=== PATIENT | male | born 1940 | race Caucasian/White ===

== ENCOUNTER → 2016-11-13 | Outpatient (CLI) | payer OTHER ==
[~2016-11-13] MED LIST: ADAP0.1G8 TOP; AMLO2.5T PO; ASPCH81 PO; ATOR-24 PO; CITA20TA9 PO; Centrum Silver PO; ESZO1TAB16 PO; FLM4 PO; GLC500 PO; LEVO75TA PO; LISI-725 PO; LORA-741 PO; METROGEL 1%; OMEP20CA9 PO; ONDA8TAB6 PO; PROC1TAB5 PO; RABE20TA5 PO; SITA100T3 PO
[2016-11-13 13:28] VITALS: BP 100/60; PULSE 106; TEMP 36.8; O2SAT 93
--- NOTE | 2016-11-13 16:35 | Radiation Oncology Follow-Up ---
Radiation Oncology Follow-Up Date of Visit Nov 13, 2016. Reason For Visit Annual follow-up Radiation Completion Date finished radiation to brain : 01-30-2011, and to lung 04-08-2011 Diagnosis (1) Lung cancer Permanent Comment: DIAGNOSIS: Metastatic lung cancer to the brain TREATMENT: 1. 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 Concurrent chemoradiation - 7200 cGy - 04/08/2011 followed by adjuvant chemotherapy which finished in 10/01/2011 Last Edited By: Fabiola Solis on Oct 16:41 Interim History Has been doing well over this past year. He denies any change in respiratory status. He can get some shortness of breath when going up steps. He has had no problems with headaches or dizziness no change in vision no problems with function of the upper or lower extremities. He's been followed closely by Dr. Solis for medical oncology and has had recheck scanning included PET scan as well as MRI of the brain. The MRI of the brain was performed on 01/31/2016. There is no evidence of acute infarction or interval intracranial hemorrhage. Unchanged T 2 prolongation within the left central semiovale. Unchanged other scattered foci of subcortical white matter T2 prolongation. No abnormal enhancement. No new lesions are identified. No new mass or mass effect. The ventricles and extra-axial spaces are unchanged with mild diffuse atrophy. There is no evidence of disease progression or new lesions. He had a PET scan 06/26/2016. This showed no suspicious metabolically active disease identified. Stable post radiation changes in the right upper lobe with healing posterior fourth through sixth rib fractures. Allergies Coded Allergies: No Known Allergies (Unverified , 05/09/11) Home Medications Scheduled Adapalene (Differin), 1 APPLN TOP HS Amlodipine (Norvasc), 5 MG PO DAILY Aspirin (Aspirin Tab-Chewable *), 81 MG PO DAILY Atorvastatin (Lipitor), 40 MG PO DAILY Citalopram Hydrobromide (Celexa), 40 MG PO DAILY Levothyroxine Sodium (Synthroid), 75 MCG PO DAILY Lisinopril (Zestril), 40 MG PO DAILY Lorazepam (Ativan), 0.5 MG PO prn tid Metformin HCL (Glucophage *), 1,000 MG PO BID Ondansetron Hcl (Zofran), 8 MG PO PRN Prochlorperazine Maleate (Compazine), 10 MG PO Q6HR PRN Rabeprazole Sodium (Aciphex), 1 TAB PO DAILY Sitagliptin Phosphate (Januvia), 50 MG PO DAILY Tamsulosin Hcl (Flomax *), 0.4 MG PO DAILY [Centrum Silver], 1 TABLET PO QD [Metrogel 1 %], QD Review of Systems Gastrointestinal: Symptoms: WNL Oral: Symptoms: No Problems Respiratory: Symptoms: SOB With Exertion Urinary: Symptoms: WNL Comments: "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- good now " Skin: Symptoms: No Problems Other Skin Symptoms: " 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 02-08-16 Physical Exam Vital Signs Date Time Temp Pulse Resp B/P Pulse Ox O2 Delivery O2 Flow Rate FiO2 11/13/16 13:28 36.8 106 18 100/60 93 Pain: Side: Bilateral Patient Pain Scale: 0 - 10 Initial Pain Intensity: 0.0 Fatigue: None General Appearance: no apparent distress Eyes: normal inspection, EOMI ENT: normal ENT inspection, hearing grossly normal Neck: no adenopathy, thyroid normal Respiratory/Chest: lungs clear, no respiratory distress, no accessory muscle use Cardiovascular: regular rate, rhythm, no gallop, no murmur Abdomen: non tender, soft, no organomegaly Extremities: non-tender, normal inspection, no pedal edema 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 Assessment & Plan Plan: Continue follow-up with Dr. Solis in medical oncology. Recheck scanning per Dr. Solis. A follow-up appointment with our office was not given. He may call if he has any questions or concerns please be happy to see him. Total Time In Follow-Up I spent 20 minutes speaking to the patient and performing examination. I spent 15 minutes reviewing information in completing this note. Copy To Silvestre Bee MD; Tomer Solis M.D.
== END | disposition home or self-care (01) ==
LOC: C.ONC 13:09
PROVIDERS: ATTEND Radiology Radiation Oncology
DX: Z08 Encounter for follow-up examination after completed treatment for malignant neoplasm (principal); Z92.3 Personal history of irradiation; Z85.118 Personal history of other malignant neoplasm of bronchus and lung

== ENCOUNTER 2017-03-09 13:41 | Emergency (ER) | payer OTHER ==
[~2017-03-09] VITALS: Ht 170.2 cm; Wt 69.7 kg
[~2017-03-09 13:41] MED LIST changes: -ESZO1TAB16 PO; -OMEP20CA9 PO
[2017-03-09 13:44] VITALS: BP 120/70; PULSE 114; TEMP 36.8; O2SAT 94; Ht 170.2 cm; Wt 69.7 kg
--- NOTE | 2017-03-09 14:36 | EMERGENCY ROOM VISIT NOTE ---
ED Visit Note First contact with patient: 14:15 CHIEF COMPLAINT: Right forearm injury HISTORY OF PRESENT ILLNESS: This 76-year-old male presents the ER with chief complaint of a bruise on his right forearm. The patient was seen at [facility] today and sent to the emergency room for an ultrasound of his right forearm. The patient fell less than 2 hours ago and struck the volar aspect of his forearm. The patient denies any elbow or upper arm pain. The patient denies any wrist pain. The patient only has minimal pain at the site of injury. REVIEW OF SYSTEMS:6 system review was performed and was negative unless stated otherwise in history of present illness. PMH: The patient is healthy; diabetes, hypertension, hernia repair, lung cancer SOCIAL HISTORY: Patient lives with his spouse. The patient denies any tobacco or alcohol use. PHYSICAL EXAM: Vital Signs: Were reviewed Reviewed Nurse's notes. GEN.: 76-year -old white male appears in no acute distress. MENTAL Status: Alert and oriented 3. RIGHT FOREARM: On the volar aspect of the mid forearm there is an area of ecchymosis consistent with a broken blood vessel. There is no surrounding erythema or palpable cord. Upper arm is nontender without erythema or edema. EMERGENCY DEPARTMENT COURSE: The patient was evaluated. The patient was independently evaluated by Dr. Segura who also agreed with treatment plan. I discussed with the patient that an ultrasound is not warranted at this time. If the patient has any increased pain and redness in the upper arm and ultrasound would be indicated at that time. The patient is in agreement with treatment plan and was discharged home in stable condition. DIAGNOSIS: Right Arm contusion DISCHARGE INSTRUCTIONS AND TREATMENT: Ice intermittently to the affected area over the next 24 hours then may switch to moist heat for an additional 2-3 days. Tylenol as needed for pain. Current/Historical Medications Scheduled Adapalene (Differin), 1 APPLN TOP HS Amlodipine (Norvasc), 5 MG PO DAILY Aspirin (Aspirin Tab-Chewable *), 81 MG PO DAILY Atorvastatin (Lipitor), 40 MG PO DAILY Citalopram Hydrobromide (Celexa), 40 MG PO DAILY Levothyroxine Sodium (Synthroid), 75 MCG PO DAILY Lisinopril (Zestril), 40 MG PO DAILY Lorazepam (Ativan), 0.5 MG PO prn tid Metformin HCL (Glucophage *), 1,000 MG PO BID Ondansetron Hcl (Zofran), 8 MG PO PRN Prochlorperazine Maleate (Compazine), 10 MG PO Q6HR PRN Rabeprazole Sodium (Aciphex), 1 TAB PO DAILY Sitagliptin Phosphate (Januvia), 50 MG PO DAILY Tamsulosin Hcl (Flomax *), 0.4 MG PO DAILY [Centrum Silver], 1 TABLET PO QD [Metrogel 1 %], QD Allergies Coded Allergies: No Known Allergies (Unverified , 05/09/11) Vital Signs Date Time Temp Pulse Resp B/P (MAP) Pulse Ox O2 Delivery O2 Flow Rate FiO2 03/09/17 13:44 36.8 114 18 120/70 94 Room Air Departure Information Referrals Silvestre Bee MD (PCP) Patient Instructions My [facility]
--- NOTE | 2017-03-09 16:45 | EMERGENCY ROOM VISIT NOTE ---
ED Visit Note First contact with patient: 14:15 I have seen and examined this patient in conjunction with Priya Bush and generally agree with the treatment plan as discussed.
[2017-07-30] MEDS ORDERED: ASPI81TA28 PO (13:36)
[2017-07-30] MEDS ORDERED: MULT-1093 PO (13:37)
[2017-07-30] MEDS ORDERED: AMLO-110 PO (13:44)
[2017-07-30] MEDS ORDERED: DIPH-437 PO (13:44)
[2017-07-30] MEDS ORDERED: TAMS0.4C38 PO (13:44)
[2017-07-30] MEDS ORDERED: LISI40TA PO (15:15)
[2017-08-01] MEDS ORDERED: PANT40TA PO (10:39)
== END 2017-03-09 14:47 | disposition home or self-care (01) ==
LOC: C.EDD 14:28
DX: S50.11XA Contusion of right forearm, initial encounter (principal); W19.XXXA Unspecified fall, initial encounter; E11.9 Type 2 diabetes mellitus without complications; I10 Essential (primary) hypertension; Z79.82 Long term (current) use of aspirin

== ENCOUNTER → 2018-01-06 | Outpatient (CLI) | payer OTHER ==
[~2018-01-06] MED LIST changes: +AMLO-110 PO; -AMLO2.5T PO; -ASPCH81 PO; +ASPI81TA28 PO; -ATOR-24 PO; +CITA40TA4 PO; -Centrum Silver PO; +DIPH-437 PO; -FLM4 PO; -GLC500 PO; -LISI-725 PO; +LISI40TA PO; +METF-384 PO; -METROGEL 1%; +MULT-1093 PO; -ONDA8TAB6 PO; +PANT40TA PO; -PROC1TAB5 PO; -SITA100T3 PO; +TAMS0.4C38 PO
== END | disposition home or self-care (01) ==
LOC: C.PATHSPEC 17:01
PROVIDERS: ATTEND Physician Assistant
DX: L57.0 Actinic keratosis (principal)

== ENCOUNTER → 2018-02-10 | Day surgery (SDC) | payer OTHER ==
[2018-01-06 13:09] VITALS: Ht 170.2 cm; Wt 72.7 kg
[~2018-02-10] VITALS: Ht 170.2 cm; Wt 72.7 kg
[~2018-02-10] MED LIST changes: +500ML BSS 0.3ML EPI 1:1000PF IRRIG ONE; +ACETAMINOPHEN 325 MG TAB PO PRN; +AMVISC PLUS 0.8ML SYRINGE INT OCU ONE; +ATROPINE SULFATE 0.1 MG/ML 5ML SYR IV PRN; +BROM0.07; +BSS FLUSH ONE; -CITA20TA9 PO; +DIFL0.0519; +EpINEphrine INJ 1MG/ML AMP 1 MG/ML AMP ONE; +GATI0.5S OP; +GATIFLOXACIN OP SOLN PER DROP CHARGE OPR SCH; +LACTATED RINGER'S 1000ML 500 ML IV SCH; +LIDOCAINE 3.5% OPH GEL PER APPLICATION CHARGE ONE; +LIDOCAINE HCL 1% MPF 2 ML VIAL ONE; +MIDAZOLAM HCL 1 MG/ML 2ML VIAL ONE; +OCUCOAT 1 ML SOLN IO ONE; +PHENYLEPHRINE HCL 10% OP SOLN PER DROP CHARGE OPR SCH; +POVIDONE-IODINE OP SOLN 30 ML BTL ONE; +PROPARACAINE 0.5% OP SOLN PER DROP CHARGE OPR SCH; -RABE20TA5 PO; +TOBRAMYCIN/DEXAMETHASONE OPH OINT PER APPLN CHARGE ONE
[2018-02-10] MEDS: PHENYLEPHRINE HCL 2.5% OP SOLN PER DROP CHARGE OPR SCH ×2 (06:37→06:42)
[2018-02-10] MEDS: TROPICAMIDE 1% OP SOLN PER DROP CHARGE OPR SCH ×2 (06:38→06:43)
[2018-02-10] MEDS: CYCLOPENTOLATE HCL 1% OP SOLN PER DROP CHARGE OPR SCH ×2 (06:39→06:44)
[2018-02-10] MEDS: KETOROLAC 0.5% OP SOLN PER DROP CHARGE OPR SCH ×2 (06:40→06:45)
--- NOTE | 2018-02-10 06:57 | History & Physical Bridge - SC ---
H&P Re-Evaluation Bridge Note: I have examined the patient, reviewed the History & Physical and in the interval since the performance of the History & Physical I have noted the following changes of clinical significance: Diagnosis: Right Cataract Procedure: Right Cataract Removal with Lens Implant No changes noted
--- NOTE | 2018-02-10 07:21 | Discharge Instructions-SurgCtr ---
Discharge Instructions Date of Service February 10, 2018. Visit Reason for Visit: Cataract Right Eye Discharge Discharge Diagnosis / Problem: cataract Discharge Goals Goal(s): Improve function Medications Stopped Medications Name(s): metformin. last dose friday Activity Recommendations Activity Limitations: per Instructions/Follow-up section Anesthesia . Post Anesthesia Instructions: If you have had General Anesthesia or IV Sedation: * Do not drive today. * Resume driving when surgeon permits. * Do not make important decisions or sign legal documents today. * Call surgeon for: 1. Temperature elevations greater than 101 degrees F. 2. Uncontrollable pain. 3. Excessive bleeding. 4. Persistent nausea and vomiting. 5. Medication intolerance (nausea, vomiting or rash). * For nausea and vomiting use only clear liquids such as: tea, soda, bouillon until nausea subsides, then gradually increase diet as tolerated. * If you have any concerns or questions, call your surgeon's office. If physician is unavailable and it is an emergency, call 911 or go to the nearest emergency room. . Diet Recommendations Home Diet: resume previous diet Procedures Procedures Performed: Right Cataract Phacoemulsification With Intraocular Lens Implant Pending Studies Studies pending at discharge: no Medical Emergencies . Who to Call and When: Medical Emergencies: If at any time you feel your situation is an emergency, please call 911 immediately. . Non-Emergent Contact Non-Emergency issues call your: Chute Feeder . . "Provider Documentation" section prepared by Aurelio Monahan. .
--- NOTE | 2018-02-10 07:21 | [facility] Operative Report ---
Operative Report Date of Service February 10, 2018. Operative Report 1. PREOPERATIVE DIAGNOSIS: Cataract of the right eye. 2. POSTOPERATIVE DIAGNOSIS: Same. 3. PROCEDURE: Phacoemulsification with intraocular lens implantation of the right eye. SURGEON: Dr. Aurelio Monahan. ANESTHESIA: Topical Lidocaine gel, 1% Non- Preserved intracameral Lidocaine, and monitored intravenous sedation. INDICATIONS FOR THE PROCEDURE: The patient is a 77 - year-old male with a history of cataract of the right eye causing significant visual impairment. The details of the proposed procedure were explained to the patient who asked appropriate questions and following discussion of all risks, benefits and alternatives agreed to have the procedure done. 4. OPERATION AND FINDINGS: DESCRIPTION OF PROCEDURE: After informed consent was obtained, the patient was brought to the Operating Room at the [facility]. The patient was placed in a supine position and then the right eye was prepped and draped in the usual sterile fashion for intraocular surgery. A drop of topical Lidocaine gel was placed in the operative eye. A wire lid speculum was then placed in the fornices. A corneal paracentesis was then created temporally. The Non-Preserved Lidocaine was then instilled into the anterior chamber. The anterior chamber was then pressurized with viscoelastic. A 2.0 mm clear corneal incision was then created temporally. A cystotome was inserted into the anterior chamber and used to create a tear in the anterior lens capsule. This capsular tear was then used to create a small flap and the flap was dragged in a counterclockwise direction in order to create a continuous curvilinear capsulorrhexis. Hydrodissection was accomplished with balanced salt solution. Phacoemulsification of the lens nucleus was then performed in a standard [id number] technique. The phaco time was 21 seconds with an average power of 9 %. The remaining cortical material was removed using irrigation aspiration. The capsular bag was then filled with viscoelastic. A [employer] MI60L +19.5 diopters lens was then loaded into the injector and injected into the capsular bag. The remaining viscoelastic was removed with the irrigation aspiration handpiece. The wound was hydrated and then checked and found to be watertight. The intraocular pressure was checked and found to be adequate. The wire lid speculum was removed and the patient's face was cleaned and dried. TobraDex ointment was placed in the inferior fornix. The patient was discharged to the Recovery Room having tolerated the procedure well. There were no complications. The patient will be seen tomorrow in the office for follow-up. I attest to the content of the Intraoperative Record and any orders documented therein. Any exceptions are noted below.
--- NOTE | 2018-02-10 07:39 | Anesthesia Progress Nt - [facility] ---
Anesthesia Post Op Note Date & Time February 10, 2018 at 07:39 Vital Signs Pain Intensity: 0 Vital Signs Past 12 Hours Date Time Temp Pulse Resp B/P (MAP) Pulse Ox O2 Delivery O2 Flow Rate FiO2 02/10/18 07:25 37.2 90 16 115/78 (90) 93 Room Air 02/10/18 06:25 36.6 104 16 147/87 (107) 96 Room Air Notes Mental Status: alert / awake / arousable, participated in evaluation Pt Amnestic to Procedure: Yes Nausea / Vomiting: adequately controlled Pain: adequately controlled Airway Patency, RR, SpO2: stable & adequate BP & HR: stable & adequate Hydration State: stable & adequate Anesthetic Complications: no major complications apparent
[2018-02-10 07:48] VITALS: BP 116/76; PULSE 86; O2SAT 94
== END | disposition home or self-care (01) ==
LOC: X.SURG 06:10
PROVIDERS: ATTEND Ophthalmology
DX: H26.9 Unspecified cataract (principal); E11.21 Type 2 diabetes mellitus with diabetic nephropathy; K21.9 Gastro-esophageal reflux disease without esophagitis; N40.0 Benign prostatic hyperplasia without lower urinary tract symptoms; E78.5 Hyperlipidemia, unspecified; D50.9 Iron deficiency anemia, unspecified; I12.9 Hypertensive chronic kidney disease with stage 1 through stage 4 chronic kidney disease, or unspecified chronic kidney disease; C34.11 Malignant neoplasm of upper lobe, right bronchus or lung; K22.70 Barrett's esophagus without dysplasia; E03.9 Hypothyroidism, unspecified; N18.3 Chronic kidney disease, stage 3 (moderate); Z79.82 Long term (current) use of aspirin; Z87.891 Personal history of nicotine dependence; Z87.19 Personal history of other diseases of the digestive system; Z83.3 Family history of diabetes mellitus; Z82.49 Family history of ischemic heart disease and other diseases of the circulatory system; Z82.5 Family history of asthma and other chronic lower respiratory diseases

== ENCOUNTER 2025-09-22 07:20 | Inpatient (IN) ==
--- NOTE | 2025-09-22 07:43 | Emergency Department Note ---
Impression & Plan Sepsis, C. difficile colitis, Acute renal failure, Acute dehydration, Acute hypotension, Acute hyponatremia, Pleural effusion, Hypothermia, Hypocalcemia, Abdominal ascites ED Provider Note NAME: CORDELL OWENS AGE: 84 SEX: M : 1940 ARRIVES VIA: Ambulance INFORMANT: Patient, EMS ED PROVIDER(S): Lazaro Fuller DO CHIEF COMPLAINT: Generalized weakness HPI: The patient is an 84-year-old male who presented to the emergency department for an evaluation of generalized weakness. The patient was in our facility recently for pneumonia. He went home and was doing well. The patient started having problems with diarrhea. He tested positive for C. difficile. The patient states that he having generalized weakness and shortness of breath over the last 48 hours. He normally does not have to wear oxygen all the time but recently had to increase his oxygen. The patient was placed on a nonrebreather mask prior to arrival. His oxygen saturation was 84%. The patient is had no vomiting. He states he does have some chest discomfort but more of a pressure. He denies having any abdominal pain. He denies having any rectal bleeding. He states the antibiotic that he was started on helped his C. difficile diarrhea. ROS: See above HPI for pertinent positives & negatives. A total of 10 systems reviewed and were otherwise negative. PAST MEDICAL HISTORY: See Below PAST SURGICAL HISTORY: See Below FAMILY HISTORY: See Below SOCIAL HISTORY: See Below HOME MEDICATIONS: See Below ALLERGIES: See Below VITALS: See Below PHYSICAL EXAMINATION: GENERAL: The patient is awake and alert. The patient is anxious appearing. EYES: The conjunctivae are clear. The pupils are round and reactive. EARS, NOSE, MOUTH AND THROAT: The nose is without any evidence of any deformity. Mucous membranes are dry. NECK: The neck is nontender and supple. RESPIRATORY: Tachypnea was noted. Conversational dyspnea was noted. Lung sounds are relatively clear except for the right base. There were rales at the right base. CARDIOVASCULAR: Regular rate and rhythm noted there no murmurs rubs or gallops normal S1 normal S2. GASTROINTESTINAL: The abdomen is soft. Abdomen is nontender. MUSCULOSKELETAL/EXTREMITIES: There is no evidence of gross deformity full range of motion is noted in the hips and shoulders. SKIN: Skin is cool and dry. There is mild pedal edema noted. NEUROLOGIC: Patient is awake alert and oriented x3. Strength is symmetric but diminished. MEDICAL DECISION MAKING: The patient is an 84-year-old male who presented to the emergency department for an evaluation of generalized weakness. The patient was septic in appearance. He was hypotensive and hypothermic. He was treated with IV fluids as well as IV steroids and IV antibiotics in usual fashion. I discussed the patient's laboratory and radiographic studies with him and his family numbers. I discussed his case with the on-call ICU attending. I also notified the [facility] team. They will evaluate the patient in the emergency department for further management and disposition. The patient was found to have multiple electrolyte abnormalities. It is possible this is being caused by his C. difficile colitis. He said diarrhea for many days. Reportedly he tested positive for C. difficile and was started on Dificid. He is had 2 doses and has had significant improvement of his diarrhea. Initial CAT scans were ordered with contrast however given the elevation in creatinine we will start with noncontrast imaging. Triage Nursing notes reviewed. Prior medical records reviewed Vital Signs: reviewed and remarkable for hypotension and hypothermia. Differential diagnosis: Infection, dehydration, metabolic abnormality, hypo/hyperglycemia, electrolyte disturbance, anemia, hypoxia, cardiac sources, intracerebral event, toxicologic, neurologic, as well as other pathologies. ER treatment provided: See below Diagnostics interpreted by me: ECG: EKG was obtained in the emergency department. My interpretation is sinus rhythm at 70 bpm. PACs were noted. There was no acute ST segment abnormalities noted. This was compared to a tracing from August 24, 2025. There was a decrease in the rate otherwise no specific changes noted. Prehospital EKG was reviewed. My interpretation is normal sinus rhythm at 68 bpm. There is no ectopy. Nonspecific inferior ST abnormalities were noted. This is resolved on the tracing obtained in the emergency department. Cardiac Monitoring: An order was placed for continuous cardiac monitoring. The monitor shows a rate of 65 bpm with sinus rhythm. Laboratory studies: As stated above and show below. Imaging studies: See below. Radiographic imaging was reviewed by myself Consultation(s): I discussed this case with Dr. Conte who is on for the ICU. The [facility] hospitalist group, Dr. Mobley was notified about the patient. ED COURSE: Procedures: none Critical Care: I have personally spent greater than 45 minutes of critical care time in the direct management of this patient. This includes bedside care, interpretation of diagnostic studies, and testing, discussion with consultants, patient, and family members, and other required patient management activities. This 45 minutes is in excess of all separately billable procedures. Past Med/Surg History Problem List (Updated 09/22/25 @ 09:29 by Jay Owen MD) Septic shock Abdominal ascites (Acute) Hypocalcemia (Acute) Hypothermia (Acute) Pleural effusion (Acute) Acute hyponatremia (Acute) Acute hypotension (Acute) Acute dehydration (Acute) Acute renal failure (Acute) C. difficile colitis (Acute) Sepsis (Acute) Hypoxia (Acute) Pneumonia (Acute) COPD (chronic obstructive pulmonary disease) (Acute) PNA (pneumonia) NIKOLAY (iron deficiency anemia) (Chronic) Lung cancer (Chronic) "DIAGNOSIS: Metastatic lung cancer to the brain TREATMENT: 1. 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 Concurrent chemoradiation - 7200 cGy - 04/08/2011 followed by adjuvant chemotherapy which finished in 10/01/2011" Encounter for pre-operative examination DM II (diabetes mellitus, type II), controlled (Chronic) BPH (benign prostatic hyperplasia) (Chronic) HLD (hyperlipidemia) (Chronic) HTN (hypertension) (Chronic) Anxiety (Chronic) Roman's esophagus (Chronic) Gastric ulcer (Acute) resolved Medical History Hx of gastric ulcer Depression Hypothyroidism History of lung cancer DX 2010 - ON [place] TILL 2014 TREATMENT: 1. 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 Concurrent chemoradiation - 7200 cGy - 04/08/2011 followed by adjuvant chemotherapy which finished in 10/01/2011" History of Mohs micrographic surgery for skin cancer X2 History of skin cancer Dry eyes Acid reflux Surgical History H/O eye surgery Right Eye Descemet Membrane Endothelial Keratoplasty (DMEK) History of left cataract surgery History of right cataract surgery History of endoscopy History of hernia surgery History of colonoscopy Family History Grandfather Family history of diabetes mellitus Social History Smoking Status: Former smoker Tobacco Type: Cigarettes Age Started Using Tobacco: 19; Age Quit Using Tobacco: 49; packs per day: 1; Second Hand Exposure: No; Do You Dip or Chew Tobacco: No; Hx Alcohol Use: No Hx Substance Use: No Preferred Language: French Communication Ability: Effective Property Accountant Required: No Beliefs That Will Affect Care: None Current Living Situation: Spouse Other Information That Helps Us Care for You: No Feels Safe at Home: Yes Safety Concerns: Feels Safe At This Time Assistive Devices: Cane and Glasses Allergies Allergies Allergy/AdvReac Type Severity Reaction Status Date / Time pollen extracts Allergy Intermediate congestion Verified 09/09/25 08:57 Home Meds Home Medications Medication Instructions Recorded Confirmed amlodipine 2.5 mg tablet (Norvasc) 2.5 mg PO BID 03/01/22 09/22/25 atorvastatin 40 mg tablet (Lipitor) 40 mg PO QAM 03/01/22 09/22/25 citalopram 20 mg tablet (Celexa) 20 mg PO QAM 03/01/22 09/22/25 cyclosporine 0.05 % eye drops in a 1 drp OPB BID 03/01/22 09/22/25 dropperette (Restasis) diphenhydramine HCl 25 mg capsule 25 mg PO DIRECTED PRN NEEDED 03/01/22 09/22/25 (Benadryl) dutasteride 0.5 mg capsule 0.5 mg PO QAM 03/01/22 09/22/25 levothyroxine 75 mcg capsule 75 mcg PO DAILYBB 03/01/22 09/22/25 lisinopril 20 mg tablet 20 mg PO QAM 03/01/22 09/22/25 lorazepam 0.5 mg tablet (Ativan) 0.5 mg PO Q8H PRN Anxiety 03/01/22 09/22/25 qjvgnfhmftxw-odbovpux-oskaad tablet 1 tab PO QAM 03/01/22 09/22/25 pantoprazole 40 mg tablet,delayed 40 mg PO DAILY 03/01/22 09/22/25 release (Protonix) tamsulosin 0.4 mg capsule (Flomax) 0.4 mg PO QAM 03/01/22 09/22/25 acetaminophen 500 mg tablet 500 mg PO Q6H PRN PAIN/FEVER 08/24/25 09/22/25 (Tylenol Extra Strength) fluorometholone acetate 0.1 % eye 1 drp OPB QAM 08/24/25 09/22/25 drops,suspension (Flarex) peg 400-propylene glycol 0.4 %-0.3 1 drp OPB DIRECTED PRN Dry Eyes 08/24/25 09/22/25 % eye drops (Systane (propylene glycol)) sildenafil 100 mg tablet 100 mg PO DAILY PRN Sexual Activity 08/24/25 09/22/25 Previous Rx's Medication Instructions Recorded Anoro Ellipta 62.5 mcg-25 1 inh inhalation DAILY #60 ea 09/16/25 mcg/actuation powder for inhalation (umeclidinium-vilanterol) Results & Data (ED) Vital Signs Vital Signs - 24 hr 09/22/25 07:38 09/22/25 07:42 09/22/25 07:45 Temperature Temperature Source Pulse Rate 65 65 Pulse Rate from SpO2 Sensor Respiratory Rate 26 H 24 Blood Pressure 62/35 L Blood Pressure Mean 48 Pulse Oximetry Oxygen Delivery Method Oxygen Flow Rate Sepsis Recent Fever Within 48 Hours Sepsis New/Unexplained Change in Mental Status Sepsis Action Taken by Nursing 09/22/25 07:47 09/22/25 07:51 09/22/25 07:53 Temperature Temperature Source Pulse Rate 69 70 Pulse Rate from SpO2 Sensor Respiratory Rate 28 H Blood Pressure 74/32 L 77/36 L Blood Pressure Mean 53 49 Pulse Oximetry Oxygen Delivery Method Oxygen Flow Rate Sepsis Recent Fever Within 48 Hours Sepsis New/Unexplained Change in Mental Status Sepsis Action Taken by Nursing 09/22/25 07:54 09/22/25 07:55 09/22/25 08:00 Temperature Temperature Source Pulse Rate 69 68 Pulse Rate from SpO2 Sensor 77 68 Respiratory Rate 25 H 27 H Blood Pressure 76/40 L 82/37 L Blood Pressure Mean 52 52 Pulse Oximetry 100 96 Oxygen Delivery Method Nasal Cannula Nasal Cannula Oxygen Flow Rate 4 4 Sepsis Recent Fever Within 48 Hours Sepsis New/Unexplained Change in Mental Status Sepsis Action Taken by Nursing 09/22/25 08:00 09/22/25 08:02 09/22/25 08:02 Temperature 35.6 C L Temperature Source Axillary Pulse Rate 70 Pulse Rate from SpO2 Sensor Respiratory Rate 25 H Blood Pressure 82/37 L 72/43 L Blood Pressure Mean 53 52 Pulse Oximetry 99 98 Oxygen Delivery Method Room Air Room Air Oxygen Flow Rate Sepsis Recent Fever Within 48 Hours Yes Sepsis New/Unexplained Change in Mental Status Yes Sepsis Action Taken by Nursing Physician Notified 09/22/25 08:05 09/22/25 08:09 09/22/25 08:10 Temperature Temperature Source Pulse Rate 75 Pulse Rate from SpO2 Sensor Respiratory Rate 17 Blood Pressure 75/39 L 86/47 L Blood Pressure Mean 43 52 Pulse Oximetry 96 Oxygen Delivery Method Nasal Cannula Oxygen Flow Rate 4 Sepsis Recent Fever Within 48 Hours Sepsis New/Unexplained Change in Mental Status Sepsis Action Taken by Nursing 09/22/25 08:10 09/22/25 08:11 09/22/25 08:12 Temperature Temperature Source Pulse Rate 73 Pulse Rate from SpO2 Sensor 85 Respiratory Rate 11 L Blood Pressure 86/47 L Blood Pressure Mean 52 Pulse Oximetry 97 100 Oxygen Delivery Method Nasal Cannula Oxygen Flow Rate 4 Sepsis Recent Fever Within 48 Hours Sepsis New/Unexplained Change in Mental Status Sepsis Action Taken by Nursing 09/22/25 08:15 09/22/25 08:18 09/22/25 08:20 Temperature Temperature Source Pulse Rate 67 Pulse Rate from SpO2 Sensor 66 Respiratory Rate 23 Blood Pressure 78/39 L 78/39 L 79/41 L Blood Pressure Mean 50 52 53 Pulse Oximetry 100 Oxygen Delivery Method Oxygen Flow Rate Sepsis Recent Fever Within 48 Hours Sepsis New/Unexplained Change in Mental Status Sepsis Action Taken by Nursing 09/22/25 08:20 09/22/25 08:20 09/22/25 08:20 Temperature Temperature Source Pulse Rate Pulse Rate from SpO2 Sensor Respiratory Rate Blood Pressure 79/41 L 79/41 L 79/41 L Blood Pressure Mean 53 53 53 Pulse Oximetry Oxygen Delivery Method Oxygen Flow Rate Sepsis Recent Fever Within 48 Hours Sepsis New/Unexplained Change in Mental Status Sepsis Action Taken by Nursing 09/22/25 08:21 09/22/25 08:45 09/22/25 08:48 Temperature Temperature Source Pulse Rate 65 66 60 Pulse Rate from SpO2 Sensor 66 65 66 Respiratory Rate 25 H 22 21 Blood Pressure 76/39 L Blood Pressure Mean 51 Pulse Oximetry 100 100 96 Oxygen Delivery Method Nasal Cannula Nasal Cannula Nasal Cannula Oxygen Flow Rate 4 4 4 Sepsis Recent Fever Within 48 Hours Sepsis New/Unexplained Change in Mental Status Sepsis Action Taken by Nursing 09/22/25 08:50 09/22/25 08:51 09/22/25 09:09 Temperature Temperature Source Pulse Rate 63 Pulse Rate from SpO2 Sensor 62 64 Respiratory Rate 21 Blood Pressure 75/35 L Blood Pressure Mean 42 Pulse Oximetry 95 92 Oxygen Delivery Method Nasal Cannula Nasal Cannula Oxygen Flow Rate 4 4 Sepsis Recent Fever Within 48 Hours Sepsis New/Unexplained Change in Mental Status Sepsis Action Taken by Nursing 09/22/25 09:11 09/22/25 09:12 09/22/25 09:15 Temperature Temperature Source Pulse Rate 64 Pulse Rate from SpO2 Sensor 64 Respiratory Rate 24 Blood Pressure 82/41 L 79/36 L Blood Pressure Mean 59 46 Pulse Oximetry 96 Oxygen Delivery Method Nasal Cannula Oxygen Flow Rate 4 Sepsis Recent Fever Within 48 Hours Sepsis New/Unexplained Change in Mental Status Sepsis Action Taken by Nursing 09/22/25 09:15 09/22/25 09:18 09/22/25 09:20 Temperature Temperature Source Pulse Rate 66 66 Pulse Rate from SpO2 Sensor 69 59 L Respiratory Rate 22 23 Blood Pressure 79/36 L 77/37 L Blood Pressure Mean 50 53 Pulse Oximetry 96 96 Oxygen Delivery Method Nasal Cannula Nasal Cannula Oxygen Flow Rate 4 4 Sepsis Recent Fever Within 48 Hours Sepsis New/Unexplained Change in Mental Status Sepsis Action Taken by Nursing 09/22/25 09:21 09/22/25 09:24 09/22/25 09:25 Temperature Temperature Source Pulse Rate 65 64 Pulse Rate from SpO2 Sensor 55 L Respiratory Rate 21 22 Blood Pressure 81/44 L Blood Pressure Mean 57 Pulse Oximetry 96 90 Oxygen Delivery Method Nasal Cannula Nasal Cannula Oxygen Flow Rate 4 4 Sepsis Recent Fever Within 48 Hours Sepsis New/Unexplained Change in Mental Status Sepsis Action Taken by Nursing 09/22/25 09:25 Temperature Temperature Source Pulse Rate Pulse Rate from SpO2 Sensor Respiratory Rate Blood Pressure 81/44 L Blood Pressure Mean 57 Pulse Oximetry Oxygen Delivery Method Oxygen Flow Rate Sepsis Recent Fever Within 48 Hours Sepsis New/Unexplained Change in Mental Status Sepsis Action Taken by Care Home Medications Current Medication List: was personally reviewed by me Laboratory Data Attestation: I reviewed the patient's lab results. 09/22/25 07:50 09/22/25 11:02 Lab Results 09/22/25 09/22/25 Range/Units 07:50 07:58 WBC 19.31 H (4.8-10.8) K/ul RBC 3.37 L (4.70-6.10) M/uL Hgb 11.2 L (14.0-18.0) g/dL Hct 32.0 L (42.0-52.0) % MCV 95.0 (80.0-100.0) fL MCH 33.2 (25.0-34.0) pg MCHC 35.0 (32.0-36.0) g/dL RDW Std Deviation 53.1 H (36.4-46.3) fL RDW Coeff of Vanessa 15.0 H (11.5-14.5) % Plt Count 396 (130-400) K/uL MPV 9.8 (9.4-12.4) fL Immature Gran % (Auto) 3.7 % Neut % (Auto) 86.4 % Lymph % (Auto) 1.7 % Bureau % (Auto) 7.9 % Eos % (Auto) 0.1 % Baso % (Auto) 0.2 % Neut # (Auto) 16.69 H (1.40-6.50) K/uL Lymph # (Auto) 0.32 L (1.20-3.40) K/uL Bureau # (Auto) 1.53 H (0.11-0.59) K/uL Eos # (Auto) 0.01 (0.00-0.50) K/uL Baso # (Auto) 0.04 (0.00-0.20) K/uL Immature Gran # (Auto) 0.72 H (0.01-0.20) K/uL Toxic Vacuolation 1+ Echinocytes 1+ PT 11.4 (9.0-12.0) Seconds INR 1.1 (0.9-1.1) APTT 31 (21-31) Seconds PTT Ratio 1.1 VBG pH 7.05 L (7.36-7.41) VBG pCO2 33 L (38-50) mmHg VBG pO2 44 mmHg VBG HCO3 9 mmol/L VBG O2 Saturation 67.6 % VBG Base Excess -20.4 mEq/L Sodium 121 L (136-145) mmol/L Potassium 4.7 (3.5-5.1) mmol/L Chloride 94 L (98-107) mmol/L Carbon Dioxide 10 L (21-32) mmol/L Anion Gap 17 H (3-11) BUN 116 H (6-23) mg/dl Creatinine 6.40 H* (0.6-1.4) mg/dl Est Cr Clr Drug Dosing 7.9 ml/min eGFR 8.05 BUN/Creatinine Ratio 18.1 (10-20) Glucose 174 H (70-99(Fasting)) mg/dl Osmolality 296 (280-300) mOsm/kg Lactate 3.2 H* (0.4-2.0) mmol/L Calcium 7.3 L (8.6-10.3) mg/dl Magnesium 2.3 (1.7-2.4) mg/dl Total Bilirubin 0.3 (0.2-1.0) mg/dl Direct Bilirubin 0.1 (0-0.2) mg/dl AST 37 (13-39) U/L ALT 35 (7-52) U/L Alkaline Phosphatase 114 H (34-104) U/L Troponin I High Sens 49.1 H (0-20) pg/ml Total Protein 4.7 L (6.0-8.3) gm/dl Albumin 2.2 L (3.4-5.0) gm/dl Procalcitonin 5.51 H (0-0.5) ng/ml Urine Color Dark Yellow Urine Appearance Clear (Clear) Urine pH 5.0 (4.5-7.5) Ur Specific [place] 1.021 (1.000-1.030) Urine Protein Trace H (Negative) Urine Glucose (UA) Negative (Negative) Urine Ketones Trace H (Negative) Urine Blood Negative (Negative) Urine Nitrite Negative (Negative) Urine Bilirubin 1+ H (Negative) Urine Urobilinogen Negative (Negative) Ur Leukocyte Esterase 1+ H (Negative) Urine WBC (Auto) 0-5 (0-5) /hpf Urine RBC (Auto) 11-20 H (0-2) /hpf U Hyaline Cast (Auto) >20 H (0-2) /lpf U Epithel Cells (Auto) 0-2 (0-2) /hpf Urine Bacteria (Auto) None Seen (None Seen) Urine Mucus Present A (None Prsent) Urine Comment SARS-CoV-2 (PCR) NEGATIVE (Negative) Influenza Type A (PCR) Negative (Neg) Influenza Type B (PCR) Negative (Neg) RSV (RT-PCR) Negative (Neg) Administered Medications Norepinephrine Bitartrate (Levophed/D5w) 4 mg in 250 mls @ 24.165 mls/hr IV .[id number] [facility]; Protocol Stop: 10/22/25 09:14 Last Titration: 09/22/25 12:39 Dose: 0.09 mcg/kg/min, 24.2 mls/hr Documented By: MAHAMED Co-signed By: PARI Titration: 09/22/25 10:02 Dose: 0.07 mcg/kg/min, 18.8 mls/hr Documented By: MMF Co-signed By: TDM Admin: 09/22/25 09:26 Dose: 0.05 mcg/kg/min, 13.4 mls/hr Documented By: MMF Co-signed By: DM Discontinued Medications Hydrocortisone Sodium Succinate (Hydrocortisone Sod Succinate 100 Mg/2 Ml Vial) 200 mg IV NOW STA Stop: 09/22/25 08:44 Last Admin: 09/22/25 08:50 Dose: 200 mg Documented By: MMF Sodium Chloride (Nss) 1,000 mls @ 999 mls/hr IV .Q1H1M ONE Stop: 09/22/25 08:28 Last Infusion: 09/22/25 08:31 Dose: Infused Documented By: Admin: 09/22/25 08:13 Dose: 999 mls/hr Documented By: MMF Sodium Chloride (Nss) 1,000 mls @ 999 mls/hr IV .Q1H1M ONE Stop: 09/22/25 09:29 Last Infusion: 09/22/25 08:43 Dose: Infused Documented By: Admin: 09/22/25 08:00 Dose: 999 mls/hr Documented By: MMF Piperacillin Sod/Tazobactam Sod (Zosyn) 4.5 gm in 100 mls @ 200 mls/hr IV NOW ONE; Protocol Stop: 09/22/25 08:58 Last Infusion: 09/22/25 09:42 Dose: Infused Documented By: Admin: 09/22/25 08:43 Dose: 200 mls/hr Documented By: MMF Sodium Chloride (Nss) 1,000 mls @ 999 mls/hr IV .Q1H1M ONE Stop: 09/22/25 09:43 Last Infusion: 09/22/25 09:42 Dose: Infused Documented By: Admin: 09/22/25 08:47 Dose: 999 mls/hr Documented By: MMF Metronidazole (Flagyl) 500 mg in 100 mls @ 100 mls/hr IV NOW STA; Protocol Stop: 09/22/25 10:16 Last Infusion: 09/22/25 10:26 Dose: Infused Documented By: Admin: 09/22/25 09:26 Dose: 100 mls/hr Documented By: CASSANDRA Vancomycin HCl (Vancomycin Hcl 250 Mg Cap) 500 mg PO ONE ONE Stop: 09/22/25 09:31 Last Admin: 09/22/25 10:02 Dose: 500 mg Documented By: CASSANDRA Imaging Data Attestation: I personally reviewed and interpreted this imaging study as follows: My Impression: KUB was obtained in the emergency department. My interpretation is dilated loops of bowel noted, there is no free air, final report below. 1 view chest x-ray was obtained in the emergency department. My interpretation is atelectasis and pleural effusion noted on the right, final report below. Radiologist's Impression: Chest X-Ray 09/22/25 07:28 EXAM: Radiograph of the Chest 1 View INDICATION: Sepsis TECHNIQUE: Frontal view of the chest. COMPARISON: 08/25/2025 FINDINGS: Lungs and pleural spaces: Increased small right pleural effusion and right basilar airspace consolidation. New coarse bandlike atelectasis noted in the left base and right Ravindra hilum. Improved right upper lobe infiltrate. No pneumothorax. Heart: Stable prominent shadow. Mediastinum: Normal contour. Bones/joints: No fracture, erosion or dislocation. Soft tissues: No abnormality noted. No radiopaque foreign body noted. Vasculature: Stable ectatic aorta. Upper abdomen: No abnormality noted. IMPRESSION: 1. New right basilar infiltrate concerning for pneumonia and increased small right pleural effusion. 2. Improved right upper lobe infiltrate. ACT 112: N/A Electronically signed by Merari Arana 09-22-2025 08:31 AM KUB X-Ray 09/22/25 07:43 EXAM: Radiograph of the Abdomen 1 View INDICATION: Sepsis. Diarrhea. TECHNIQUE: Frontal supine view of the abdomen/pelvis. COMPARISON: No relevant prior studies available. FINDINGS: Limitations: None. Lower thorax: Patchy basilar infiltrates noted. Gastrointestinal tract: Air scattered throughout non-dilated intestinal loops. Organs: Catheter projects over the urinary bladder. Bones/joints: No fracture, erosion or dislocation. Soft tissues: Edematous colonic loops noted with gasless rectum. IMPRESSION: Edematous colon most concerning for colitis. CT abdomen and pelvis recommended preferably with IV contrast. ACT 112: N/A Electronically signed by Merari Arana 09-22-2025 08:33 AM Abdomen/Pelvis CT 09/22/25 08:42 EXAM: CT Abdomen and Pelvis Without Intravenous Contrast INDICATION: C. difficile colitis. Acute renal failure. Sepsis. TECHNIQUE: Axial computed tomography images of the abdomen and pelvis without intravenous contrast. Sagittal and coronal reformatted images were created and reviewed. This CT exam was performed using one or more of the following dose reduction techniques: automated exposure control, adjustment of the mA and/or kV according to patient size, and/or use of iterative reconstruction technique. COMPARISON: No relevant prior studies available. FINDINGS: Limitations: None. Lung bases: See separately dictated chest CT report. ABDOMEN: Liver: Lack of intravenous contrast limits detection of some masses. No abnormality noted. Gallbladder and bile ducts: No calcified stones or surrounding fluid. No ductal dilation. Pancreas: No pancreatic mass, calcification, inflammation or ductal dilation noted. Spleen: No acute abnormality noted. Adrenals: No acute abnormality noted. Kidneys and ureters: Simple bilateral renal cysts noted. No follow-up necessary. No stones or hydronephrosis. Stomach and bowel: There is moderate thickening and inflammation of the entire colon. There is thickening of distal small bowel loops. No small bowel obstruction. No visible pneumatosis. PELVIS: Appendix: The appendix is not distinctly defined. Bladder: Catheter balloon inflated in the urinary bladder which is collapsed and not optimally assessed. No stone noted. Reproductive: No abnormalities noted. ABDOMEN and PELVIS: Intraperitoneal space: Small amounts of free fluid in the abdomen and pelvis. No free air. No loculated collection. Bones/joints: Degenerative changes noted throughout the spine. No acute osseous abnormality seen. Soft tissues: No acute abnormality noted. Vasculature: Atherosclerotic calcification of the aorta and branches. No aneurysm. Lymph nodes: No pathologically enlarged lymph nodes. IMPRESSION: 1. Moderate to severe pancolitis with probable backwash ileitis. 2. Mild ascites without abscess. ACT 112: N/A Electronically signed by Merari Arana 09-22-2025 09:[address] 09/22/25 08:42 EXAM: CT Chest Without Intravenous Contrast INDICATION: Sepsis. C. difficile colitis. Shortness of breath. TECHNIQUE: Axial computed tomography images of the chest without intravenous contrast. Sagittal and coronal reformatted images were created and reviewed. This CT exam was performed using one or more of the following dose reduction techniques: automated exposure control, adjustment of the mA and/or kV according to patient size, and/or use of iterative reconstruction technique. COMPARISON: 08/25/2025 t physical FINDINGS: Limitations: None. Lungs and pleural spaces: Increased small layering right pleural effusion with maximal thickness in the right posterior costophrenic sulcus of 5.2 cm. Stable trace left pleural effusion and thickening. No pneumothorax. Stable right upper lobe irregular segmental airway thickening and bronchiectasis. Increasing consolidation in the apical and posterior right upper lobe. Underlying ground glass infiltrate is improved. There is increased dependent atelectasis in the lower lobes. Heart: Stable enlargement. There is some iatrogenically introduced air in the right ventricle which is not an atypical finding. Mediastinum: The soft distal half of the esophagus is distended with fluid and mildly thickened. Thyroid: No abnormality noted. Bones/joints: No acute changes. Soft tissues: No acute abnormality noted. Vasculature: No abnormality noted. No thoracic aortic aneurysm. Lymph nodes: No enlarged lymph nodes. Intraperitoneal space: Free fluid noted in the upper abdomen. No free air in the upper abdomen. IMPRESSION: 1. Increased right pleural effusion. 2. Increased consolidation in the right upper lobe with stable irregular segmental upper lobe airway thickening. 3. Distended, thickened esophagus with fluid. 4. Free fluid noted in the upper abdomen. ACT 112: N/A Electronically signed by Merari Arana 09-22-2025 09:30 AM Discharge Plan Visit Data Chief Complaint: Weakness Stated Complaint: SOB, CHEST PAIN, CDIFF ED Provider: Lazaro Fuller Discharge Problem: Sepsis, C. difficile colitis, Acute renal failure, Acute dehydration, Acute hypotension, Acute hyponatremia, Pleural effusion, Hypothermia, Hypocalcemia, Abdominal ascites Patient Disposition: Admitted As Inpatient Condition: Fair Discharge Instructions Interventions: ED Discharge Assessment Last Done: 09/22/25 09:56
[2025-09-22] MEDS: SODIUM CHLORIDE 0.9% 1,000 ML IV ONE ×3 (08:00→08:47)
[2025-09-22 08:01] LABS: Base Excess VBG -20.4 mEq/L; HCO3 VBG 9 mmol/L; Oxygen Saturation VBG 67.6 %; PCO2 VBG 33 mmHg (38-50); PO2 VBG 44 mmHg; pH VBG 7.05 (7.36-7.41)
[2025-09-22 08:09] LABS: Hematocrit (blood only) 32.0 % (42.0-52.0); Hemoglobin 11.2 g/dL (14.0-18.0); Mean Corpuscular Hemoglobin 33.2 pg (25.0-34.0); Mean Corpuscular Volume 95.0 fL (80.0-100.0); Platelet Count 396 K/uL (130-400); RDW Standard Deviation 53.1 fL (36.4-46.3); Red Blood Count 3.37 M/uL (4.70-6.10); White Blood Count 19.31 K/ul (4.8-10.8)
[2025-09-22 08:26] LABS: Appearance Urine Clear (Clear); Bacteria Urine Automated None Seen (None Seen); Cast Urine Automated >20 /lpf (0-2); Epithelial Cell Urine Auto 0-2 /hpf (0-2); Glucose Urine UA Negative (Negative); WBC Urine Automated 0-5 /hpf (0-5)
--- NOTE | 2025-09-22 08:32 | XRay Report ---
EXAM: Radiograph of the Chest 1 View INDICATION: Sepsis TECHNIQUE: Frontal view of the chest. COMPARISON: 08/25/2025 FINDINGS: Lungs and pleural spaces: Increased small right pleural effusion and right basilar airspace consolidation. New coarse bandlike atelectasis noted in the left base and right Ravindra hilum. Improved right upper lobe infiltrate. No pneumothorax. Heart: Stable prominent shadow. Mediastinum: Normal contour. Bones/joints: No fracture, erosion or dislocation. Soft tissues: No abnormality noted. No radiopaque foreign body noted. Vasculature: Stable ectatic aorta. Upper abdomen: No abnormality noted. IMPRESSION: 1. New right basilar infiltrate concerning for pneumonia and increased small right pleural effusion. 2. Improved right upper lobe infiltrate. ACT 112: N/A Electronically signed by Merari Arana 09-22-2025 08:31 AM
--- NOTE | 2025-09-22 08:33 | XRay Report ---
EXAM: Radiograph of the Abdomen 1 View INDICATION: Sepsis. Diarrhea. TECHNIQUE: Frontal supine view of the abdomen/pelvis. COMPARISON: No relevant prior studies available. FINDINGS: Limitations: None. Lower thorax: Patchy basilar infiltrates noted. Gastrointestinal tract: Air scattered throughout non-dilated intestinal loops. Organs: Catheter projects over the urinary bladder. Bones/joints: No fracture, erosion or dislocation. Soft tissues: Edematous colonic loops noted with gasless rectum. IMPRESSION: Edematous colon most concerning for colitis. CT abdomen and pelvis recommended preferably with IV contrast. ACT 112: N/A Electronically signed by Merari Arana 09-22-2025 08:33 AM
[2025-09-22 08:41] LABS: Alanine Aminotransferase 35.0 U/L (7-52); Albumin Level 2.2 gm/dl (3.4-5.0); Alkaline Phosphatase 114.0 U/L (34-104); Anion Gap 17.0 (3-11); Bilirubin,Total 0.3 mg/dl (0.2-1.0); Blood Urea Nitrogen 116.0 mg/dl (6-23); Calcium 7.3 mg/dl (8.6-10.3); Carbon Dioxide 10.0 mmol/L (21-32); Chloride 94.0 mmol/L (98-107); Creatinine Clr Calc Pharmacy 7.9 ml/min; Glucose 174.0 mg/dl (70-99(Fasting)); INR 1.1 (0.9-1.1); Magnesium 2.3 mg/dl (1.7-2.4); Partial Thromboplastin Time 31 Seconds (21-31); Potassium 4.7 mmol/L (3.5-5.1); Prothrombin Time 11.4 Seconds (9.0-12.0); Sodium 121.0 mmol/L (136-145); Total Protein 4.7 gm/dl (6.0-8.3)
[2025-09-22] MEDS: PIPERACILLIN/TAZOBACTAM 4.5 GM/100 ML BAG IV ONE (08:43)
[2025-09-22 08:44] LABS: Influenza A virus by PCR Negative (Neg); Influenza B virus by PCR Negative (Neg); SARS CoV2 RNA(COVID-19) Ceph NEGATIVE (Negative)
[2025-09-22] MEDS: HYDROCORTISONE SOD SUCCINATE 100 MG/2 ML VIAL IV STA (08:50)
[2025-09-22 09:00] LABS: Immature Granulocytes # (auto) 0.72 K/uL (0.01-0.20); Immature Granulocytes % (auto) 3.7 %; Toxic Vacuolation 1+
[2025-09-22] MEDS ORDERED: metroNIDAZOLE 500 MG/100 ML BAG IV STA (09:15)
[2025-09-22] MEDS ORDERED: CHERRY SYRUP 5 ML UDP PO STA ×2 (09:15→10:53)
[2025-09-22] MEDS ORDERED: STAT IV Infusion **Titration per Protocol STA ×2 (09:15→13:48)
[2025-09-22] MEDS ORDERED: VANCOMYCIN HCL 500 MG/10 ML SOLN PO STA (09:15)
[2025-09-22] MEDS: metroNIDAZOLE 500 MG/100 ML BAG IV STA (09:26)
[2025-09-22] MEDS: NOREPINEPHRINE/D5W 4 MG/250 ML PLCT IV SCH (09:26)
--- NOTE | 2025-09-22 09:32 | History & Physical Report ---
Date of Service September 22, 2025 Assessment & Plan (1) Septic shock: (2) C. difficile colitis: (3) Acute hyponatremia: (4) Abdominal ascites: (5) Acute hypoxic respiratory failure: Plan 84 year old male presents with progressive weakness, diarrhea and shortness of breath. Diagnosed with c. diff as outpatient 2 days prior to admission, started Dificid day prior to admission. Took his usual medications including antihypertensives day of admission. #Septic shock / c. diff pancolitis Discussed with Dr Conte and Dr Uriarte on admission - surgical consult recommended and placed Secondary to c. diff pancolitis s/p 3L NSS with MAP, ongoing maintenance fluids per ICU Start Levophed, stop all antihypertensives, aim MAP > 65 Vancomycin 500mg PO q6h + Metronidazole 500mg IV q8h #Acute hypoxic respiratory failure / COPD (uncertain severity pending PFTs from recent pulm appointment) Baseline: 2LPM O2 at rest, 4LPM O2 on exertion Requiring 4LPM O2 at rest on admission with accessory muscle use and wheezing on exam - consider routine duonebs (deferred to ICU team) Likely exacerbation due to acute illness but also residual consolidation changes and pleural effusion from recent pneumonia - likely to get worse with IV fluids Aim O2 sats 88-92% Continue maintenance inhaler Incentive spirometry #Acute kidney injury No obstructive etiology on CT Suspect mostly pre-renal in setting of multiple anti-hypertensives but also likely some ATN with prolonged hypoperfusion and current infection Ledbetter catheter placed in ER for accurate I&Os #Acute hyponatremia Suspect from GI losses Repeat BMP after transfer to ICU Urine osm/Na pending #Metabolic acidosis with mixed normal and elevated anion gap (delta bicarb 11, delta anion gap 6) VBG pH 7.1 Lactate 3.2, repeat pending Repeat BMP and VBG with next lactate and consider bicarb drip if NAGMA still present #GERD / history of gastric ulcer (noted in chart) Continue pantoprazole Noted fluid in esophagus on CT - at risk of aspiration, consider SLT consult prior to feeding #HTN Stop all antihypertensives in septic shock #Depression Continue citalopram #Hypothyroidism No prior TSH on file but would not be unit support representative of normal thyroid state with acute illness VTE Prophylaxis - heparin 5000 units SQ BID Disposition - admit to ICU Admission and Anticipated Discharge Date Admission Date: September 22, 2025 History of Present Illness Chief Complaint: Progressive weakness Diarrhea Primary Care Provider: Silvestre Bee MD Darien Gallardo is an 84 year old male who presents to the ER with 6 days of fatigue, shortness of breath and watery diarrhea. He notes symptoms have got worse during that time and this morning he was too weak to get out of bed, appeared cold, clammy therefore EMS were called to bring him to the ER. During the course of the illness he contacted his PCP for something to slow down the diarrhea but recommended a stool sample first for c. diff which he completed on Friday and was subsequently positive. However his pharmacy didn't have Dificid in stock until yesterday when he first picked it up and took the first dose around 3pm. His diarrhea has improved since starting the Dificid and he has not had a bowel movement since coming to the ER. No nausea, vomiting or abdominal pain. He reports normal urination at home without any urinary symptoms. No fever but having intermittent chills. He has never previously had c. diff but was recently on ceftriaxone/cefuroxime + azithromycin at the end of July for a diagnosis of pneumonia. Of note he did have a rash over his entire body a week after this which cleared up in 4-5 days. Since his pneumonia diagnosis he has required 2-4LPM O2 but was on room air prior to this. Allergies Allergy/AdvReac Type Severity Reaction Status Date / Time pollen extracts Allergy Intermediate congestion Verified 09/09/25 08:57 Home Medications Medication Instructions Recorded Confirmed Type amlodipine 2.5 mg tablet (Norvasc) 2.5 mg PO BID 03/01/22 09/22/25 History atorvastatin 40 mg tablet (Lipitor) 40 mg PO QAM 03/01/22 09/22/25 History citalopram 20 mg tablet (Celexa) 20 mg PO QAM 03/01/22 09/22/25 History cyclosporine 0.05 % eye drops in a 1 drp OPB BID 03/01/22 09/22/25 History dropperette (Restasis) diphenhydramine HCl 25 mg capsule 25 mg PO DIRECTED PRN NEEDED 03/01/22 09/22/25 History (Benadryl) dutasteride 0.5 mg capsule 0.5 mg PO QAM 03/01/22 09/22/25 History levothyroxine 75 mcg capsule 75 mcg PO DAILYBB 03/01/22 09/22/25 History lisinopril 20 mg tablet 20 mg PO QAM 03/01/22 09/22/25 History lorazepam 0.5 mg tablet (Ativan) 0.5 mg PO Q8H PRN Anxiety 03/01/22 09/22/25 History iosjctvpslqz-lxnqekzu-tsizmb tablet 1 tab PO QAM 03/01/22 09/22/25 History pantoprazole 40 mg tablet,delayed 40 mg PO DAILY 03/01/22 09/22/25 History release (Protonix) tamsulosin 0.4 mg capsule (Flomax) 0.4 mg PO QAM 03/01/22 09/22/25 History acetaminophen 500 mg tablet 500 mg PO Q6H PRN PAIN/FEVER 08/24/25 09/22/25 History (Tylenol Extra Strength) fluorometholone acetate 0.1 % eye 1 drp OPB QAM 08/24/25 09/22/25 History drops,suspension (Flarex) peg 400-propylene glycol 0.4 %-0.3 1 drp OPB DIRECTED PRN Dry Eyes 08/24/25 09/22/25 History % eye drops (Systane (propylene glycol)) sildenafil 100 mg tablet 100 mg PO DAILY PRN Sexual Activity 08/24/25 09/22/25 History Anoro Ellipta 62.5 mcg-25 1 inh inhalation DAILY #60 ea 09/16/25 09/22/25 Rx mcg/actuation powder for inhalation (umeclidinium-vilanterol) Past Med/Surg History Problem List (Updated 09/22/25 @ 13:32 by Jay Owen MD) Acute hypoxic respiratory failure Septic shock Abdominal ascites (Acute) Hypocalcemia (Acute) Hypothermia (Acute) Pleural effusion (Acute) Acute hyponatremia (Acute) Acute hypotension (Acute) Acute dehydration (Acute) Acute renal failure (Acute) C. difficile colitis (Acute) Sepsis (Acute) Hypoxia (Acute) Pneumonia (Acute) COPD (chronic obstructive pulmonary disease) (Acute) PNA (pneumonia) NIKOLAY (iron deficiency anemia) (Chronic) Lung cancer (Chronic) "DIAGNOSIS: Metastatic lung cancer to the brain TREATMENT: 1. 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 Concurrent chemoradiation - 7200 cGy - 04/08/2011 followed by adjuvant chemotherapy which finished in 10/01/2011" Encounter for pre-operative examination DM II (diabetes mellitus, type II), controlled (Chronic) BPH (benign prostatic hyperplasia) (Chronic) HLD (hyperlipidemia) (Chronic) HTN (hypertension) (Chronic) Anxiety (Chronic) Roman's esophagus (Chronic) Gastric ulcer (Acute) resolved Medical History Hx of gastric ulcer Depression Hypothyroidism History of lung cancer DX 2010 - ON [place] TILL 2014 TREATMENT: 1. 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 Concurrent chemoradiation - 7200 cGy - 04/08/2011 followed by adjuvant chemotherapy which finished in 10/01/2011" History of Mohs micrographic surgery for skin cancer X2 History of skin cancer Dry eyes Acid reflux Surgical History H/O eye surgery Right Eye Descemet Membrane Endothelial Keratoplasty (DMEK) History of left cataract surgery History of right cataract surgery History of endoscopy History of hernia surgery History of colonoscopy Family History Grandfather Family history of diabetes mellitus Social History Smoking Status: Former smoker Tobacco Type: Cigarettes Age Started Using Tobacco: 19; Age Quit Using Tobacco: 49; packs per day: 1; Second Hand Exposure: No; Do You Dip or Chew Tobacco: No; Hx Alcohol Use: No Hx Substance Use: No Preferred Language: Lithuanian Communication Ability: Effective [employer] Education Teacher Required: No Beliefs That Will Affect Care: None Current Living Situation: Spouse Other Information That Helps Us Care for You: No Feels Safe at Home: Yes Safety Concerns: Feels Safe At This Time Assistive Devices: Cane and Glasses Review of Systems Review of Systems: All systems reviewed & are unremarkable except as noted in HPI & below Physical Exam Constitutional: well developed and well nourished; no acute distress Eyes: + anicteric sclerae; normal pupil size ENMT: Mouth: + dry oral mucous membranes Respiratory: + respiratory distress, + labored breath ing, + uses accessory muscles and able to speak in complete sentences; + abnormal respiratory effort, expiratory phase not prolonged and no stridor Auscultation: + wheezes (expiratory throughout); breath sounds present, no diminished lung sounds, no crackles and no rales Cardiovascular: Rate/Rhythm: regular rate and + irregularly irregular Heart Sounds: no murmur Extremities: + abnormal capillary refill (peripheral, normal central), no calf tenderness and no pedal edema Gastrointestinal (Abdomen): Inspection/Auscultation: + abdomen distended; + abdomen abnormal to inspection Percussion/Palpation: abdomen soft; abdomen nontender, no guarding and abdomen not rigid Skin: no rashes, warm and dry Neurologic: moves all extremities and awake; not confused Psychiatric: A+Ox3, euthymic affect Genitourinary: no CVA tenderness Results & Data Results & Data Vital Signs (Past 12 Hours) Vital Signs Temp Pulse Resp BP Pulse Ox O2 Del Method O2 Flow Rate 09/22/25 08:21 65 25 H 100 Nasal Cannula 4 09/22/25 08:20 79/41 L 09/22/25 08:20 79/41 L 09/22/25 08:20 79/41 L 09/22/25 08:20 79/41 L 09/22/25 08:18 67 23 78/39 L 100 09/22/25 08:15 78/39 L 09/22/25 08:12 73 11 L 100 09/22/25 08:11 97 Nasal Cannula 4 09/22/25 08:10 86/47 L 09/22/25 08:10 86/47 L 09/22/25 08:09 75 17 96 Nasal Cannula 4 09/22/25 08:05 75/39 L 09/22/25 08:02 98 Room Air 09/22/25 08:02 35.6 C L 70 25 H 72/43 L 99 Room Air 09/22/25 08:00 82/37 L 09/22/25 08:00 68 27 H 82/37 L 96 Nasal Cannula 4 09/22/25 07:55 76/40 L 09/22/25 07:54 69 25 H 100 Nasal Cannula 4 09/22/25 07:53 70 09/22/25 07:51 69 28 H 77/36 L 09/22/25 07:47 74/32 L 09/22/25 07:45 65 24 09/22/25 07:42 65 26 H 09/22/25 07:38 62/35 L Laboratory Results Abnormal lab results 09/22/25 Range/Units 07:50 WBC 19.31 H (4.8-10.8) K/ul RBC 3.37 L (4.70-6.10) M/uL Hgb 11.2 L (14.0-18.0) g/dL Hct 32.0 L (42.0-52.0) % RDW Std Deviation 53.1 H (36.4-46.3) fL RDW Coeff of Vanessa 15.0 H (11.5-14.5) % Neut # (Auto) 16.69 H (1.40-6.50) K/uL Lymph # (Auto) 0.32 L (1.20-3.40) K/uL [place] # (Auto) 1.53 H (0.11-0.59) K/uL Immature Gran # (Auto) 0.72 H (0.01-0.20) K/uL VBG pH 7.05 L (7.36-7.41) VBG pCO2 33 L (38-50) mmHg Sodium 121 L (136-145) mmol/L Chloride 94 L (98-107) mmol/L Carbon Dioxide 10 L (21-32) mmol/L Anion Gap 17 H (3-11) BUN 116 H (6-23) mg/dl Creatinine 6.40 H* (0.6-1.4) mg/dl Glucose 174 H (70-99(Fasting)) mg/dl Lactate 3.2 H* (0.4-2.0) mmol/L Calcium 7.3 L (8.6-10.3) mg/dl Alkaline Phosphatase 114 H (34-104) U/L Troponin I High Sens 49.1 H (0-20) pg/ml Total Protein 4.7 L (6.0-8.3) gm/dl Albumin 2.2 L (3.4-5.0) gm/dl Procalcitonin 5.51 H (0-0.5) ng/ml Urine Protein Trace H (Negative) Urine Ketones Trace H (Negative) Urine Bilirubin 1+ H (Negative) Ur Leukocyte Esterase 1+ H (Negative) Urine RBC (Auto) 11-20 H (0-2) /hpf U Hyaline Cast (Auto) >20 H (0-2) /lpf Urine Mucus Present A (None Prsent) Diagnostic Findings Radiograph of the Chest 1 View INDICATION: Sepsis TECHNIQUE: Frontal view of the chest. COMPARISON: 08/25/2025 FINDINGS: Lungs and pleural spaces: Increased small right pleural effusion and right basilar airspace consolidation. New coarse bandlike atelectasis noted in the left base and right Ravindra hilum. Improved right upper lobe infiltrate. No pneumothorax. Heart: Stable prominent shadow. Mediastinum: Normal contour. Bones/joints: No fracture, erosion or dislocation. Soft tissues: No abnormality noted. No radiopaque foreign body noted. Vasculature: Stable ectatic aorta. Upper abdomen: No abnormality noted. IMPRESSION: 1. New right basilar infiltrate concerning for pneumonia and increased small right pleural effusion. 2. Improved right upper lobe infiltrate. Radiograph of the Abdomen 1 View INDICATION: Sepsis. Diarrhea. TECHNIQUE: Frontal supine view of the abdomen/pelvis. COMPARISON: No relevant prior studies available. FINDINGS: Limitations: None. Lower thorax: Patchy basilar infiltrates noted. Gastrointestinal tract: Air scattered throughout non-dilated intestinal loops. Organs: Catheter projects over the urinary bladder. Bones/joints: No fracture, erosion or dislocation. Soft tissues: Edematous colonic loops noted with gasless rectum. IMPRESSION: Edematous colon most concerning for colitis. CT abdomen and pelvis recommended preferably with IV contrast. CT Chest Without Intravenous Contrast INDICATION: Sepsis. C. difficile colitis. Shortness of breath. TECHNIQUE: Axial computed tomography images of the chest without intravenous contrast. Sagittal and coronal reformatted images were created and reviewed. This CT exam was performed using one or more of the following dose reduction techniques: automated exposure control, adjustment of the mA and/or kV according to patient size, and/or use of iterative reconstruction technique. COMPARISON: 08/25/2025 t physical FINDINGS: Limitations: None. Lungs and pleural spaces: Increased small layering right pleural effusion with maximal thickness in the right posterior costophrenic sulcus of 5.2 cm. Stable trace left pleural effusion and thickening. No pneumothorax. Stable right upper lobe irregular segmental airway thickening and bronchiectasis. Increasing consolidation in the apical and posterior right upper lobe. Underlying ground glass infiltrate is improved. There is increased dependent atelectasis in the lower lobes. Heart: Stable enlargement. There is some iatrogenically introduced air in the right ventricle which is not an atypical finding. Mediastinum: The soft distal half of the esophagus is distended with fluid and mildly thickened. Thyroid: No abnormality noted. Bones/joints: No acute changes. Soft tissues: No acute abnormality noted. Vasculature: No abnormality noted. No thoracic aortic aneurysm. Lymph nodes: No enlarged lymph nodes. Intraperitoneal space: Free fluid noted in the upper abdomen. No free air in the upper abdomen. IMPRESSION: 1. Increased right pleural effusion. 2. Increased consolidation in the right upper lobe with stable irregular segmental upper lobe airway thickening. 3. Distended, thickened esophagus with fluid. 4. Free fluid noted in the upper abdomen. CT Abdomen and Pelvis Without Intravenous Contrast INDICATION: C. difficile colitis. Acute renal failure. Sepsis. TECHNIQUE: Axial computed tomography images of the abdomen and pelvis without intravenous contrast. Sagittal and coronal reformatted images were created and reviewed. This CT exam was performed using one or more of the following dose reduction techniques: automated exposure control, adjustment of the mA and/or kV according to patient size, and/or use of iterative reconstruction technique. COMPARISON: No relevant prior studies available. FINDINGS: Limitations: None. Lung bases: See separately dictated chest CT report. ABDOMEN: Liver: Lack of intravenous contrast limits detection of some masses. No abnormality noted. Gallbladder and bile ducts: No calcified stones or surrounding fluid. No ductal dilation. Pancreas: No pancreatic mass, calcification, inflammation or ductal dilation noted. Spleen: No acute abnormality noted. Adrenals: No acute abnormality noted. Kidneys and ureters: Simple bilateral renal cysts noted. No follow-up necessary. No stones or hydronephrosis. Stomach and bowel: There is moderate thickening and inflammation of the entire colon. There is thickening of distal small bowel loops. No small bowel obstruction. No visible pneumatosis. PELVIS: Appendix: The appendix is not distinctly defined. Bladder: Catheter balloon inflated in the urinary bladder which is collapsed and not optimally assessed. No stone noted. Reproductive: No abnormalities noted. ABDOMEN and PELVIS: Intraperitoneal space: Small amounts of free fluid in the abdomen and pelvis. No free air. No loculated collection. Bones/joints: Degenerative changes noted throughout the spine. No acute osseous abnormality seen. Soft tissues: No acute abnormality noted. Vasculature: Atherosclerotic calcification of the aorta and branches. No aneurysm. Lymph nodes: No pathologically enlarged lymph nodes. IMPRESSION: 1. Moderate to severe pancolitis with probable backwash ileitis. 2. Mild ascites without abscess. Medications Administered ER Medications Given: Normal saline 1000ml bolus x3 Zosyn 4.5g IV Hydrocortisone 200mg IV ECG Rate (beats per minute): 90 Rhythm: junctional Findings: no acute ischemic change Comparison ECG Date: from (August 24, 2025) Change: the following changes noted (Junctional rhythm replaced sinus, intermittent p waves on monitor) Code Status & VTE Plan Code Status DNR/DNI VTE Prophylaxis Plan VTE Prophylaxis will be ordered: Yes Critical Care Time Critical Care Time: Yes Total Critical Care Time: 40 PG Care Time/CCT Total # of Minutes Spent Total Time Spent with Patient: Total time spent is greater than 50% in coordination of care (as documented) at patient's floor/unit and/or counseling patient: Critical Care Time: Yes Total Critical Care Time: 40 Coding Level of Care Code 29440 INT INP/OBS CARE 3/75MIN Diagnoses Septic shock A41.9; R65.21 C. difficile colitis A04.72 Acute hyponatremia E87.1 Abdominal ascites R18.8 Acute hypoxic respiratory failure J96.01 Additional Codes Critical Care Time - Critical Care Time: Yes ([id number])
--- NOTE | 2025-09-22 09:35 | CT Scan Report ---
EXAM: CT Abdomen and Pelvis Without Intravenous Contrast INDICATION: C. difficile colitis. Acute renal failure. Sepsis. TECHNIQUE: Axial computed tomography images of the abdomen and pelvis without intravenous contrast. Sagittal and coronal reformatted images were created and reviewed. This CT exam was performed using one or more of the following dose reduction techniques: automated exposure control, adjustment of the mA and/or kV according to patient size, and/or use of iterative reconstruction technique. COMPARISON: No relevant prior studies available. FINDINGS: Limitations: None. Lung bases: See separately dictated chest CT report. ABDOMEN: Liver: Lack of intravenous contrast limits detection of some masses. No abnormality noted. Gallbladder and bile ducts: No calcified stones or surrounding fluid. No ductal dilation. Pancreas: No pancreatic mass, calcification, inflammation or ductal dilation noted. Spleen: No acute abnormality noted. Adrenals: No acute abnormality noted. Kidneys and ureters: Simple bilateral renal cysts noted. No follow-up necessary. No stones or hydronephrosis. Stomach and bowel: There is moderate thickening and inflammation of the entire colon. There is thickening of distal small bowel loops. No small bowel obstruction. No visible pneumatosis. PELVIS: Appendix: The appendix is not distinctly defined. Bladder: Catheter balloon inflated in the urinary bladder which is collapsed and not optimally assessed. No stone noted. Reproductive: No abnormalities noted. ABDOMEN and PELVIS: Intraperitoneal space: Small amounts of free fluid in the abdomen and pelvis. No free air. No loculated collection. Bones/joints: Degenerative changes noted throughout the spine. No acute osseous abnormality seen. Soft tissues: No acute abnormality noted. Vasculature: Atherosclerotic calcification of the aorta and branches. No aneurysm. Lymph nodes: No pathologically enlarged lymph nodes. IMPRESSION: 1. Moderate to severe pancolitis with probable backwash ileitis. 2. Mild ascites without abscess. ACT 112: N/A Electronically signed by Merari Arana 09-22-2025 09:34 AM
[2025-09-22] MEDS: VANCOMYCIN HCL 250 MG CAP PO ONE (10:02)
--- NOTE | 2025-09-22 10:17 | Electrocardiogram Report ---
Test Reason : Blood Pressure : */* mmHG Vent. Rate : 73 BPM Atrial Rate : 111 BPM P-R Int : * ms QRS Dur : 96 ms QT Int : 404 ms P-R-T Axes : * 93 127 degrees QTcB Int : 445 ms Probable Normal sinus rhythm Rightward axis Nonspecific ST abnormality Abnormal ECG When compared with ECG of 24-Aug-2025 15:24, QRS voltage has decreased ST now depressed in Lateral leads T wave inversion no longer evident in Inferior leads Confirmed by Lazaro Cali ([id number]) on 09/22/2025 10:17:15 AM Referred By: Confirmed By: Lazaro Cali
--- NOTE | 2025-09-22 10:18 | Electrocardiogram Report ---
Test Reason : Blood Pressure : */* mmHG Vent. Rate : 70 BPM Atrial Rate : 68 BPM P-R Int : * ms QRS Dur : 94 ms QT Int : 422 ms P-R-T Axes : * 42 55 degrees QTcB Int : 455 ms Poor data quality, interpretation may be adversely affected Undetermined rhythm Otherwise normal ECG When compared with ECG of 22-Sep-2025 07:33, (unconfirmed) Current undetermined rhythm precludes rhythm comparison, needs review ST elevation has replaced ST depression in Lateral leads Confirmed by Lazaro Cali ([id number]) on 09/22/2025 10:18:26 AM Referred By: REFERRED SELF Confirmed By: Lazaro Cali
[2025-09-22 11:20] LABS: Base Excess VBG -19.9 mEq/L; HCO3 VBG 8 mmol/L; Oxygen Saturation VBG < 60.0 %; PCO2 VBG 27 mmHg (38-50); PO2 VBG 33 mmHg; pH VBG 7.10 (7.36-7.41)
[2025-09-22 11:41] LABS: Anion Gap 15.0 (3-11); Blood Urea Nitrogen 110.0 mg/dl (6-23); Calcium 7.2 mg/dl (8.6-10.3); Carbon Dioxide 10.0 mmol/L (21-32); Chloride 97.0 mmol/L (98-107); Creatinine Clr Calc Pharmacy 8.2 ml/min; Glucose 168.0 mg/dl (70-99(Fasting)); Potassium 4.7 mmol/L (3.5-5.1); Sodium 122.0 mmol/L (136-145)
--- NOTE | 2025-09-22 11:41 | Surgery Consultation ---
Date of Consultation September 22, 2025 Assessment & Plan (1) C. difficile colitis: agree with ICU agree with supportive care po/rectal vanc per ICU team surgical intervention only for perfortion/intractability/signs of ischemia History of Present Illness Attending Physician: Jay Owen MD History of Present Illness This is an 84-year-old female admitted to the ED with complaints of general weakness shortness of breath and significant diarrhea. He had an outpatient test which showed positive for C. difficile. He denies any nausea or vomiting and has minimal abdominal pain. He was admitted with a septic picture and is in the ICU. A CT scan shows likely pancolitis. Allergies Allergy/AdvReac Type Severity Reaction Status Date / Time pollen extracts Allergy Intermediate congestion Verified 09/09/25 08:57 Home Medications Medication Instructions Recorded Confirmed Type amlodipine 2.5 mg tablet (Norvasc) 2.5 mg PO BID 03/01/22 09/22/25 History atorvastatin 40 mg tablet (Lipitor) 40 mg PO QAM 03/01/22 09/22/25 History citalopram 20 mg tablet (Celexa) 20 mg PO QAM 03/01/22 09/22/25 History cyclosporine 0.05 % eye drops in a 1 drp OPB BID 03/01/22 09/22/25 History dropperette (Restasis) diphenhydramine HCl 25 mg capsule 25 mg PO DIRECTED PRN NEEDED 03/01/22 09/22/25 History (Benadryl) dutasteride 0.5 mg capsule 0.5 mg PO QAM 03/01/22 09/22/25 History levothyroxine 75 mcg capsule 75 mcg PO DAILYBB 03/01/22 09/22/25 History lisinopril 20 mg tablet 20 mg PO QAM 03/01/22 09/22/25 History lorazepam 0.5 mg tablet (Ativan) 0.5 mg PO Q8H PRN Anxiety 03/01/22 09/22/25 History aopvcyldnzaf-gsyqqstw-xzkbfz tablet 1 tab PO QAM 03/01/22 09/22/25 History pantoprazole 40 mg tablet,delayed 40 mg PO DAILY 03/01/22 09/22/25 History release (Protonix) tamsulosin 0.4 mg capsule (Flomax) 0.4 mg PO QAM 03/01/22 09/22/25 History acetaminophen 500 mg tablet 500 mg PO Q6H PRN PAIN/FEVER 08/24/25 09/22/25 History (Tylenol Extra Strength) fluorometholone acetate 0.1 % eye 1 drp OPB QAM 08/24/25 09/22/25 History drops,suspension (Flarex) peg 400-propylene glycol 0.4 %-0.3 1 drp OPB DIRECTED PRN Dry Eyes 08/24/25 09/22/25 History % eye drops (Systane (propylene glycol)) sildenafil 100 mg tablet 100 mg PO DAILY PRN Sexual Activity 08/24/25 09/22/25 History Anoro Ellipta 62.5 mcg- 1 inh inhalation DAILY #60 ea 09/16/25 09/22/25 Rx mcg/actuation powder for inhalation (umeclidinium-vilanterol) Patient History Medical History Hx of gastric ulcer Depression Hypothyroidism History of lung cancer DX 2010 - ON [place] TILL 2014 TREATMENT: 1. 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 Concurrent chemoradiation - 7200 cGy - 04/08/2011 followed by adjuvant chemotherapy which finished in 10/01/2011" History of Mohs micrographic surgery for skin cancer X2 History of skin cancer Dry eyes Acid reflux Surgical History H/O eye surgery Right Eye Descemet Membrane Endothelial Keratoplasty (DMEK) History of left cataract surgery History of right cataract surgery History of endoscopy History of hernia surgery History of colonoscopy Family History Grandfather Family history of diabetes mellitus Social History Smoking Status: Never smoker Tobacco Type: Cigarettes Age Started Using Tobacco: 19; Age Quit Using Tobacco: 49; packs per day: 1; Second Hand Exposure: No; Do You Dip or Chew Tobacco: No; Hx Alcohol Use: No Hx Substance Use: No Preferred Language: Romanian Communication Ability: Effective Tail Dogger Required: No Beliefs That Will Affect Care: None Current Living Situation: Spouse Feels Safe at Home: Yes Assistive Devices: None Review of Systems Constitutional: no fever and no chills Eyes: no problem reported Ear, Nose, Mouth, Throat: no problem reported Respiratory: no cough and no dyspnea Cardiovascular: no chest pain Gastrointestinal: + abdominal pain (mild) and + diarrhea/l oose stools; no nausea and no vomiting Genitourinary: no dysuria Neurologic: + generalized weakness; no localized wea kness Psychiatric: no behavioral changes Hematologic / Lymphatic: no easy bleeding and no easy bruising Physical Exam Constitutional: WD/WN, vitals as above Eyes: no scleral abnormality Respiratory: normal respiratory effort, lungs clear to auscultation Cardiovascular: Rate/Rhythm: + tachycardic Gastrointestinal (Abdomen): Inspection/Auscultation: abdomen normal to inspection and + abdomen distended; + abnormal bowel sounds Perc ussion/Palpation: + abdomen tender and abdomen soft; no guarding and abdomen not rigid Musculoskeletal: Head/Neck/Chest: normocephalic and head atraumatic Skin: no rashes, warm and dry Psychiatric: Orientation: alert Results & Data Vital Signs (Past 12 Hours) Vital Signs Temp Pulse Resp BP Pulse Ox O2 Del Method O2 Flow Rate 09/22/25 09:56 35.7 C L 84 24 99/48 L 98 Room Air 09/22/25 09:45 77 24 104/44 L 99 Nasal Cannula 4 09/22/25 09:42 69 26 H 91 Nasal Cannula 4 09/22/25 09:40 87/40 L 09/22/25 09:39 70 20 90 Nasal Cannula 4 09/22/25 09:35 80/38 L 09/22/25 09:35 80/38 L 09/22/25 09:35 80/38 L 09/22/25 09:30 62 19 80/36 L 95 Nasal Cannula 4 09/22/25 09:25 81/44 L 09/22/25 09:25 81/44 L 09/22/25 09:24 64 22 90 Nasal Cannula 4 09/22/25 09:21 65 21 96 Nasal Cannula 4 09/22/25 09:20 77/37 L 09/22/25 09:18 66 23 96 Nasal Cannula 4 09/22/25 09:15 66 22 79/36 L 96 Nasal Cannula 4 09/22/25 09:15 79/36 L 09/22/25 09:12 64 24 96 Nasal Cannula 4 09/22/25 09:11 82/41 L 09/22/25 09:09 92 Nasal Cannula 4 09/22/25 08:51 63 21 95 Nasal Cannula 4 09/22/25 08:50 75/35 L 09/22/25 08:48 60 21 96 Nasal Cannula 4 09/22/25 08:45 66 22 76/39 L 100 Nasal Cannula 4 09/22/25 08:21 65 25 H 100 Nasal Cannula 4 09/22/25 08:20 79/41 L 09/22/25 08:20 79/41 L 09/22/25 08:20 79/41 L 09/22/25 08:20 79/41 L 09/22/25 08:18 67 23 78/39 L 100 09/22/25 08:15 78/39 L 09/22/25 08:12 73 11 L 100 09/22/25 08:11 97 Nasal Cannula 4 09/22/25 08:10 86/47 L 09/22/25 08:10 86/47 L 09/22/25 08:09 75 17 96 Nasal Cannula 4 09/22/25 08:05 75/39 L 09/22/25 08:02 98 Room Air 09/22/25 08:02 35.6 C L 70 25 H 72/43 L 99 Room Air 09/22/25 08:00 82/37 L 09/22/25 08:00 68 27 H 82/37 L 96 Nasal Cannula 4 09/22/25 07:55 76/40 L 09/22/25 07:54 69 25 H 100 Nasal Cannula 4 09/22/25 07:53 70 09/22/25 07:51 69 28 H 77/36 L 09/22/25 07:47 74/32 L 09/22/25 07:45 65 24 09/22/25 07:42 65 26 H 09/22/25 07:38 62/35 L
[2025-09-22] MEDS ORDERED: STAT IV/IM STA (12:30)
--- NOTE | 2025-09-22 12:42 | XRay Report ---
EXAM: Radiograph of the Chest 1 View INDICATION: Line placement TECHNIQUE: Frontal view of the chest. Image obtained at 12:19 PM COMPARISON: CT chest earlier the same day FINDINGS: Lungs and pleural spaces: Small subpulmonic right pleural effusion. Stable basilar airspace consolidation. Heart: Shape and configuration within normal limits allowing for technique. Mediastinum: Normal contour. Bones/joints: Degenerative changes noted throughout the spine. No acute osseous abnormality seen. Soft tissues: No abnormality noted. No radiopaque foreign body noted. Tubes, lines and devices: Left internal jugular central venous line has been placed. As it enters the SVC it courses cranially and terminates in the proximal SVC. Upper abdomen: No abnormality noted. IMPRESSION: 1. Left internal jugular central venous line has been placed. As it enters the SVC it courses cranially and terminates in the proximal SVC. 2. Stable pulmonary infiltrates and pleural effusion. ACT 112: N/A Electronically signed by Merari Arana 09-22-2025 12:41 PM
[2025-09-22] MEDS ORDERED: PIPERACILLIN/TAZOBACTAM 4.5 GM/100 ML BAG IV SCH (12:45)
[2025-09-22] MEDS: LACTATED RINGER'S 1,000 ML IV ONE (13:00)
[2025-09-22] MEDS ORDERED: ALBUT/IPRATROP 3MG/0.5MG NEB 3 ML VIAL NEB PRN (13:02)
[2025-09-22] MEDS ORDERED: ARTIFICIAL TEARS OP OINT 3.5 GM TUBE OPB PRN (13:12)
[2025-09-22] MEDS: SODIUM BICARBONATE 8.4% 150 MEQ in WATER, STERILE 1,000 ML IV SCH (13:34)
[2025-09-22] MEDS ORDERED: Nursing to Pharmacy Communication SCH ×3 (13:45→16:00)
--- NOTE | 2025-09-22 13:46 | XRay Report ---
EXAM: Radiograph of the Chest 1 View INDICATION: Line placement. TECHNIQUE: Frontal view of the chest. Image obtained at 1:05 PM COMPARISON: Image approximately 1 hour earlier. FINDINGS: Lungs and pleural spaces: Shallow inspiration with stable coarse infiltrates in both lungs. Small right pleural effusion layers posteriorly. No pneumothorax. Heart: Shape and configuration within normal limits allowing for technique. Mediastinum: Normal contour. Bones/joints: No fracture, erosion or dislocation. Soft tissues: No abnormality noted. No radiopaque foreign body noted. Tubes, lines and devices: Left internal jugular catheter again noted. Tip at the brachiocephalic caval junction. Upper abdomen: No abnormality noted. IMPRESSION: 1. Central line as above. 2. Grossly stable airspace disease and small right pleural effusion. ACT 112: N/A Electronically signed by Merari Arana 09-22-2025 13:45 PM
[2025-09-22] MEDS: HYDROCORTISONE SOD 50 MG in SYRINGE 0 ML IV SCH (14:41)
[2025-09-22] MEDS: VASOPRESSIN 20 UNITS in SODIUM CHLORIDE 0.9% 100 ML IV SCH (14:41)
[2025-09-22 15:12] LABS: Anion Gap 16.0 (3-11); Blood Urea Nitrogen 109.0 mg/dl (6-23); Calcium 7.1 mg/dl (8.6-10.3); Carbon Dioxide 8.0 mmol/L (21-32); Chloride 98.0 mmol/L (98-107); Creatinine Clr Calc Pharmacy 9.5 ml/min; Glucose 191.0 mg/dl (70-99(Fasting)); Potassium 5.0 mmol/L (3.5-5.1); Sodium 122.0 mmol/L (136-145)
[2025-09-22 15:25] LABS: iSTAT Art Bld Gas Base Excess -21.0 mmol/L (-9-1.8); iSTAT Art Bld Gas pCO2 Correct 20 mmHg (35-46); iSTAT Art Bld Gas pH Corrected 7.177 (7.35-7.45); iSTAT Arterial Blood Gas pO2 C 67
--- NOTE | 2025-09-22 15:26 | Critical Care Consultation ---
Date of Consultation September 22, 2025 Assessment & Plan (1) Septic shock: (2) Pancolitis: (3) C. 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 He was treated with Rocephin and Zithromax (completed 5 days) and discharged with cefuroxime to complete 5 days. The patient was also discharged at that time with oxygen and followed up with his bridge expert. The patient had developed diarrhea in the outpatient setting and was diagnosed with C. difficile in the outpatient setting approximately 2 days prior to presenting to our facility and started on Dificid which he believes helped his symptoms and his diarrhea started slowing down. Today the patient had worsening weakness and shortness of breath. He took all of his home medications as prescribed including his antihypertensives prior to presenting to the hospital. On presentation he was hypoxic with a saturation of 84%. Abdomen was distended but not tender. The patient was significantly hypotensive and was administered 3 L of crystalloid fluid resuscitation with minimal improvement in his blood pressure therefore norepinephrine was started peripherally and he received 200 mg of hydrocortisone. Admission labs were significant for acute renal failure, severe metabolic acidosis, leukocytosis, hyponatremia and lactic acidosis. Imaging of the chest abdomen pelvis showed a right sided pneumonia, right pleural effusion, fluid filled esophagus. Pancolitis with ascites, no abscess or free air was appreciated. Reason Critically Ill: Refractory shock with multiorgan dysfunction, likely septic Pancolitis with C. difficile Acute renal failure Anion gap metabolic acidosis with lactic acidosis Hyponatremia Hypoxic respiratory failure Pneumonia Pleural effusion Neuro: Awake and alert, no deficits at this time. Cardiac: Refractory shock with multiorgan dysfunction [id number] ultrasound showing hyperdynamic LV, grossly preserved EF. IVC dilated. Received 200 hydrocortisone in ER on arrival. Status post 4 L crystalloid for volume resuscitation. Central venous catheter and left IJ (09/22/2025) Right radial arterial line and left radial artery (09/22/2025) Will continue hydrocortisone 50 mg every 6 hours Received crystalloid resuscitation, most recent 1 L bolus did not improve blood pressure or hemodynamics. Continue norepinephrine, vasopressin, may require a third pressor soon. Respiratory: Acute on chronic hypoxic respiratory failure Pleural effusion Underlying COPD Pneumonia versus atelectasis on CT imaging [id number] ultrasound showing B-lines bilaterally, small effusion on the right. Continue oxygen, goal saturation approximately 90%. Indigo Will add Rocephin to cover for pneumonia given refractory shock, I reviewed the CT, looks more like atelectasis and fluid in the fissure. GI: Pancolitis with C. difficile Ascites Recent C. difficile infection treated outpatient, CT showing pancolitis, also distal small bowel affected, ascites is present. Receiving IV Flagyl, p.o. and IA vancomycin. General Surgery consulted, they are following, no immediate indication for surgery. Will monitor with serial abdominal exams. If patient has worsening abdominal pain or rapid deterioration he may require repeat imaging of the abdomen. RENAL/LYTES: Acute renal failure Hyponatremia Anion gap metabolic acidosis with lactic acidosis Received crystalloid resuscitation with normal saline and LR, sodium remains low in the low 120s. Urine output has not picked up after fluid resuscitation and vasopressor support. Metabolic acidosis is worsening, most recent bicarbonate is 8. Did respond to bicarb pushes. Remains on a bicarb infusion. CT abdomen did not show evidence of hydronephrosis. Keep Ledbetter catheter in place. Nephrology is consulted. They will see him tonight, possible HD this evening versus transfer out for CRRT. : Ledbetter catheter in place. Negligible urine output at this time. ENDO: Type 2 diabetes Hypothyroidism Monitor blood glucose. Acceptable at this time. May require sliding scale given underlying diabetes and steroid dosing. On Synthroid. On stress dose steroids with hydrocortisone. HEME: Leukocytosis, anemia CBC daily. No evidence of DIC at this time. ID: C. difficile infection with pancolitis Pneumonia Continue Flagyl IV, p.o. and IA vancomycin Rocephin to cover for pneumonia Feeding: NPO Fluids: bicab with water Analgesia: none Activity: bedrest Thromboprophylaxis: heparin Ulcer prophylaxis: pantoprazole Glycemic control: none at this time, may require SSI Bowels: None Indwelling catheters: Ledbetter, Dobbhoff nasogastric feeding tube, FMS, left IJ central venous catheter (inserted 09/22/2025), left radial arterial line (inserted 09/22/2025) Antibiotics: Flagyl IV, p.o. and IA vancomycin, Rocephin Plan: Patient will remain in the ICU. Remains in critical condition with multiorgan dysfunction. On multiple pressors and stress dose steroids. Acidosis is worsening. Receiving intermittent bicarb pushes which seem to help with his blood pressure. Nephrology has been consulted this afternoon, possible HD session this evening versus transfer out for CRRT. General surgery has been consulted, we will do serial abdominal exams. If abdominal pain develops or conditions worsen he may need a repeat CT abdomen. Family has been at bedside, sister and the patient's . Patient is awake and alert, we had a long discussion, he does not want to be ventilated or have CPR/defibrillation. He is however willing to reverse his CODE STATUS if he had to go to the operating room for a lifesaving procedure. He is also willing to try dialysis if this is indicated. He understands that his kidneys may not recover and he may need long-term dialysis. Patient and family would prefer to stay at this facility but are willing to transfer as well if needed for his health care. Case was discussed at bedside with patient and family, nursing staff, consulting providers. I have personally spent 74 minutes of critical care time in the direct management of this patient. This is a life/limb threatening event. This includes time spent evaluating patient, direct bedside care, chart review, placing orders, interpretation of diagnostic studies, discussion with consultants, patient, and family members, as well as other required patient management activities. This time is exclusive of all separately billable procedures, and teaching time and separate from and in addition to any other critical care service time. 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 He was treated with Rocephin and Zithromax (completed 5 days) and discharged with cefuroxime to complete 5 days. The patient was also discharged at that time with oxygen and followed up with his bridge expert. The patient had developed diarrhea in the outpatient setting and was diagnosed with C. difficile in the outpatient setting approximately 2 days prior to presenting to our facility and started on Dificid which he believes helped his symptoms and his diarrhea started slowing down. Today the patient had worsening weakness and shortness of breath. He took all of his home medications as prescribed including his antihypertensives prior to presenting to the hospital. On presentation he was hypoxic with a saturation of 84%. Abdomen was distended but not tender. The patient was significantly hypotensive and was administered 3 L of crystalloid fluid resuscitation with minimal improvement in his blood pressure therefore norepinephrine was started peripherally and he received 200 mg of hydrocortisone. Admission labs showed WBC of 19, hemoglobin 11.2, platelets 396, VBG with a pH of 7.10, sodium 122, chloride 97, potassium 4.7, bicarb of 10, anion gap 15, BUN 110, creatinine 6.40 (baseline creatinine about 1.2), glucose was 168, yvrose cium 7.2, troponin was mildly elevated but trended down. AST and ALT were normal. Procalcitonin was 5.51. Ledbetter catheter was placed, urine was dark, leukocyte Estrace was positive and WBCs were present, no bacteria seen. MRSA nares was negative. BioFire was negative. Imaging of the chest with x-ray was obtained which showed a new right basilar infiltrate concerning for pneumonia and increased small right pleural effusion. Right upper lobe infiltrate had improved. KUB showed edematous colon most concerning for colitis. The patient was taken for CT imaging of chest abdomen pelvis. CT of the chest showed increased right pleural effusion, consolidation in the right upper lobe, and distended and thickened esophagus that was fluid- filled, free fluid is noted in the upper abdomen. CT abdomen pelvis showed thickening and inflammation of the entire colon and distal small bowel loops concerning for pancolitis with ileitis, mild ascites. No free air was appreciated. No fluid collection appreciated. When examined the patient in emergency department the hospitalist is at bedside. Family is also present, the patient sister and are present. Patient is awake, alert and oriented. He endorses shortness of breath. He denies any abdominal pain but has noticed that his abdomen has gotten progressively more swollen over the past day. Says that he was peeing okay at home. On exam breath sounds are coarse and diminished. Abdomen is significantly distended, I do not appreciate bruising or tenderness when I palpate. No rebound tenderness. CODE STATUS was discussed in detail with the patient and family at bedside. The patient states that this is something they have discussed in the past, he would not want heroic measures including intubation or mechanical ventilation. He would not want defibrillation or CPR. The patient states that he would be agreeable to reverse a DNR status if he had to go to the operating room if it was a life saving procedure. He is okay with ICU admission and therapy such as vasopressor support and invasive monitoring. Allergies Allergy/AdvReac Type Severity Reaction Status Date / Time pollen extracts Allergy Intermediate congestion Verified 09/09/25 08:57 Home Medications Medication Instructions Recorded Confirmed Type amlodipine 2.5 mg tablet (Norvasc) 2.5 mg PO BID 03/01/22 09/22/25 History atorvastatin 40 mg tablet (Lipitor) 40 mg PO QAM 03/01/22 09/22/25 History citalopram 20 mg tablet (Celexa) 20 mg PO QAM 03/01/22 09/22/25 History cyclosporine 0.05 % eye drops in a 1 drp OPB BID 03/01/22 09/22/25 History dropperette (Restasis) diphenhydramine HCl 25 mg capsule 25 mg PO DIRECTED PRN NEEDED 03/01/22 09/22/25 History (Benadryl) dutasteride 0.5 mg capsule 0.5 mg PO QAM 03/01/22 09/22/25 History levothyroxine 75 mcg capsule 75 mcg PO DAILYBB 03/01/22 09/22/25 History lisinopril 20 mg tablet 20 mg PO QAM 03/01/22 09/22/25 History lorazepam 0.5 mg tablet (Ativan) 0.5 mg PO Q8H PRN Anxiety 03/01/22 09/22/25 History zjoqgndqwzpd-egylhpdn-knjyfe tablet 1 tab PO QAM 03/01/22 09/22/25 History pantoprazole 40 mg tablet,delayed 40 mg PO DAILY 03/01/22 09/22/25 History release (Protonix) tamsulosin 0.4 mg capsule (Flomax) 0.4 mg PO QAM 03/01/22 09/22/25 History acetaminophen 500 mg tablet 500 mg PO Q6H PRN PAIN/FEVER 08/24/25 09/22/25 History (Tylenol Extra Strength) fluorometholone acetate 0.1 % eye 1 drp OPB QAM 08/24/25 09/22/25 History drops,suspension (Flarex) peg 400-propylene glycol 0.4 %-0.3 1 drp OPB DIRECTED PRN Dry Eyes 08/24/25 09/22/25 History % eye drops (Systane (propylene glycol)) sildenafil 100 mg tablet 100 mg PO DAILY PRN Sexual Activity 08/24/25 09/22/25 History Anoro Ellipta 62.5 mcg-25 1 inh inhalation DAILY #60 ea 09/16/25 09/22/25 Rx mcg/actuation powder for inhalation (umeclidinium-vilanterol) Patient History Medical History Hx of gastric ulcer Depression Hypothyroidism History of lung cancer DX 2010 - ON [place] TILL 2014 TREATMENT: 1. 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 Concurrent chemoradiation - 7200 cGy - 04/08/2011 followed by adjuvant chemotherapy which finished in 10/01/2011" History of Mohs micrographic surgery for skin cancer X2 History of skin cancer Dry eyes Acid reflux Surgical History H/O eye surgery Right Eye Descemet Membrane Endothelial Keratoplasty (DMEK) History of left cataract surgery History of right cataract surgery History of endoscopy History of hernia surgery History of colonoscopy Family History Grandfather Family history of diabetes mellitus Social History Smoking Status: Former smoker Tobacco Type: Cigarettes Age Started Using Tobacco: 19; Age Quit Using Tobacco: 49; packs per day: 1; Second Hand Exposure: No; Do You Dip or Chew Tobacco: No; Hx Alcohol Use: No Hx Substance Use: No Preferred Language: Japanese Communication Ability: Effective X Ray Service Technician Required: No Beliefs That Will Affect Care: None Current Living Situation: Spouse Other Information That Helps Us Care for You: No Feels Safe at Home: Yes Safety Concerns: Feels Safe At This Time Assistive Devices: Cane and Glasses Review of Systems Review of Systems: Negative except as in HPI. Physical Exam Physical Exam: Physical examination: General: Appears ill, resting in bed, on nasal cannula, moderate distress. HEENT: Mucous membranes are dry. Sclera are nonicteric. Extraocular movements intact. No JVD appreciated. Skin: Warm and dry. No jaundice or bruising appreciated. Cardiovascular: Tachycardia present, no murmurs appreciated, on norepinephrine running peripherally. Lungs: Mildly tachypneic, on nasal cannula, coarse breath sounds with crackles. Abdomen: Significantly distended and protuberant. No tenderness to deep palpation. No bruising. Musculoskeletal: Normal muscle mass and tone. No gross joint deformity abnormalities. No effusions appreciated. Neurologic: Awake and alert, oriented. CN II through XII are grossly intact. Speech is fluent. Nonfocal exam. Psychiatric: Appropriate cooperative during my exam. Results & Data Results & Data Vital Signs (Past 12 Hours) Vital Signs Temp Pulse Resp BP Pulse Ox Pulse Ox O2 Del Method 09/22/25 13:30 35.2 C L 83 21 97 09/22/25 13:15 34.6 C L 91 H 24 100 09/22/25 13:00 35.2 C L 90 19 97 09/22/25 12:45 34.6 C L 89 23 98 09/22/25 12:30 35.1 C L 90 23 99 09/22/25 12:15 34.6 C L 88 24 97 09/22/25 12:00 34.5 C L 83 24 97 09/22/25 11:45 101/47 L 09/22/25 11:45 101/47 L 09/22/25 11:45 101/47 L 09/22/25 11:45 101/47 L 09/22/25 11:45 101/47 L 09/22/25 11:45 35.0 C L 87 26 H 100 09/22/25 11:33 35.2 C L 88 26 H 95 09/22/25 11:33 112/45 L 09/22/25 11:33 112/45 L 09/22/25 11:33 112/45 L 09/22/25 11:33 112/45 L 09/22/25 11:33 112/45 L 09/22/25 11:30 90 25 H 97 09/22/25 11:00 91 H 22 100 09/22/25 11:00 92/43 L 09/22/25 11:00 92/43 L 09/22/25 11:00 92/43 L 09/22/25 11:00 92/43 L 09/22/25 10:53 99 09/22/25 10:15 Nasal Cannula 09/22/25 10:15 36.0 C L 24 99 Nasal Cannula 09/22/25 09:56 35.7 C L 84 24 99/48 L 98 Room Air 09/22/25 09:45 77 24 104/44 L 99 Nasal Cannula 09/22/25 09:42 69 26 H 91 Nasal Cannula 09/22/25 09:40 87/40 L 09/22/25 09:39 70 20 90 Nasal Cannula 09/22/25 09:35 80/38 L 09/22/25 09:35 80/38 L 09/22/25 09:35 80/38 L 09/22/25 09:30 62 19 80/36 L 95 Nasal Cannula 09/22/25 09:25 81/44 L 09/22/25 09:25 81/44 L 09/22/25 09:24 64 22 90 Nasal Cannula 09/22/25 09:21 65 21 96 Nasal Cannula 09/22/25 09:20 77/37 L 09/22/25 09:18 66 23 96 Nasal Cannula 09/22/25 09:15 66 22 79/36 L 96 Nasal Cannula 09/22/25 09:15 79/36 L 09/22/25 09:12 64 24 96 Nasal Cannula 09/22/25 09:11 82/41 L 09/22/25 09:09 92 Nasal Cannula 09/22/25 08:51 63 21 95 Nasal Cannula 09/22/25 08:50 75/35 L 09/22/25 08:48 60 21 96 Nasal Cannula 09/22/25 08:45 66 22 76/39 L 100 Nasal Cannula 09/22/25 08:21 65 25 H 100 Nasal Cannula 09/22/25 08:20 79/41 L 09/22/25 08:20 79/41 L 09/22/25 08:20 79/41 L 09/22/25 08:20 79/41 L 09/22/25 08:18 67 23 78/39 L 100 09/22/25 08:15 78/39 L 09/22/25 08:12 73 11 L 100 09/22/25 08:11 97 Nasal Cannula 09/22/25 08:10 86/47 L 09/22/25 08:10 86/47 L 09/22/25 08:09 75 17 96 Nasal Cannula 09/22/25 08:05 75/39 L 09/22/25 08:02 98 Room Air 09/22/25 08:02 35.6 C L 70 25 H 72/43 L 99 Room Air 09/22/25 08:00 82/37 L 09/22/25 08:00 68 27 H 82/37 L 96 Nasal Cannula 09/22/25 07:55 76/40 L 09/22/25 07:54 69 25 H 100 Nasal Cannula 09/22/25 07:53 70 09/22/25 07:51 69 28 H 77/36 L 09/22/25 07:47 74/32 L 09/22/25 07:45 65 24 09/22/25 07:42 65 26 H 09/22/25 07:38 62/35 L O2 Del Method O2 Flow Rate O2 Flow Rate 09/22/25 13:30 09/22/25 13:15 09/22/25 13:00 09/22/25 12:45 09/22/25 12:30 09/22/25 12:15 09/22/25 12:00 09/22/25 11:45 09/22/25 11:45 09/22/25 11:45 09/22/25 11:45 09/22/25 11:45 09/22/25 11:45 09/22/25 11:33 09/22/25 11:33 09/22/25 11:33 09/22/25 11:33 09/22/25 11:33 09/22/25 11:33 09/22/25 11:30 09/22/25 11:00 09/22/25 11:00 09/22/25 11:00 09/22/25 11:00 09/22/25 11:00 09/22/25 10:53 Nasal Cannula 4 09/22/25 10:15 4 09/22/25 10:15 4 09/22/25 09:56 09/22/25 09:45 4 09/22/25 09:42 4 09/22/25 09:40 09/22/25 09:39 4 09/22/25 09:35 09/22/25 09:35 09/22/25 09:35 09/22/25 09:30 4 09/22/25 09:25 09/22/25 09:25 09/22/25 09:24 4 09/22/25 09:21 4 09/22/25 09:20 09/22/25 09:18 4 09/22/25 09:15 4 09/22/25 09:15 09/22/25 09:12 4 09/22/25 09:11 09/22/25 09:09 4 09/22/25 08:51 4 09/22/25 08:50 09/22/25 08:48 4 09/22/25 08:45 4 09/22/25 08:21 4 09/22/25 08:20 09/22/25 08:20 09/22/25 08:20 09/22/25 08:20 09/22/25 08:18 09/22/25 08:15 09/22/25 08:12 09/22/25 08:11 4 09/22/25 08:10 09/22/25 08:10 09/22/25 08:09 4 09/22/25 08:05 09/22/25 08:02 09/22/25 08:02 09/22/25 08:00 09/22/25 08:00 4 09/22/25 07:55 09/22/25 07:54 4 09/22/25 07:53 09/22/25 07:51 09/22/25 07:47 09/22/25 07:45 09/22/25 07:42 09/22/25 07:38 Coding Level of Care Code 58921 CRITICAL CARE 1ST 30-74M Diagnoses Septic shock A41.9; R65.21 Pancolitis K52.9 C. difficile colitis A04.72 Acute renal failure N17.9 Acute hypoxic respiratory failure J96.01 Pneumonia J18.9 Acute hyponatremia E87.1 Metabolic acidosis E87.20 Lactic acid acidosis E87.20 Pleural effusion J90 COPD (chronic obstructive pulmonary disease) J44.9
--- NOTE | 2025-09-22 15:57 | XRay Report ---
EXAM: Radiograph of the Chest 1 View INDICATION: Feeding tube placement. TECHNIQUE: Frontal view of the lower chest and upper abdomen obtained for the purposes of localizing the feeding tube. COMPARISON: No relevant prior studies available. FINDINGS: Lungs and pleural spaces: Small basilar pleural effusions and patchy infiltrates noted. Heart: Shape and configuration within normal limits allowing for technique. Mediastinum: Normal contour. Bones/joints: No fracture, erosion or dislocation. Soft tissues: No abnormality noted. No radiopaque foreign body noted. Tubes, lines and devices: Radiopaque tip of the feeding tube is in the expected location of the pyloric channel. Upper abdomen: Nonspecific aeration of bowel loops in the upper abdomen noted. IMPRESSION: 1. Radiopaque tip of the feeding tube is in the expected location of the pyloric channel. 2. Small pleural effusions and mild patchy basilar infiltrates. ACT 112: N/A Electronically signed by Merari Arana 09-22-2025 3:57 PM
[2025-09-22] MEDS: cefTRIAXone SODIUM 2,000 MG/50 ML BAG IV SCH (16:14)
[2025-09-22] MEDS: SODIUM BICARB 8.4% INJ 50 MEQ/50 ML SYR IV STA (16:14)
[2025-09-22] MEDS: NOREPINEPHRINE IV SCH (16:14)
[2025-09-22] MEDS: D5W IV SCH (16:14)
[2025-09-22] MEDS: SODIUM BICARB 8.4% INJ 50 MEQ/50 ML SYR IV ONE (16:15)
[2025-09-22] MEDS: VANCOMYCIN HCL 250 MG CAP PO SCH (16:15)
[2025-09-22] MEDS: VANCOMYCIN HCL 500 MG/100 ML ENEMA PR SCH (16:15)
[2025-09-22] MEDS: metroNIDAZOLE 500 MG/100 ML BAG IV SCH (16:16)
--- NOTE | 2025-09-22 17:18 | Procedure Note ---
Procedure Note Date of Service September 22, 2025 Procedure: Inserting ultrasound-guided central gasoline service attendant: Dr. Coral Conte Indication: Hypotension Consent: Signed by NOK and verified with Timeout prior to procedure. Anesthesia: 1% lidocaine without epinephrine local. Procedure: Consent was verified and timeout performed. Appropriate imaging studies were reviewed prior to the procedure. Under aseptic and sterile condition, left IJ vein was accessed under direct ultrasound guidance. Guidewire was confirmed to be within the lumen of vein with the help of ultrasound. Catheter was introduced via Seldinger technique. Guide a wire was removed. Good non-pulsatile blood flow was appreciated from all the ports. The catheter was placed at 20 cm and sutured in place. BioPatch was applied to the catheter and a sterile Tegaderm dressing was applied over the catheter with careful attention to sterility. Chest x-ray after the procedure showed that the central line had taken an erroneous turn coursing cranially on the right. Line was pulled back to 15 cm with appropriate position on imaging. Patient tolerated the procedure well. Blood loss: Less than 2 cc Complications: None [facility] [place] Procedure Codes (Charges) Tubes, Drains, and Vasc Access Procedure 1: Tubes, Drains, and Vasc Access: [id number] Insertion Of Non-tunneled Catheter Age 6 Yrs> Coding CPT Codes Tubes, Drains, and Vasc Access - Tubes, Drains, and Vasc Access: [id number] Insertion Of Non-tunneled Catheter Age 6 Yrs> ([id number]) Additional Codes Date of Service (PG.SURGERY)
--- NOTE | 2025-09-22 17:20 | Procedure Note ---
Procedure Note Date of Service September 22, 2025 Procedure: Radial arterial line insertion, ultrasound-guided Dock Clerk: Dr. Coral Conte Indication: Hypotension, shock Consent: Consent signed by patient and verified with timeout prior to procedure Anesthesia: 1% lidocaine without epinephrine local. Procedure: Les test was performed to ensure adequate perfusion on the left wrist. Consent was verified and timeout performed. Skin was cleaned with chlorhexidine and sterile drape and gloves were donned. 1% lidocaine was used to numb the skin and soft tissue. The left radial artery was visualized under direct ultrasound guidance. Arrow radial arterial line kit needle was inserted into the left radial artery. Arterial blood was seen to pulsate in flash chamber. Internal guidewire was advanced into the radial artery and the catheter was advanced over the guidewire. Needle and wire were withdrawn. Pulsatile blood return from the catheter. Pressure was applied to the end of the catheter. Catheter was attached to the arterial line tubing. Pulsatile arterial waveform was visualized. Multiple attempts had to be done on the left wrist before successful cannulation, patient had a spastic left radial artery and it was difficult to cannulate. No hematoma appreciated. Catheter was secured with suture and dressing was applied. Patient tolerated the procedure well. Blood loss: Less than 5 cc Complications: None [facility] [place] Procedure Codes (Charges) Tubes, Drains, and Vasc Access Procedure 1: Tubes, Drains, and Vasc Access: [id number] Arterial Cath/Cannulation Sampling/Monitoring/Transfusion Coding CPT Codes Tubes, Drains, and Vasc Access - Tubes, Drains, and Vasc Access: [id number] Arterial Cath/Cannulation Sampling/Monitoring/Transfusion ([id number]) Additional Codes Date of Service (PG.SURGERY)
[2025-09-22] MEDS: VANCOMYCIN HCL 500 MG/10 ML SOLN PO SCH (17:37)
[2025-09-22] MEDS ORDERED: SODIUM CHLORIDE 0.9% 1,000 ML IV PRN (17:46)
--- NOTE | 2025-09-22 18:01 | Nephrology Consultation ---
Date of Consultation September 22, 2025 Assessment & Plan (1) Acute renal failure: * Oliguric BEAN/CKD due to septic shock related to C. Difficile colitis * Lisinopril has been stopped. Volume resuscitation and pressor support has been provided as per ICU team * Noncontrast abdominal CT negative for obstruction * POC discussed w/ critical care attending. Patient does not appear to be stable for medical transfer. We likely will not find an accepting tertiary care center over the holiday. Medical status discussed w/ patient and his . Risk of severe acidosis explained. Indications/benefits/risks/alternatives to temporary dialysis catheter insertion and HD discussed in detail. Mr. Gallardo vocalized understanding and appeared competent to make medical decisions. He agreed to initiation of HD. Critical care team updated. They will place temporary dialysis catheter. director call HD RN contacted and orders for emergency HD placed in EMR. * Will provide HD using 130 mmol/L dialysate due to hyponatremia, HCO3 36 due to severe metabolic acidosis. No UF due to hypotension * CMP, CBC in am (2) Lactic acid acidosis: * High anion gap metabolic acidosis due to lactic acidosis, BEAN * Continue current 1L bicarbonate infusion (3) C. difficile colitis: * On DE Vanco, IV Flagyl (4) Pancolitis: * General surgery following (5) Septic shock: * Critical nature of patient's illness and guarded prognosis discussed in detail w/ patient and his family this evening. They understand the gravity of his illness. He is DNI/DNR but does agree to trial of HD History of Present Illness Reason for Consultation: Oliguric BEAN/CKD, severe metabolic acidosis Attending Physician: Jay Owen MD History of Present Illness Mr. Gallardo is an 84 year old white male who is seen emergently in the ICU at the request of the critical care team for evaluation of oliguric BEAN/CKD with severe metabolic acidosis. Information for the HPI is obtained from direct patient interview and review of the EMR. HPI is summarized as follows: Mr. Gallardo has CKD w/ baseline Cr 1.1-1.3 and EGFR 50-54 cc/min. 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 He was hospitalized at [facility] in late 08/23 with pneumonia. Following discharge he developed antibiotic associated C. difficile. Initially this was treated w/ Dificid but today he presented to the EMD with progressive weakness and dyspnea. SaO2 was 84%, SBP 62 mm Hg, CXR revealed mild pulmonary edema and small R pleural effusion, noncontrast chest CT confirmed these findings as well as consolidation in the RUL with stable irregular segmental upper lobe airway thickening. Abdomen was distended by non-tender. 3L 0.9 NS was administered in the ICU and patient was admitted to the ICU for pressor support. Admission laboratory results revealed WBC 19K w/ 86% neutrophils, Na 122, K 5.0, CO2 8, BUN 109, Cr 5.4. UO has only been 50 cc since admission. Nephrology consultation has been requested for emergency dialysis to help correct severe acidosis and help stabilize blood pressure. Of note, abdominal/pelvic CT performed this morning revealed moderate to severe pancolitis. Patient has undergone surgical evaluation. Recommendation was for ongoing critical care with intervention only for perforation, signs of ischemia. Allergies Allergy/AdvReac Type Severity Reaction Status Date / Time pollen extracts Allergy Intermediate congestion Verified 09/09/25 08:57 Home Medications Medication Instructions Recorded Confirmed Type amlodipine 2.5 mg tablet (Norvasc) 2.5 mg PO BID 03/01/22 09/22/25 History atorvastatin 40 mg tablet (Lipitor) 40 mg PO QAM 03/01/22 09/22/25 History citalopram 20 mg tablet (Celexa) 20 mg PO QAM 03/01/22 09/22/25 History cyclosporine 0.05 % eye drops in a 1 drp OPB BID 03/01/22 09/22/25 History dropperette (Restasis) diphenhydramine HCl 25 mg capsule 25 mg PO DIRECTED PRN NEEDED 03/01/22 09/22/25 History (Benadryl) dutasteride 0.5 mg capsule 0.5 mg PO QAM 03/01/22 09/22/25 History levothyroxine 75 mcg capsule 75 mcg PO DAILYBB 03/01/22 09/22/25 History lisinopril 20 mg tablet 20 mg PO QAM 03/01/22 09/22/25 History lorazepam 0.5 mg tablet (Ativan) 0.5 mg PO Q8H PRN Anxiety 03/01/22 09/22/25 History bfpdgyurvxxx-wsebobpq-pbvvfk tablet 1 tab PO QAM 03/01/22 09/22/25 History pantoprazole 40 mg tablet,delayed 40 mg PO DAILY 03/01/22 09/22/25 History release (Protonix) tamsulosin 0.4 mg capsule (Flomax) 0.4 mg PO QAM 03/01/22 09/22/25 History acetaminophen 500 mg tablet 500 mg PO Q6H PRN PAIN/FEVER 08/24/25 09/22/25 History (Tylenol Extra Strength) fluorometholone acetate 0.1 % eye 1 drp OPB QAM 08/24/25 09/22/25 History drops,suspension (Flarex) peg 400-propylene glycol 0.4 %-0.3 1 drp OPB DIRECTED PRN Dry Eyes 08/24/25 09/22/25 History % eye drops (Systane (propylene glycol)) sildenafil 100 mg tablet 100 mg PO DAILY PRN Sexual Activity 08/24/25 09/22/25 History Anoro Ellipta 62.5 mcg- 1 inh inhalation DAILY #60 ea 09/16/25 09/22/25 Rx mcg/actuation powder for inhalation (umeclidinium-vilanterol) Patient History Medical History Hx of gastric ulcer Depression Hypothyroidism History of lung cancer DX 2010 - ON [place] TILL 2014 TREATMENT: 1. 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 Concurrent chemoradiation - 7200 cGy - 04/08/2011 followed by adjuvant chemotherapy which finished in 10/01/2011" History of Mohs micrographic surgery for skin cancer X2 History of skin cancer Dry eyes Acid reflux Surgical History H/O eye surgery Right Eye Descemet Membrane Endothelial Keratoplasty (DMEK) History of left cataract surgery History of right cataract surgery History of endoscopy History of hernia surgery History of colonoscopy Family History Grandfather Family history of diabetes mellitus Social History Smoking Status: Former smoker Tobacco Type: Cigarettes Age Started Using Tobacco: 19; Age Quit Using Tobacco: 49; packs per day: 1; Second Hand Exposure: No; Do You Dip or Chew Tobacco: No; Hx Alcohol Use: No Hx Substance Use: No Preferred Language: Hungarian Communication Ability: Effective Boats Renter Required: No Beliefs That Will Affect Care: None Current Living Situation: Spouse Other Information That Helps Us Care for You: No Feels Safe at Home: Yes Safety Concerns: Feels Safe At This Time Assistive Devices: Cane and Glasses Review of Systems Constitutional: no fever Eyes: no problem reported Ear, Nose, Mouth, Throat: no problem reported Respiratory: no dyspnea Cardiovascular: + dyspnea at rest; no chest pain Gastrointestinal: + bloating and + diarrhea/loose stools Physical Exam Constitutional: + in distress dyspneic on 4 L O2 NC Eyes: PERRL, conjunctivae normal, anicteric sclerae ENMT: external ear and nose normal, oropharynx normal Neck: trachea midline, no thyromegaly Respiratory: CTA anteriorly Cardiovascular: RRR, no murmur, no edema Gastrointestinal (Abdomen): Inspection/Auscultation: + abdomen distended and + hypoactive bowel sounds Percussion/Palpation: + abdomen tender; no guarding Musculoskeletal: Extremities: no cyanosis and no clubbing Neurologic: no focal motor deficits Results & Data Vital Signs (Past 12 Hours) Vital Signs Temp Pulse Resp BP Pulse Ox Pulse Ox O2 Del Method 09/22/25 13:30 35.2 C L 83 21 97 09/22/25 13:15 34.6 C L 91 H 24 100 09/22/25 13:00 36.4 C L 09/22/25 13:00 35.2 C L 90 19 97 09/22/25 12:45 34.6 C L 89 23 98 09/22/25 12:30 35.1 C L 90 23 99 09/22/25 12:15 34.6 C L 88 24 97 09/22/25 12:00 34.5 C L 83 24 97 09/22/25 11:45 101/47 L 09/22/25 11:45 101/47 L 09/22/25 11:45 101/47 L 09/22/25 11:45 101/47 L 09/22/25 11:45 101/47 L 09/22/25 11:45 35.0 C L 87 26 H 100 09/22/25 11:33 35.2 C L 88 26 H 95 09/22/25 11:33 112/45 L 09/22/25 11:33 112/45 L 09/22/25 11:33 112/45 L 09/22/25 11:33 112/45 L 09/22/25 11:33 112/45 L 09/22/25 11:30 90 25 H 97 09/22/25 11:00 91 H 22 100 09/22/25 11:00 92/43 L 09/22/25 11:00 92/43 L 09/22/25 11:00 92/43 L 09/22/25 11:00 92/43 L 09/22/25 10:53 99 09/22/25 10:15 Nasal Cannula 09/22/25 10:15 36.0 C L 24 99 Nasal Cannula 09/22/25 09:56 35.7 C L 84 24 99/48 L 98 Room Air 09/22/25 09:45 77 24 104/44 L 99 Nasal Cannula 09/22/25 09:42 69 26 H 91 Nasal Cannula 09/22/25 09:40 87/40 L 09/22/25 09:39 70 20 90 Nasal Cannula 09/22/25 09:35 80/38 L 09/22/25 09:35 80/38 L 09/22/25 09:35 80/38 L 09/22/25 09:30 62 19 80/36 L 95 Nasal Cannula 09/22/25 09:25 81/44 L 09/22/25 09:25 81/44 L 09/22/25 09:24 64 22 90 Nasal Cannula 09/22/25 09:21 65 21 96 Nasal Cannula 09/22/25 09:20 77/37 L 09/22/25 09:18 66 23 96 Nasal Cannula 09/22/25 09:15 66 22 79/36 L 96 Nasal Cannula 09/22/25 09:15 79/36 L 09/22/25 09:12 64 24 96 Nasal Cannula 09/22/25 09:11 82/41 L 09/22/25 09:09 92 Nasal Cannula 09/22/25 08:51 63 21 95 Nasal Cannula 09/22/25 08:50 75/35 L 09/22/25 08:48 60 21 96 Nasal Cannula 09/22/25 08:45 66 22 76/39 L 100 Nasal Cannula 09/22/25 08:21 65 25 H 100 Nasal Cannula 09/22/25 08:20 79/41 L 09/22/25 08:20 79/41 L 09/22/25 08:20 79/41 L 09/22/25 08:20 79/41 L 09/22/25 08:18 67 23 78/39 L 100 09/22/25 08:15 78/39 L 09/22/25 08:12 73 11 L 100 09/22/25 08:11 97 Nasal Cannula 09/22/25 08:10 86/47 L 09/22/25 08:10 86/47 L 09/22/25 08:09 75 17 96 Nasal Cannula 09/22/25 08:05 75/39 L 09/22/25 08:02 98 Room Air 09/22/25 08:02 35.6 C L 70 25 H 72/43 L 99 Room Air 09/22/25 08:00 82/37 L 09/22/25 08:00 68 27 H 82/37 L 96 Nasal Cannula 09/22/25 07:55 76/40 L 09/22/25 07:54 69 25 H 100 Nasal Cannula 09/22/25 07:53 70 09/22/25 07:51 69 28 H 77/36 L 09/22/25 07:47 74/32 L 09/22/25 07:45 65 24 09/22/25 07:42 65 26 H 09/22/25 07:38 62/35 L O2 Del Method O2 Flow Rate O2 Flow Rate 09/22/25 13:30 09/22/25 13:15 09/22/25 13:00 09/22/25 13:00 09/22/25 12:45 09/22/25 12:30 09/22/25 12:15 09/22/25 12:00 09/22/25 11:45 09/22/25 11:45 09/22/25 11:45 09/22/25 11:45 09/22/25 11:45 09/22/25 11:45 09/22/25 11:33 09/22/25 11:33 09/22/25 11:33 09/22/25 11:33 09/22/25 11:33 09/22/25 11:33 09/22/25 11:30 09/22/25 11:00 09/22/25 11:00 09/22/25 11:00 09/22/25 11:00 09/22/25 11:00 09/22/25 10:53 Nasal Cannula 4 09/22/25 10:15 4 09/22/25 10:15 4 09/22/25 09:56 09/22/25 09:45 4 09/22/25 09:42 4 09/22/25 09:40 09/22/25 09:39 4 09/22/25 09:35 09/22/25 09:35 09/22/25 09:35 09/22/25 09:30 4 09/22/25 09:25 09/22/25 09:25 09/22/25 09:24 4 09/22/25 09:21 4 09/22/25 09:20 09/22/25 09:18 4 09/22/25 09:15 4 09/22/25 09:15 09/22/25 09:12 4 09/22/25 09:11 09/22/25 09:09 4 09/22/25 08:51 4 09/22/25 08:50 09/22/25 08:48 4 09/22/25 08:45 4 09/22/25 08:21 4 09/22/25 08:20 09/22/25 08:20 09/22/25 08:20 09/22/25 08:20 09/22/25 08:18 09/22/25 08:15 09/22/25 08:12 09/22/25 08:11 4 09/22/25 08:10 09/22/25 08:10 09/22/25 08:09 4 09/22/25 08:05 09/22/25 08:02 09/22/25 08:02 09/22/25 08:00 09/22/25 08:00 4 09/22/25 07:55 09/22/25 07:54 4 09/22/25 07:53 09/22/25 07:51 09/22/25 07:47 09/22/25 07:45 09/22/25 07:42 09/22/25 07:38 Laboratory Results Laboratory Results WBC 19.31 K/ul (4.8-10.8) H 09/22/25 07:50 RBC 3.37 M/uL (4.70-6.10) L 09/22/25 07:50 Hgb 11.2 g/dL (14.0-18.0) L 09/22/25 07:50 POC Hgb 12.2 g/dl (14.0-18.0) L 09/22/25 15:04 Hct 32.0 % (42.0-52.0) L 09/22/25 07:50 POC Hct 36 % (42-52) L 09/22/25 15:04 MCV 95.0 fL (80.0-100.0) 09/22/25 07:50 MCH 33.2 pg (25.0-34.0) 09/22/25 07:50 MCHC 35.0 g/dL (32.0-36.0) 09/22/25 07:50 RDW Std Deviation 53.1 fL (36.4-46.3) H 09/22/25 07:50 RDW Coeff of Vanessa 15.0 % (11.5-14.5) H 09/22/25 07:50 Plt Count 396 K/uL (130-400) 09/22/25 07:50 MPV 9.8 fL (9.4-12.4) 09/22/25 07:50 Immature Gran % (Auto) 3.7 % 09/22/25 07:50 Neut % (Auto) 86.4 % 09/22/25 07:50 Lymph % (Auto) 1.7 % 09/22/25 07:50 Ward % (Auto) 7.9 % 09/22/25 07:50 Eos % (Auto) 0.1 % 09/22/25 07:50 Baso % (Auto) 0.2 % 09/22/25 07:50 Neut # (Auto) 16.69 K/uL (1.40-6.50) H 09/22/25 07:50 Lymph # (Auto) 0.32 K/uL (1.20-3.40) L 09/22/25 07:50 Ward # (Auto) 1.53 K/uL (0.11-0.59) H 09/22/25 07:50 Eos # (Auto) 0.01 K/uL (0.00-0.50) 09/22/25 07:50 Baso # (Auto) 0.04 K/uL (0.00-0.20) 09/22/25 07:50 Immature Gran # (Auto) 0.72 K/uL (0.01-0.20) H 09/22/25 07:50 Toxic Vacuolation 1+ 09/22/25 07:50 Echinocytes 1+ 09/22/25 07:50 PT 11.4 Seconds (9.0-12.0) 09/22/25 07:50 INR 1.1 (0.9-1.1) 09/22/25 07:50 APTT 31 Seconds (21-31) 09/22/25 07:50 PTT Ratio 1.1 09/22/25 07:50 Specimen Type Arterial 09/22/25 15:04 Sample Site Art Line 09/22/25 15:04 POC pH 7.18 (7.35-7.45) L* 09/22/25 15:04 POC pCO2 20 mmHg (35-46) L 09/22/25 15:04 POC pO2 67 mmHg (80-95) L 09/22/25 15:04 POC HCO3 7 mmol/L (19-24) L 09/22/25 15:04 POC Total CO2 8 mmol/L (24-31) L* 09/22/25 15:04 POC Base Excess -21.0 mmol/L (-9-1.8) L 09/22/25 15:04 O2 Sat Pulse Oximetry 98 09/22/25 15:04 ABG pH (Temp Correct) 7.177 (7.35-7.45) L* 09/22/25 15:04 ABG pCO2 (Temp Corrct 20 mmHg (35-46) L 09/22/25 15:04 POC ABG pO2 at Pt Temp 67 09/22/25 15:04 POC ABG O2 Sat 88.0 % (90-95) L 09/22/25 15:04 Les Test NA 09/22/25 15:04 VBG pH 7.10 (7.36-7.41) L 09/22/25 11:02 VBG pCO2 27 mmHg (38-50) L 09/22/25 11:02 VBG pO2 33 mmHg 09/22/25 11:02 VBG HCO3 8 mmol/L 09/22/25 11:02 VBG O2 Saturation < 60.0 % 09/22/25 11:02 VBG Base Excess -19.9 mEq/L 09/22/25 11:02 O2 Delivery Device Cannula 09/22/25 15:04 POC Sodium 122 mmol/L (135-144) L 09/22/25 15:04 Sodium 122 mmol/L (136-145) L 09/22/25 14:28 POC Potassium 4.8 mmol/L (3.3-5.0) 09/22/25 15:04 Potassium 5.0 mmol/L (3.5-5.1) 09/22/25 14:28 Chloride 98 mmol/L (98-107) 09/22/25 14:28 Carbon Dioxide 8 mmol/L (21-32) L* 09/22/25 14:28 Anion Gap 16 (3-11) H 09/22/25 14:28 BUN 109 mg/dl (6-23) H 09/22/25 14:28 Creatinine 5.39 mg/dl (0.6-1.4) H* D 09/22/25 14:28 Est Cr Clr Drug Dosing 9.5 ml/min 09/22/25 14:28 eGFR 9.89 09/22/25 14:28 BUN/Creatinine Ratio 20.2 (10-20) H 09/22/25 14:28 Glucose 191 mg/dl (70-99(Fasting)) H 09/22/25 14:28 POC Glucose (other) 197 mg/dl (70-99) H 09/22/25 17:57 Osmolality 296 mOsm/kg (280-300) 09/22/25 07:50 Lactate 1.0 mmol/L (0.4-2.0) 09/22/25 15:55 Calcium 7.1 mg/dl (8.6-10.3) L 09/22/25 14:28 Phosphorus 7.3 mg/dl (2.5-4.9) H 09/22/25 11:02 Magnesium 2.3 mg/dl (1.7-2.4) 09/22/25 07:50 Total Bilirubin 0.3 mg/dl (0.2-1.0) 09/22/25 07:50 Direct Bilirubin 0.1 mg/dl (0-0.2) 09/22/25 07:50 AST 37 U/L (13-39) 09/22/25 07:50 ALT 35 U/L (7-52) 09/22/25 07:50 Alkaline Phosphatase 114 U/L (34-104) H 09/22/25 07:50 Troponin I High Sens 22.0 pg/ml (0-20) H D 09/22/25 11:02 Total Protein 4.7 gm/dl (6.0-8.3) L 09/22/25 07:50 Albumin 2.2 gm/dl (3.4-5.0) L 09/22/25 07:50 Procalcitonin 5.51 ng/ml (0-0.5) H 09/22/25 07:50 Urine Color Dark Yellow 09/22/25 07:50 Urine Appearance Clear (Clear) 09/22/25 07:50 Urine pH 5.0 (4.5-7.5) 09/22/25 07:50 Ur Specific Poth 1.021 (1.000-1.030) 09/22/25 07:50 Urine Protein Trace (Negative) H 09/22/25 07:50 Urine Glucose (UA) Negative (Negative) 09/22/25 07:50 Urine Ketones Trace (Negative) H 09/22/25 07:50 Urine Blood Negative (Negative) 09/22/25 07:50 Urine Nitrite Negative (Negative) 09/22/25 07:50 Urine Bilirubin 1+ (Negative) H 09/22/25 07:50 Urine Urobilinogen Negative (Negative) 09/22/25 07:50 Ur Leukocyte Esterase 1+ (Negative) H 09/22/25 07:50 Urine WBC (Auto) 0-5 /hpf (0-5) 09/22/25 07:50 Urine RBC (Auto) 11-20 /hpf (0-2) H 09/22/25 07:50 U Hyaline Cast (Auto) >20 /lpf (0-2) H 09/22/25 07:50 U Epithel Cells (Auto) 0-2 /hpf (0-2) 09/22/25 07:50 Urine Bacteria (Auto) None Seen (None Seen) 09/22/25 07:50 Urine Mucus Present (None Prsent) A 09/22/25 07:50 Urine Osmolality 305 mOsm/kg (500-800) L 09/22/25 Unknown Ur Random Sodium < 10 mmol/L 09/22/25 Unknown Urine Comment 09/22/25 07:50 Nasal Screen MRSA (PCR) Negative (Negative) 09/22/25 11:00 SARS-CoV-2 (PCR) NEGATIVE (Negative) 09/22/25 07:58 Influenza Type A (PCR) Negative (Neg) 09/22/25 07:58 Influenza Type B (PCR) Negative (Neg) 09/22/25 07:58 RSV (RT-PCR) Negative (Neg) 09/22/25 07:58 Impressions KUB X-Ray 09/22/25 07:43 EXAM: Radiograph of the Abdomen 1 View INDICATION: Sepsis. Diarrhea. TECHNIQUE: Frontal supine view of the abdomen/pelvis. COMPARISON: No relevant prior studies available. FINDINGS: Limitations: None. Lower thorax: Patchy basilar infiltrates noted. Gastrointestinal tract: Air scattered throughout non-dilated intestinal loops. Organs: Catheter projects over the urinary bladder. Bones/joints: No fracture, erosion or dislocation. Soft tissues: Edematous colonic loops noted with gasless rectum. IMPRESSION: Edematous colon most concerning for colitis. CT abdomen and pelvis recommended preferably with IV contrast. ACT 112: N/A Electronically signed by Merari Arana 09-22-2025 08:33 AM Abdomen/Pelvis CT 09/22/25 08:42 EXAM: CT Abdomen and Pelvis Without Intravenous Contrast INDICATION: C. difficile colitis. Acute renal failure. Sepsis. TECHNIQUE: Axial computed tomography images of the abdomen and pelvis without intravenous contrast. Sagittal and coronal reformatted images were created and reviewed. This CT exam was performed using one or more of the following dose reduction techniques: automated exposure control, adjustment of the mA and/or kV according to patient size, and/or use of iterative reconstruction technique. COMPARISON: No relevant prior studies available. FINDINGS: Limitations: None. Lung bases: See separately dictated chest CT report. ABDOMEN: Liver: Lack of intravenous contrast limits detection of some masses. No abnormality noted. Gallbladder and bile ducts: No calcified stones or surrounding fluid. No ductal dilation. Pancreas: No pancreatic mass, calcification, inflammation or ductal dilation noted. Spleen: No acute abnormality noted. Adrenals: No acute abnormality noted. Kidneys and ureters: Simple bilateral renal cysts noted. No follow-up necessary. No stones or hydronephrosis. Stomach and bowel: There is moderate thickening and inflammation of the entire colon. There is thickening of distal small bowel loops. No small bowel obstruction. No visible pneumatosis. PELVIS: Appendix: The appendix is not distinctly defined. Bladder: Catheter balloon inflated in the urinary bladder which is collapsed and not optimally assessed. No stone noted. Reproductive: No abnormalities noted. ABDOMEN and PELVIS: Intraperitoneal space: Small amounts of free fluid in the abdomen and pelvis. No free air. No loculated collection. Bones/joints: Degenerative changes noted throughout the spine. No acute osseous abnormality seen. Soft tissues: No acute abnormality noted. Vasculature: Atherosclerotic calcification of the aorta and branches. No aneurysm. Lymph nodes: No pathologically enlarged lymph nodes. IMPRESSION: 1. Moderate to severe pancolitis with probable backwash ileitis. 2. Mild ascites without abscess. ACT 112: N/A Electronically signed by Merari Arana 09-22-2025 09:[address] 09/22/25 08:42 EXAM: CT Chest Without Intravenous Contrast INDICATION: Sepsis. C. difficile colitis. Shortness of breath. TECHNIQUE: Axial computed tomography images of the chest without intravenous contrast. Sagittal and coronal reformatted images were created and reviewed. This CT exam was performed using one or more of the following dose reduction techniques: automated exposure control, adjustment of the mA and/or kV according to patient size, and/or use of iterative reconstruction technique. COMPARISON: 08/25/2025 t physical FINDINGS: Limitations: None. Lungs and pleural spaces: Increased small layering right pleural effusion with maximal thickness in the right posterior costophrenic sulcus of 5.2 cm. Stable trace left pleural effusion and thickening. No pneumothorax. Stable right upper lobe irregular segmental airway thickening and bronchiectasis. Increasing consolidation in the apical and posterior right upper lobe. Underlying ground glass infiltrate is improved. There is increased dependent atelectasis in the lower lobes. Heart: Stable enlargement. There is some iatrogenically introduced air in the right ventricle which is not an atypical finding. Mediastinum: The soft distal half of the esophagus is distended with fluid and mildly thickened. Thyroid: No abnormality noted. Bones/joints: No acute changes. Soft tissues: No acute abnormality noted. Vasculature: No abnormality noted. No thoracic aortic aneurysm. Lymph nodes: No enlarged lymph nodes. Intraperitoneal space: Free fluid noted in the upper abdomen. No free air in the upper abdomen. IMPRESSION: 1. Increased right pleural effusion. 2. Increased consolidation in the right upper lobe with stable irregular segmental upper lobe airway thickening. 3. Distended, thickened esophagus with fluid. 4. Free fluid noted in the upper abdomen. ACT 112: N/A Electronically signed by Merari Arana 09-22-2025 09:30 AM Chest X-Ray 09/22/25 14:43 EXAM: Radiograph of the Chest 1 View INDICATION: Feeding tube placement. TECHNIQUE: Frontal view of the lower chest and upper abdomen obtained for the purposes of localizing the feeding tube. COMPARISON: No relevant prior studies available. FINDINGS: Lungs and pleural spaces: Small basilar pleural effusions and patchy infiltrates noted. Heart: Shape and configuration within normal limits allowing for technique. Mediastinum: Normal contour. Bones/joints: No fracture, erosion or dislocation. Soft tissues: No abnormality noted. No radiopaque foreign body noted. Tubes, lines and devices: Radiopaque tip of the feeding tube is in the expected location of the pyloric channel. Upper abdomen: Nonspecific aeration of bowel loops in the upper abdomen noted. IMPRESSION: 1. Radiopaque tip of the feeding tube is in the expected location of the pyloric channel. 2. Small pleural effusions and mild patchy basilar infiltrates. ACT 112: N/A Electronically signed by Merari Arana 09-22-2025 3:57 PM PG Care Time/CCT Total # of Minutes Spent Total Time Spent with Patient: 1 hr 40 min provided reviewing progress notes, ICU consultation, interviewing and examining patient, discussing POC w/ ICU team, discussing prognosis and goals of care with patient//sister, entering dialysis orders, coordinating dialysis treatment w/ on-call HD RN, updating medical record Prolonged Care Time Prolonged Care Time: Yes 80 min consultation 20 min prolonged care Coding Level of Care Code 41868 IN/OBS CONSULT LVL 5,80M Diagnoses Acute renal failure N17.9 Lactic acid acidosis E87.20 C. difficile colitis A04.72 Pancolitis K52.9 Septic shock A41.9; R65.21 Additional Codes Prolonged Care Time - Prolonged Care Time: Yes ([id number])
--- NOTE | 2025-09-22 18:38 | Procedure Note ---
Procedure Note Date of Service September 22, 2025 Procedure: Inserting ultrasound-guided central liner helper: Dr. Coral Conte Indication: Acute renal failure Consent: Signed by NOK and timeout was performed, consent was placed in chart. Anesthesia: 1% lidocaine without epinephrine local. Procedure: Consent was verified and timeout performed. Appropriate imaging studies were reviewed prior to the procedure. Under aseptic and sterile condition, right IJ vein was accessed under direct ultrasound guidance. Guidewire was confirmed to be within the lumen of vein with the help of ultrasound. Catheter was introduced via Seldinger technique. Guide a wire was removed. Good non-pulsatile blood flow was appreciated from all the ports. The catheter was placed at 15 cm and sutured in place. BioPatch was applied to the catheter and a sterile Tegaderm dressing was applied over the catheter with careful attention to sterility. X-ray shows CVC in good position. Patient tolerated the procedure well. Blood loss: Less than 2 cc Complications: None [facility] Procedure Codes (Charges) Tubes, Drains, and Vasc Access Procedure 1: Tubes, Drains, and Vasc Access: [id number] Insertion of cannula for hemodialy sis Coding CPT Codes Tubes, Drains, and Vasc Access - Tubes, Drains, and Vasc Access: [id number] Insertion of cannula for hemodialysis ([id number]) Additional Codes Date of Service ([email or web address])
--- NOTE | 2025-09-22 18:42 | Dialysis Progress Note ---
Date of Service September 22, 2025 Assessment & Plan (1) Acute renal failure: (2) Lactic acid acidosis: Plan Will continue dialysis as ordered. No change at present. Admission and Anticipated Discharge Date Admission Date: September 22, 2025 Subjective Mr. Gallardo was seen during HD this evening. He appears to be tolerating treatment at this time. Temporary R IJ dialysis catheter is running A-->A at Qb 200 cc/min Review of Systems Constitutional: no fever Eyes: no problem reported Ear, Nose, Mouth, Throat: no problem reported Respiratory: no dyspnea Cardiovascular: + dyspnea at rest; no chest pain Gastrointestinal: + bloating and + diarrhea/loose stools Physical Exam Constitutional: + in distress dyspneic on 4 L O2 NC Eyes: PERRL, conjunctivae normal, anicteric sclerae ENMT: external ear and nose normal, oropharynx normal Neck: trachea midline, no thyromegaly Respiratory: CTA anteriorly Cardiovascular: RRR, no murmur, no edema Gastrointestinal (Abdomen): Inspection/Auscultation: + abdomen distended and + hypoactive bowel sounds Percussion/Palpation: + abdomen tender; no guarding Musculoskeletal: Extremities: no cyanosis and no clubbing Neurologic: no focal motor deficits Results & Data Vital Signs (Past 12 Hours) Vital Signs Temp Pulse Resp BP Pulse Ox Pulse Ox O2 Del Method 09/22/25 16:00 83 09/22/25 13:30 35.2 C L 83 21 97 09/22/25 13:15 34.6 C L 91 H 24 100 09/22/25 13:00 36.4 C L 09/22/25 13:00 35.2 C L 90 19 97 09/22/25 12:45 34.6 C L 89 23 98 09/22/25 12:30 35.1 C L 90 23 99 09/22/25 12:15 34.6 C L 88 24 97 09/22/25 12:00 34.5 C L 83 24 97 09/22/25 11:45 101/47 L 09/22/25 11:45 101/47 L 09/22/25 11:45 101/47 L 09/22/25 11:45 101/47 L 09/22/25 11:45 101/47 L 09/22/25 11:45 35.0 C L 87 26 H 100 09/22/25 11:33 35.2 C L 88 26 H 95 09/22/25 11:33 112/45 L 09/22/25 11:33 112/45 L 09/22/25 11:33 112/45 L 09/22/25 11:33 112/45 L 09/22/25 11:33 112/45 L 09/22/25 11:30 90 25 H 97 09/22/25 11:00 91 H 22 100 09/22/25 11:00 92/43 L 09/22/25 11:00 92/43 L 09/22/25 11:00 92/43 L 09/22/25 11:00 92/43 L 09/22/25 10:53 99 09/22/25 10:15 Nasal Cannula 09/22/25 10:15 36.0 C L 24 99 Nasal Cannula 09/22/25 09:56 35.7 C L 84 24 99/48 L 98 Room Air 09/22/25 09:45 77 24 104/44 L 99 Nasal Cannula 09/22/25 09:42 69 26 H 91 Nasal Cannula 09/22/25 09:40 87/40 L 09/22/25 09:39 70 20 90 Nasal Cannula 09/22/25 09:35 80/38 L 09/22/25 09:35 80/38 L 09/22/25 09:35 80/38 L 09/22/25 09:30 62 19 80/36 L 95 Nasal Cannula 09/22/25 09:25 81/44 L 09/22/25 09:25 81/44 L 09/22/25 09:24 64 22 90 Nasal Cannula 09/22/25 09:21 65 21 96 Nasal Cannula 09/22/25 09:20 77/37 L 09/22/25 09:18 66 23 96 Nasal Cannula 09/22/25 09:15 66 22 79/36 L 96 Nasal Cannula 09/22/25 09:15 79/36 L 09/22/25 09:12 64 24 96 Nasal Cannula 09/22/25 09:11 82/41 L 09/22/25 09:09 92 Nasal Cannula 09/22/25 08:51 63 21 95 Nasal Cannula 09/22/25 08:50 75/35 L 09/22/25 08:48 60 21 96 Nasal Cannula 09/22/25 08:45 66 22 76/39 L 100 Nasal Cannula 09/22/25 08:21 65 25 H 100 Nasal Cannula 09/22/25 08:20 79/41 L 09/22/25 08:20 79/41 L 09/22/25 08:20 79/41 L 09/22/25 08:20 79/41 L 09/22/25 08:18 67 23 78/39 L 100 09/22/25 08:15 78/39 L 09/22/25 08:12 73 11 L 100 09/22/25 08:11 97 Nasal Cannula 09/22/25 08:10 86/47 L 09/22/25 08:10 86/47 L 09/22/25 08:09 75 17 96 Nasal Cannula 09/22/25 08:05 75/39 L 09/22/25 08:02 98 Room Air 09/22/25 08:02 35.6 C L 70 25 H 72/43 L 99 Room Air 09/22/25 08:00 82/37 L 09/22/25 08:00 68 27 H 82/37 L 96 Nasal Cannula 09/22/25 07:55 76/40 L 09/22/25 07:54 69 25 H 100 Nasal Cannula 09/22/25 07:53 70 09/22/25 07:51 69 28 H 77/36 L 09/22/25 07:47 74/32 L 09/22/25 07:45 65 24 09/22/25 07:42 65 26 H 09/22/25 07:38 62/35 L O2 Del Method O2 Flow Rate O2 Flow Rate 09/22/25 16:00 09/22/25 13:30 09/22/25 13:15 09/22/25 13:00 09/22/25 13:00 09/22/25 12:45 09/22/25 12:30 09/22/25 12:15 09/22/25 12:00 09/22/25 11:45 09/22/25 11:45 09/22/25 11:45 09/22/25 11:45 09/22/25 11:45 09/22/25 11:45 09/22/25 11:33 09/22/25 11:33 09/22/25 11:33 09/22/25 11:33 09/22/25 11:33 09/22/25 11:33 09/22/25 11:30 09/22/25 11:00 09/22/25 11:00 09/22/25 11:00 09/22/25 11:00 09/22/25 11:00 09/22/25 10:53 Nasal Cannula 4 09/22/25 10:15 4 09/22/25 10:15 4 09/22/25 09:56 09/22/25 09:45 4 09/22/25 09:42 4 09/22/25 09:40 09/22/25 09:39 4 09/22/25 09:35 09/22/25 09:35 09/22/25 09:35 09/22/25 09:30 4 09/22/25 09:25 09/22/25 09:25 09/22/25 09:24 4 09/22/25 09:21 4 09/22/25 09:20 09/22/25 09:18 4 09/22/25 09:15 4 09/22/25 09:15 09/22/25 09:12 4 09/22/25 09:11 09/22/25 09:09 4 09/22/25 08:51 4 09/22/25 08:50 09/22/25 08:48 4 09/22/25 08:45 4 09/22/25 08:21 4 09/22/25 08:20 09/22/25 08:20 09/22/25 08:20 09/22/25 08:20 09/22/25 08:18 09/22/25 08:15 09/22/25 08:12 09/22/25 08:11 4 09/22/25 08:10 09/22/25 08:10 09/22/25 08:09 4 09/22/25 08:05 09/22/25 08:02 09/22/25 08:02 09/22/25 08:00 09/22/25 08:00 4 09/22/25 07:55 09/22/25 07:54 4 09/22/25 07:53 09/22/25 07:51 09/22/25 07:47 09/22/25 07:45 09/22/25 07:42 09/22/25 07:38 Diagnostic Findings 09/22/25 18:13 CXR film reviewed: catheter tip at caval atrial junction, no pneumothorax [facility] Procedure Codes (Charges) Renal/Urologic Renal/Urologic: 97049 Hemodialysis, One Evaluation Coding Level of Care Code None Diagnoses Acute renal failure N17.9 Lactic acid acidosis E87.20 CPT Codes Renal/Urologic - Renal/Urologic: 45529 Hemodialysis, One Evaluation ([id number])
[2025-09-22] MEDS ORDERED: GLUCAGON FOR INJ 1 MG VIAL SQ PRN (18:50)
[2025-09-22] MEDS ORDERED: GLUCOSE 40% GEL 15 GM TUBE PO PRN (18:50)
[2025-09-22] MEDS ORDERED: GLUCOSE 10 TAB/TUBE PO PRN (18:50)
[2025-09-22] MEDS ORDERED: CARBOHYDRATES FOR HYPOGLYCEMIA PO PRN (18:50)
[2025-09-22] MEDS ORDERED: DEXTROSE 50% 50 ML SYRINGE IV PRN (18:50)
[2025-09-22] MEDS: ALBUMIN 5% 250 ML IV ONE (19:44)
--- NOTE | 2025-09-22 20:07 | XRay Report ---
EXAM: Radiograph of the Chest 1 View INDICATION: Evaluate right jugular dialysis catheter. TECHNIQUE: Frontal view of the chest. COMPARISON: 1:05 PM the same day FINDINGS: Lungs and pleural spaces: Persistent but improved patchy airspace disease in the lung bases. No pneumothorax. Heart: Shape and configuration within normal limits allowing for technique. Mediastinum: Normal contour. Bones/joints: No fracture, erosion or dislocation. Soft tissues: No abnormality noted. No radiopaque foreign body noted. Tubes, lines and devices: Insert right internal jugular central venous catheter tip in the distal superior vena cava. Left internal jugular central venous catheter terminates in the transverse brachiocephalic. NG tip. Upper abdomen: No abnormality noted. IMPRESSION: 1. Lines and tubes as above. 2. Persistent but improved patchy airspace disease in the lung bases. ACT 112: N/A Electronically signed by Merari Arana 09-22-2025 8:07 PM
[2025-09-22] MEDS: INSULIN ASPART PER UNIT CHARGE SC SCH (20:46)
[2025-09-22] MEDS: HEPARIN SOD 5,000 UNIT/0.5 ML VIAL SQ SCH (20:48)
[2025-09-22 20:50] LABS: Hep B Surface Ag with confirm Negative (Negative)
[2025-09-23 00:13] LABS: Anion Gap 15.0 (3-11); Blood Urea Nitrogen 73.0 mg/dl (6-23); Calcium 7.0 mg/dl (8.6-10.3); Carbon Dioxide 17.0 mmol/L (21-32); Chloride 97.0 mmol/L (98-107); Creatinine Clr Calc Pharmacy 12.0 ml/min; Glucose 162.0 mg/dl (70-99(Fasting)); Magnesium 2.0 mg/dl (1.7-2.4); Potassium 3.9 mmol/L (3.5-5.1); Sodium 129.0 mmol/L (136-145)
[2025-09-23] MEDS: CALCIUM CHLORIDE 10% 1,000 MG in DEXTROSE 5% 50 ML IV STA (01:32)
[2025-09-23 04:56] LABS: Alanine Aminotransferase 37.0 U/L (7-52); Albumin Globulin Ratio 0.9 (0.9-2); Albumin Level 2.2 gm/dl (3.4-5.0); Alkaline Phosphatase 144.0 U/L (34-104); Anion Gap 16.0 (3-11); Bilirubin,Total 0.4 mg/dl (0.2-1.0); Blood Urea Nitrogen 77.0 mg/dl (6-23); Calcium 7.4 mg/dl (8.6-10.3); Carbon Dioxide 16.0 mmol/L (21-32); Chloride 97.0 mmol/L (98-107); Creatinine Clr Calc Pharmacy 11.7 ml/min; Globulin 2.5 gm/dl (2.5-4.0); Glucose 177.0 mg/dl (70-99(Fasting)); Magnesium 2.1 mg/dl (1.7-2.4); Potassium 4.0 mmol/L (3.5-5.1); Sodium 129.0 mmol/L (136-145); Total Protein 4.7 gm/dl (6.0-8.3)
[2025-09-23 05:07] LABS: Hematocrit (blood only) 33.4 % (42.0-52.0); Hemoglobin 12.2 g/dL (14.0-18.0); Mean Corpuscular Hemoglobin 32.4 pg (25.0-34.0); Mean Corpuscular Volume 88.6 fL (80.0-100.0); Platelet Count 349 K/uL (130-400); RDW Standard Deviation 45.3 fL (36.4-46.3); Red Blood Count 3.77 M/uL (4.70-6.10); White Blood Count 16.50 K/ul (4.8-10.8)
[2025-09-23] MEDS: LEVOTHYROXINE SODIUM 75 MCG TABLET PO SCH (05:34)
[2025-09-23 05:40] LABS: Immature Granulocytes # (auto) 0.67 K/uL (0.01-0.20); Immature Granulocytes % (auto) 4.1 %; Polychromasia 1+
[2025-09-23] MEDS ORDERED: 0.2 MICRON FILTER SET 1 EACH IV STA (08:07)
[2025-09-23] MEDS: CITALOPRAM 20 MG TAB PO SCH (08:07)
[2025-09-23] MEDS ORDERED: STAT IV Infusion **Titration per Protocol STA (08:07)
[2025-09-23] MEDS: PANTOprazole 40 MG/10 ML SYR IV SCH (08:10)
[2025-09-23] MEDS: UMECLIDINIUM/VILANTEROL 62.5/25MCG 7 PUFFS/INHALER INH SCH (08:15)
[2025-09-23] MEDS: AMIODARONE / D5W 150 MG/100 ML BAG IV STA (08:16)
[2025-09-23] MEDS: CALCIUM GLUCONATE 1,000 MG/60 ML BAG IV SCH (08:16)
[2025-09-23] MEDS ORDERED: SODIUM CHLORIDE 0.9% 1,000 ML IV PRN (08:28)
[2025-09-23] MEDS: AMIODARONE / D5W 360 MG/200 ML BAG IV ONE (08:30)
[2025-09-23] MEDS: AMIODARONE IV BOLUS & DRIP IV STA (08:31)
--- NOTE | 2025-09-23 08:32 | Nephrology Progress Note ---
Date of Service September 23, 2025 Assessment & Plan (1) Acute renal failure: Plan: * Oliguric BEAN/CKD due to septic shock related to C. Difficile colitis in the setting of ACEi therapy * Lisinopril has been stopped * Pressor support provided as per ICU team * Noncontrast abdominal CT negative for obstruction * POC discussed w/ critical care attending. Patient's condition has improved following dialysis last evening. He remains pressor dependent and requires supplemental IV NaHCO3 * Will provide HD today for correction of acidosis. No volume removal. Orders have been placed in EMR. On-call HD RN has been notified and updated regarding patient's medical condition * BMP, CBC in am (2) Lactic acid acidosis: Plan: * High anion gap metabolic acidosis due to lactic acidosis, BEAN (3) C. difficile colitis: Plan: * On CO Vanco, IV Flagyl (4) Pancolitis: Plan: * General surgery following (5) Septic shock: Plan: * Critical nature of patient's illness and guarded prognosis discussed in detail w/ patient and his family last evening. They understand the gravity of his illness. He is DNI/DNR but does agree to trial of HD Admission and Anticipated Discharge Date Admission Date: September 22, 2025 Subjective Mr. Gallardo evaluated in the ICU this morning. He appears more comfortable but still has abdominal distention and discomfort. He denies dyspnea or angina. Mr. Gallardo was dialyzed emergently yesterday for correction of acidemia. He did require low-dose heparin during his treatment to prevent filter clotting. Review of Systems Constitutional: no fever Eyes: no problem reported Ear, Nose, Mouth, Throat: no problem reported Respiratory: no dyspnea Cardiovascular: no chest pain and no dyspnea at rest Gastrointestinal: + bloating and + diarrhea/loose stools Physical Exam Constitutional: not in distress Eyes: PERRL, conjunctivae normal, anicteric sclerae ENMT: external ear and nose normal, oropharynx normal Neck: trachea midline, no thyromegaly Cardiovascular: RRR, no murmur, no edema Gastrointestinal (Abdomen): Inspection/Auscultation: + abdomen distended and + hypoactive bowel sounds Percussion/Palpation: abdomen nontender and no guarding Musculoskeletal: Extremities: no cyanosis and no clubbing Neurologic: no focal motor deficits Results & Data Vital Signs (Past 12 Hours) Vital Signs Temp Pulse Pulse Resp BP BP Pulse Ox 09/23/25 06:30 98/65 L 09/23/25 06:30 118 H 18 100 09/23/25 06:15 118 H 21 100 09/23/25 06:00 117 H 19 100 09/23/25 06:00 116/64 09/23/25 05:45 118 H 22 100 09/23/25 05:30 116/72 09/23/25 05:30 120 H 20 100 09/23/25 05:15 100 09/23/25 05:00 123 H 25 H 100 09/23/25 04:45 123 H 26 H 100 09/23/25 04:30 121 H 23 100 09/23/25 04:30 114/72 09/23/25 04:15 123 H 14 100 09/23/25 04:00 108/59 L 09/23/25 04:00 122 H 20 100 09/23/25 03:45 138 H 24 100 09/23/25 03:31 114/65 09/23/25 03:30 132 H 27 H 100 09/23/25 03:16 95/59 L 09/23/25 03:15 130 H 26 H 100 09/23/25 03:11 36.8 C 09/23/25 03:00 123 H 20 100 09/23/25 02:45 126 H 22 100 09/23/25 02:30 128 H 27 H 100 09/23/25 02:15 138 H 22 100 09/23/25 02:00 149 H 20 100 09/23/25 01:45 135 H 24 100 09/23/25 01:30 133 H 28 H 95 09/23/25 01:29 125 H 09/23/25 01:15 142 H 23 100 09/23/25 01:00 120 H 19 98 09/23/25 00:45 122 H 21 100 09/23/25 00:30 121 H 20 99 09/23/25 00:15 122 H 18 100 09/23/25 00:00 133 H 21 85 L 09/22/25 23:52 37.1 C 09/22/25 23:45 132 H 27 H 100 09/22/25 23:30 122 H 27 H 98 09/22/25 23:15 121 H 25 H 100 09/22/25 23:00 123 H 25 H 100 09/22/25 22:45 134 H 23 99 09/22/25 22:30 128 H 24 94 09/22/25 22:15 124 H 26 H 98 09/22/25 22:00 35.6 C L 123 H 29 H 100 09/22/25 21:55 37.3 C 123 H 139/48 L 09/22/25 21:45 36.5 C 123 H 29 H 99 09/22/25 21:30 09/22/25 21:30 36.4 C L 124 H 24 99 09/22/25 21:30 124 H 104/41 L 09/22/25 21:15 36.4 C L 124 H 27 H 99 09/22/25 21:15 124 H 112/43 L 09/22/25 21:00 36.7 C 123 H 30 H 92 09/22/25 21:00 123 H 119/46 L 09/22/25 20:45 36.8 C 124 H 22 100 09/22/25 20:45 123 H 123/45 L O2 Del Method O2 Flow Rate 09/23/25 06:30 09/23/25 06:30 09/23/25 06:15 09/23/25 06:00 09/23/25 06:00 09/23/25 05:45 09/23/25 05:30 09/23/25 05:30 09/23/25 05:15 09/23/25 05:00 09/23/25 04:45 09/23/25 04:30 09/23/25 04:30 09/23/25 04:15 09/23/25 04:00 09/23/25 04:00 09/23/25 03:45 09/23/25 03:31 09/23/25 03:30 09/23/25 03:16 09/23/25 03:15 09/23/25 03:11 09/23/25 03:00 09/23/25 02:45 09/23/25 02:30 09/23/25 02:15 09/23/25 02:00 09/23/25 01:45 09/23/25 01:30 09/23/25 01:29 09/23/25 01:15 09/23/25 01:00 09/23/25 00:45 09/23/25 00:30 09/23/25 00:15 09/23/25 00:00 09/22/25 23:52 09/22/25 23:45 09/22/25 23:30 09/22/25 23:15 09/22/25 23:00 09/22/25 22:45 09/22/25 22:30 09/22/25 22:15 09/22/25 22:00 09/22/25 21:55 09/22/25 21:45 09/22/25 21:30 Nasal Cannula 4 09/22/25 21:30 09/22/25 21:30 09/22/25 21:15 09/22/25 21:15 09/22/25 21:00 09/22/25 21:00 09/22/25 20:45 09/22/25 20:45 Laboratory Results Laboratory Results - last 24 hr 09/22/25 09/22/25 09/22/25 07:50 07:58 11:00 WBC RBC Hgb POC Hgb Hct POC Hct MCV MCH MCHC RDW Std Deviation RDW Coeff of Vanessa Plt Count MPV Immature Gran % (Auto) 3.7 Neut % (Auto) 86.4 Lymph % (Auto) 1.7 Keith % (Auto) 7.9 Eos % (Auto) 0.1 Baso % (Auto) 0.2 Neut # (Auto) 16.69 H Lymph # (Auto) 0.32 L Keith # (Auto) 1.53 H Eos # (Auto) 0.01 Baso # (Auto) 0.04 Immature Gran # (Auto) 0.72 H Toxic Vacuolation 1+ Polychromasia Echinocytes 1+ PT 11.4 INR 1.1 APTT 31 PTT Ratio 1.1 Specimen Type Sample Site POC pH POC pCO2 POC pO2 POC HCO3 POC Total CO2 POC Base Excess O2 Sat Pulse Oximetry ABG pH (Temp Correct) ABG pCO2 (Temp Corrct POC ABG pO2 at Pt Temp POC ABG O2 Sat Les Test VBG pH VBG pCO2 VBG pO2 VBG HCO3 VBG O2 Saturation VBG Base Excess O2 Delivery Device POC Sodium Sodium 121 L POC Potassium Potassium 4.7 Chloride 94 L Carbon Dioxide 10 L Anion Gap 17 H BUN 116 H Creatinine 6.40 H* Est Cr Clr Drug Dosing 7.9 eGFR 8.05 BUN/Creatinine Ratio 18.1 Glucose 174 H POC Glucose (other) Osmolality 296 Lactate Calcium 7.3 L Ionized Calcium Phosphorus Magnesium 2.3 Total Bilirubin 0.3 Direct Bilirubin 0.1 AST 37 ALT 35 Alkaline Phosphatase 114 H Troponin I High Sens 49.1 H Total Protein 4.7 L Albumin 2.2 L Globulin Albumin/Globulin Ratio Procalcitonin 5.51 H Random Cortisol Cancelled Urine Osmolality Ur Random Sodium Nasal Screen MRSA (PCR) Negative SARS-CoV-2 (PCR) NEGATIVE Hep Bs Antigen Hep Bs Antibody Hep Bs Antibody, Quant Influenza Type A (PCR) Negative Influenza Type B (PCR) Negative RSV (RT-PCR) Negative Ref Lab Test Result Pending 09/22/25 09/22/25 09/22/25 11:02 14:28 15:04 WBC RBC Hgb POC Hgb 12.2 L Hct POC Hct 36 L MCV MCH MCHC RDW Std Deviation RDW Coeff of Vanessa Plt Count MPV Immature Gran % (Auto) Neut % (Auto) Lymph % (Auto) Keith % (Auto) Eos % (Auto) Baso % (Auto) Neut # (Auto) Lymph # (Auto) Keith # (Auto) Eos # (Auto) Baso # (Auto) Immature Gran # (Auto) Toxic Vacuolation Polychromasia Echinocytes PT INR APTT PTT Ratio Specimen Type Arterial Sample Site Art Line POC pH 7.18 L* POC pCO2 20 L POC pO2 67 L POC HCO3 7 L POC Total CO2 8 L* POC Base Excess -21.0 L O2 Sat Pulse Oximetry 98 ABG pH (Temp Correct) 7.177 L* ABG pCO2 (Temp Corrct 20 L POC ABG pO2 at Pt Temp 67 POC ABG O2 Sat 88.0 L Les Test NA VBG pH 7.10 L VBG pCO2 27 L VBG pO2 33 VBG HCO3 8 VBG O2 Saturation < 60.0 VBG Base Excess -19.9 O2 Delivery Device Cannula POC Sodium 122 L Sodium 122 L 122 L POC Potassium 4.8 Potassium 4.7 5.0 Chloride 97 L 98 Carbon Dioxide 10 L 8 L* Anion Gap 15 H 16 H BUN 110 H 109 H Creatinine 6.30 H* 5.39 H* D Est Cr Clr Drug Dosing 8.2 9.5 eGFR 8.20 9.89 BUN/Creatinine Ratio 17.5 20.2 H Glucose 168 H 191 H POC Glucose (other) Osmolality Lactate 1.3 Calcium 7.2 L 7.1 L Ionized Calcium Phosphorus 7.3 H Magnesium Total Bilirubin Direct Bilirubin AST ALT Alkaline Phosphatase Troponin I High Sens 22.0 H D Total Protein Albumin Globulin Albumin/Globulin Ratio Procalcitonin Random Cortisol Urine Osmolality Ur Random Sodium Nasal Screen MRSA (PCR) SARS-CoV-2 (PCR) Hep Bs Antigen Hep Bs Antibody Hep Bs Antibody, Quant Influenza Type A (PCR) Influenza Type B (PCR) RSV (RT-PCR) Ref Lab Test Result 09/22/25 09/22/25 09/22/25 15:55 17:57 19:36 WBC RBC Hgb POC Hgb Hct POC Hct MCV MCH MCHC RDW Std Deviation RDW Coeff of Vanessa Plt Count MPV Immature Gran % (Auto) Neut % (Auto) Lymph % (Auto) Keith % (Auto) Eos % (Auto) Baso % (Auto) Neut # (Auto) Lymph # (Auto) Keith # (Auto) Eos # (Auto) Baso # (Auto) Immature Gran # (Auto) Toxic Vacuolation Polychromasia Echinocytes PT INR APTT PTT Ratio Specimen Type Sample Site POC pH POC pCO2 POC pO2 POC HCO3 POC Total CO2 POC Base Excess O2 Sat Pulse Oximetry ABG pH (Temp Correct) ABG pCO2 (Temp Corrct POC ABG pO2 at Pt Temp POC ABG O2 Sat Les Test VBG pH VBG pCO2 VBG pO2 VBG HCO3 VBG O2 Saturation VBG Base Excess O2 Delivery Device POC Sodium Sodium POC Potassium Potassium Chloride Carbon Dioxide Anion Gap BUN Creatinine Est Cr Clr Drug Dosing eGFR BUN/Creatinine Ratio Glucose POC Glucose (other) 197 H Osmolality Lactate 1.0 Calcium Ionized Calcium Phosphorus Magnesium Total Bilirubin Direct Bilirubin AST ALT Alkaline Phosphatase Troponin I High Sens Total Protein Albumin Globulin Albumin/Globulin Ratio Procalcitonin Random Cortisol Urine Osmolality Ur Random Sodium Nasal Screen MRSA (PCR) SARS-CoV-2 (PCR) Hep Bs Antigen Negative Hep Bs Antibody Immune Hep Bs Antibody, Quant 76.80 Influenza Type A (PCR) Influenza Type B (PCR) RSV (RT-PCR) Ref Lab Test Result 09/22/25 09/22/25 09/22/25 20:26 23:28 Unknown WBC RBC Hgb POC Hgb Hct POC Hct MCV MCH MCHC RDW Std Deviation RDW Coeff of Vanessa Plt Count MPV Immature Gran % (Auto) Neut % (Auto) Lymph % (Auto) Keith % (Auto) Eos % (Auto) Baso % (Auto) Neut # (Auto) Lymph # (Auto) Keith # (Auto) Eos # (Auto) Baso # (Auto) Immature Gran # (Auto) Toxic Vacuolation Polychromasia Echinocytes PT INR APTT PTT Ratio Specimen Type Sample Site POC pH POC pCO2 POC pO2 POC HCO3 POC Total CO2 POC Base Excess O2 Sat Pulse Oximetry ABG pH (Temp Correct) ABG pCO2 (Temp Corrct POC ABG pO2 at Pt Temp POC ABG O2 Sat Les Test VBG pH 7.40 VBG pCO2 VBG pO2 VBG HCO3 VBG O2 Saturation VBG Base Excess O2 Delivery Device POC Sodium Sodium 129 L POC Potassium Potassium 3.9 D Chloride 97 L Carbon Dioxide 17 L Anion Gap 15 H BUN 73 H D Creatinine 4.27 H D Est Cr Clr Drug Dosing 12.0 eGFR 13.08 BUN/Creatinine Ratio 17.1 Glucose 162 H POC Glucose (other) 153 H Osmolality Lactate Calcium 7.0 L Ionized Calcium 0.95 L Phosphorus Magnesium 2.0 Total Bilirubin Direct Bilirubin AST ALT Alkaline Phosphatase Troponin I High Sens Total Protein Albumin Globulin Albumin/Globulin Ratio Procalcitonin Random Cortisol Urine Osmolality 305 L Ur Random Sodium < 10 Nasal Screen MRSA (PCR) SARS-CoV-2 (PCR) Hep Bs Antigen Hep Bs Antibody Hep Bs Antibody, Quant Influenza Type A (PCR) Influenza Type B (PCR) RSV (RT-PCR) Ref Lab Test Result 09/23/25 09/23/25 00:51 04:15 WBC 16.50 H RBC 3.77 L Hgb 12.2 L POC Hgb Hct 33.4 L POC Hct MCV 88.6 D MCH 32.4 MCHC 36.5 H RDW Std Deviation 45.3 RDW Coeff of Vanessa 14.0 Plt Count 349 MPV 9.4 Immature Gran % (Auto) 4.1 Neut % (Auto) 84.3 Lymph % (Auto) 2.3 Keith % (Auto) 8.8 Eos % (Auto) 0.0 Baso % (Auto) 0.5 Neut # (Auto) 13.90 H Lymph # (Auto) 0.38 L Keith # (Auto) 1.46 H Eos # (Auto) 0.00 Baso # (Auto) 0.09 Immature Gran # (Auto) 0.67 H Toxic Vacuolation Polychromasia 1+ Echinocytes 2+ PT INR APTT PTT Ratio Specimen Type Sample Site POC pH POC pCO2 POC pO2 POC HCO3 POC Total CO2 POC Base Excess O2 Sat Pulse Oximetry ABG pH (Temp Correct) ABG pCO2 (Temp Corrct POC ABG pO2 at Pt Temp POC ABG O2 Sat Les Test VBG pH VBG pCO2 VBG pO2 VBG HCO3 VBG O2 Saturation VBG Base Excess O2 Delivery Device POC Sodium Sodium 129 L POC Potassium Potassium 4.0 Chloride 97 L Carbon Dioxide 16 L Anion Gap 16 H BUN 77 H Creatinine 4.41 H Est Cr Clr Drug Dosing 11.7 eGFR 12.59 BUN/Creatinine Ratio 17.5 Glucose 177 H POC Glucose (other) 162 H Osmolality Lactate Calcium 7.4 L Ionized Calcium Phosphorus 6.7 H Magnesium 2.1 Total Bilirubin 0.4 Direct Bilirubin AST 46 H ALT 37 Alkaline Phosphatase 144 H Troponin I High Sens Total Protein 4.7 L Albumin 2.2 L Globulin 2.5 Albumin/Globulin Ratio 0.9 Procalcitonin Random Cortisol Urine Osmolality Ur Random Sodium Nasal Screen MRSA (PCR) SARS-CoV-2 (PCR) Hep Bs Antigen Hep Bs Antibody Hep Bs Antibody, Quant Influenza Type A (PCR) Influenza Type B (PCR) RSV (RT-PCR) Ref Lab Test Result PG Care Time/CCT Total # of Minutes Spent Total Time Spent with Patient: 50 minutes provided to review progress notes, surgical recommendations, laboratory studies, interview and examine patient, discussed plan of care with patient and family, discussed medical management with ICU team, placed dialysis orders and coordinate treatment with on-call HD RN, order laboratory studies for am, update medical record. Coding Level of Care Code 11336 SUB INP/OBS CARE 3/50MIN Diagnoses Acute renal failure N17.9 Lactic acid acidosis E87.20 C. difficile colitis A04.72 Pancolitis K52.9 Septic shock A41.9; R65.21
--- NOTE | 2025-09-23 08:36 | Surgery Progress Note ---
Date of Service September 23, 2025 Assessment & Plan (1) Pancolitis: Plan: seems to be responding no surgical intervention needed at this time supportive care Admission and Anticipated Discharge Date Admission Date: September 22, 2025 Subjective patient without complaints of pain distended feeding tube in place Review of Systems Constitutional: no fever and no chills Respiratory: no dyspnea Cardiovascular: no chest pain Gastrointestinal: + change in bowel habits; no abdominal p ain, no nausea and no vomiting Neurologic: no localized weakness and no generalized weakness Psychiatric: no behavioral changes Physical Exam Constitutional: WD/WN, vitals as above Eyes: no scleral abnormality Respiratory: normal respiratory effort, lungs clear to auscultation Cardiovascular: Rate/Rhythm: + tachycardic and + irregularly irregular Gastrointestinal (Abdomen): Inspection/Auscultation: abdomen normal to inspection, + abdomen distended and normal bowel sounds Percussion/Palpation: abdomen soft; abdomen nontender Musculoskeletal: Head/Neck/Chest: normocephalic and head atraumatic Results & Data Vital Signs (Past 12 Hours) Vital Signs Temp Pulse Pulse Resp BP BP Pulse Ox 09/23/25 06:30 98/65 L 09/23/25 06:30 118 H 18 100 09/23/25 06:15 118 H 21 100 09/23/25 06:00 117 H 19 100 09/23/25 06:00 116/64 09/23/25 05:45 118 H 22 100 09/23/25 05:30 116/72 09/23/25 05:30 120 H 20 100 09/23/25 05:15 100 09/23/25 05:00 123 H 25 H 100 09/23/25 04:45 123 H 26 H 100 09/23/25 04:30 121 H 23 100 09/23/25 04:30 114/72 09/23/25 04:15 123 H 14 100 09/23/25 04:00 108/59 L 09/23/25 04:00 122 H 20 100 09/23/25 03:45 138 H 24 100 09/23/25 03:31 114/65 09/23/25 03:30 132 H 27 H 100 09/23/25 03:16 95/59 L 09/23/25 03:15 130 H 26 H 100 09/23/25 03:11 36.8 C 09/23/25 03:00 123 H 20 100 12/26/25 02:45 126 H 22 100 09/23/25 02:30 128 H 27 H 100 09/23/25 02:15 138 H 22 100 09/23/25 02:00 149 H 20 100 09/23/25 01:45 135 H 24 100 09/23/25 01:30 133 H 28 H 95 09/23/25 01:29 125 H 09/23/25 01:15 142 H 23 100 09/23/25 01:00 120 H 19 98 09/23/25 00:45 122 H 21 100 09/23/25 00:30 121 H 20 99 09/23/25 00:15 122 H 18 100 09/23/25 00:00 133 H 21 85 L 09/22/25 23:52 37.1 C 09/22/25 23:45 132 H 27 H 100 09/22/25 23:30 122 H 27 H 98 09/22/25 23:15 121 H 25 H 100 09/22/25 23:00 123 H 25 H 100 09/22/25 22:45 134 H 23 99 09/22/25 22:30 128 H 24 94 09/22/25 22:15 124 H 26 H 98 09/22/25 22:00 35.6 C L 123 H 29 H 100 09/22/25 21:55 37.3 C 123 H 139/48 L 09/22/25 21:45 36.5 C 123 H 29 H 99 09/22/25 21:30 09/22/25 21:30 36.4 C L 124 H 24 99 09/22/25 21:30 124 H 104/41 L 09/22/25 21:15 36.4 C L 124 H 27 H 99 09/22/25 21:15 124 H 112/43 L 09/22/25 21:00 36.7 C 123 H 30 H 92 09/22/25 21:00 123 H 119/46 L 09/22/25 20:45 36.8 C 124 H 22 100 09/22/25 20:45 123 H 123/45 L O2 Del Method O2 Flow Rate 09/23/25 06:30 09/23/25 06:30 09/23/25 06:15 09/23/25 06:00 09/23/25 06:00 09/23/25 05:45 09/23/25 05:30 09/23/25 05:30 09/23/25 05:15 09/23/25 05:00 09/23/25 04:45 09/23/25 04:30 09/23/25 04:30 09/23/25 04:15 09/23/25 04:00 09/23/25 04:00 09/23/25 03:45 09/23/25 03:31 09/23/25 03:30 09/23/25 03:16 09/23/25 03:15 09/23/25 03:11 09/23/25 03:00 09/23/25 02:45 09/23/25 02:30 09/23/25 02:15 09/23/25 02:00 09/23/25 01:45 09/23/25 01:30 09/23/25 01:29 09/23/25 01:15 09/23/25 01:00 09/23/25 00:45 09/23/25 00:30 09/23/25 00:15 09/23/25 00:00 09/22/25 23:52 09/22/25 23:45 09/22/25 23:30 09/22/25 23:15 09/22/25 23:00 09/22/25 22:45 09/22/25 22:30 09/22/25 22:15 09/22/25 22:00 09/22/25 21:55 09/22/25 21:45 09/22/25 21:30 Nasal Cannula 4 09/22/25 21:30 09/22/25 21:30 09/22/25 21:15 09/22/25 21:15 09/22/25 21:00 09/22/25 21:00 09/22/25 20:45 09/22/25 20:45
--- NOTE | 2025-09-23 08:42 | Critical Care Progress Note ---
Date of Service September 23, 2025 Assessment & Plan (1) Septic shock: (2) Pancolitis: (3) C. 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 He was treated with Rocephin and Zithromax (completed 5 days) and discharged with cefuroxime to complete 5 days. The patient was also discharged at that time with oxygen and followed up with his fish cutting machine operator. The patient had developed diarrhea in the outpatient setting and was diagnosed with C. difficile in the outpatient setting approximately 2 days prior to presenting to our facility and started on Dificid which he believes helped his symptoms and his diarrhea started slowing down. Today the patient had worsening weakness and shortness of breath. He took all of his home medications as prescribed including his antihypertensives prior to presenting to the hospital. On presentation he was hypoxic with a saturation of 84%. Abdomen was distended but not tender. The patient was significantly hypotensive and was administered 3 L of crystalloid fluid resuscitation with minimal improvement in his blood pressure therefore norepinephrine was started peripherally and he received 200 mg of hydrocortisone. Admission labs were significant for acute renal failure, severe metabolic acidosis, leukocytosis, hyponatremia and lactic acidosis. Imaging of the chest abdomen pelvis showed a right sided pneumonia, right pleural effusion, fluid filled esophagus. Pancolitis with ascites, no abscess or free air was appreciated. Reason Critically Ill: Refractory shock with multiorgan dysfunction, likely septic Atrial fibrillation with RVR Pancolitis with C. difficile Acute renal failure, status post HD cath 09/22/2025 Anion gap metabolic acidosis lactic acidosis (resolved) Hyponatremia Hypoxic respiratory failure Pneumonia (improved from last CT scan) Pleural effusion (small to moderate on bedside ultrasound) Neuro: Awake and alert, no deficits at this time. Cardiac: Refractory shock with multiorgan dysfunction [id number] ultrasound showing hyperdynamic LV, grossly preserved EF. IVC dilated. Received 200 hydrocortisone in ER on arrival. Status post 4 L crystalloid for volume resuscitation. Central venous catheter and left IJ (09/22/2025) Right radial arterial line and left radial artery (09/22/2025) Went into A-fib RVR 09/23/2025 Will continue hydrocortisone 50 mg every 6 hours Received crystalloid resuscitation, most recent 1 L bolus did not improve blood pressure or hemodynamics. Continue norepinephrine, vasopressin. Started on amiodarone this morning due to A-fib RVR. Looks like he is trying to break back into sinus rhythm. No history of arrhythmias. No anticoagulation indicated at this time. Respiratory: Acute on chronic hypoxic respiratory failure Pleural effusion Underlying COPD Pneumonia versus atelectasis on CT imaging [id number] ultrasound showing B-lines bilaterally, small effusion on the right. Continue oxygen, goal saturation approximately 90%. [facility] CT imaging was reviewed, looks like pneumonia is resolving, mostly just pleural effusion and atelectasis appreciated. Will stop Rocephin. GI: Pancolitis with C. difficile Ascites Recent C. difficile infection treated outpatient, CT showing pancolitis, also distal small bowel affected, ascites is present. Receiving IV Flagyl, p.o. and AL vancomycin. General Surgery consulted, they are following, no immediate indication for surgery. Will monitor with serial abdominal exams. If patient has worsening abdominal pain or rapid deterioration he may require repeat imaging of the abdomen. RENAL/LYTES: Acute renal failure Hyponatremia Anion gap metabolic acidosis with lactic acidosis Received crystalloid resuscitation with normal saline and LR, sodium remains low in the low 120s. Urine output has not picked up after fluid resuscitation and vasopressor support. Metabolic acidosis improving with dialysis. Bicarb infusion stopped 09/22/2025. CT abdomen did not show evidence of hydronephrosis. Keep Ledbetter catheter in place. Nephrology is consulted. HD catheter placed 09/22/2025. Received HD 09/22/2025, receiving again today. : Ledbetter catheter in place. Making some urine. Continue to monitor. ENDO: Type 2 diabetes Hypothyroidism Monitor blood glucose. Acceptable at this time. May require sliding scale given underlying diabetes and steroid dosing. On Synthroid. On stress dose steroids with hydrocortisone. HEME: Leukocytosis, anemia CBC daily. No evidence of DIC at this time. ID: C. difficile infection with pancolitis Pneumonia (recently treated, resolving on CT) Continue Flagyl IV, p.o. and AL vancomycin Will stop Rocephin. Feeding: NPO Fluids: bicab with water Analgesia: none Activity: bedrest Thromboprophylaxis: heparin Ulcer prophylaxis: pantoprazole Glycemic control: none at this time, may require SSI Bowels: None Indwelling catheters: Ledbetter, Dobbhoff nasogastric feeding tube, FMS, left IJ central venous catheter (inserted 09/22/2025), left radial arterial line (inserted 09/22/2025), right IJ HD catheter (inserted 09/22/2025) Antibiotics: Flagyl IV, p.o. and AL vancomycin Plan: Patient will remain in the ICU. Remains in critical condition with multiorgan dysfunction and refractory shock. Getting another round of dialysis today. Continue antibiotics with Flagyl and p.o./AL vancomycin. Continue norepinephrine and vasopressin. Continue stress dose steroids. We will repeat labs after dialysis and later this evening. He is off the bicarb infusion however this may need to be resumed if acidosis is worsening. Will repeat procalcitonin in the morning. I have personally spent 55 minutes of critical care time in the direct management of this patient. This is a life/limb threatening event. This includes time spent evaluating patient, direct bedside care, chart review, placing orders, interpretation of diagnostic studies, discussion with consultants, patient, and family members, as well as other required patient management activities. This time is exclusive of all separately billable procedures, and teaching time and separate from and in addition to any other critical care service time. Admission and Anticipated Discharge Date Admission Date: September 22, 2025 Subjective Past 24-hour events: Admitted to the ICU yesterday for shock. On multiple pressors and stress dose steroids. Worsening renal failure and acidosis. Had central venous catheter, arterial line and hemodialysis catheter placed. Underwent 1 session of dialysis. Nephrology and general surgery were consulted. Rounding: Patient is in good spirits this morning. Awake and alert. No complaints at this time. Flipped into A-fib RVR this morning. Calcium was ordered for electrolyte replacement. Amiodarone infusion with bolus was ordered. Patient looks like he is trying to flip back into sinus rhythm at this point. Still requiring norepinephrine and vasopressin. Some swelling in his right arm today. Not painful. Not red. Near a peripheral IV on his forearm. Looks like it just infiltrated. The IV is not being used at this time. Not sure what went through it. We removed it and placed warm compresses. Still not having any abdominal pain. Abdomen is less distended on my examination. Bowel sounds are sluggish. Family remained at bedside. Were updated on plan of care. All questions addressed. Nephrology were at bedside, they plan for another session of dialysis today. Intake/output: Intake: 5879 mL Output: 270 mL Net: +5609 mL Mechanical ventilation: None, on nasal cannula Feeding: NPO IV infusions: 150 mill equivalents bicarb with water, norepinephrine, vasopressin Indwelling catheters: Left IJ central venous catheter, right IJ HD catheter, left radial arterial line, Ledbetter catheter, FMS, Dobbhoff nasogastric tube. Laboratory: CBC: WBC 16.5, hemoglobin 12.2, platelet 349 Chemistry: sodium 129, potassium 4.0, chloride 97, bicarb 16, anion gap 16, BUN 77, creatinine 4.41, glucose 177, calcium 7.4 (replaced, Ca x Phos less than 55 this morning), phosphorus 6.7, AST 46, ALT 37 ABG: None Review of Systems Review of Systems: Negative except as in HPI. Physical Exam Physical Exam: Physical examination: General: Appears ill, resting in bed, on nasal cannula, moderate distress. HEENT: Mucous membranes are dry. Sclera are nonicteric. Extraocular movements intact. No JVD appreciated. Skin: Warm and dry. No jaundice or bruising appreciated. Cardiovascular: A-fib RVR, rate is getting better on amiodarone. Still on press ors. No murmurs appreciated on my exam. Starting to develop some lower extremity edema. Lungs: Mildly tachypneic, on nasal cannula, coarse breath sounds with crackles. Abdomen: Significantly distended and protuberant. No tenderness to deep palpation. No bruising. Musculoskeletal: Some soft tissue swelling appreciated in the right forearm. Likely IV infiltrate. IV was removed. Neurologic: Awake and alert, oriented. CN II through XII are grossly intact. Speech is fluent. Nonfocal exam. Psychiatric: Appropriate cooperative during my exam. Results & Data Results & Data Vital Signs (Past 12 Hours) Vital Signs Temp Pulse Pulse Resp BP BP Pulse Ox 09/23/25 06:30 98/65 L 09/23/25 06:30 118 H 18 100 09/23/25 06:15 118 H 21 100 09/23/25 06:00 117 H 19 100 09/23/25 06:00 116/64 09/23/25 05:45 118 H 22 100 09/23/25 05:30 116/72 09/23/25 05:30 120 H 20 100 09/23/25 05:15 100 09/23/25 05:00 123 H 25 H 100 09/23/25 04:45 123 H 26 H 100 09/23/25 04:30 121 H 23 100 09/23/25 04:30 114/72 09/23/25 04:15 123 H 14 100 09/23/25 04:00 108/59 L 09/23/25 04:00 122 H 20 100 09/23/25 03:45 138 H 24 100 09/23/25 03:31 114/65 09/23/25 03:30 132 H 27 H 100 09/23/25 03:16 95/59 L 09/23/25 03:15 130 H 26 H 100 09/23/25 03:11 36.8 C 09/23/25 03:00 123 H 20 100 09/23/25 02:45 126 H 22 100 09/23/25 02:30 128 H 27 H 100 09/23/25 02:15 138 H 22 100 09/23/25 02:00 149 H 20 100 09/23/25 01:45 135 H 24 100 09/23/25 01:30 133 H 28 H 95 09/23/25 01:29 125 H 09/23/25 01:15 142 H 23 100 09/23/25 01:00 120 H 19 98 09/23/25 00:45 122 H 21 100 09/23/25 00:30 121 H 20 99 09/23/25 00:15 122 H 18 100 09/23/25 00:00 133 H 21 85 L 09/22/25 23:52 37.1 C 09/22/25 23:45 132 H 27 H 100 09/22/25 23:30 122 H 27 H 98 09/22/25 23:15 121 H 25 H 100 09/22/25 23:00 123 H 25 H 100 09/22/25 22:45 134 H 23 99 09/22/25 22:30 128 H 24 94 09/22/25 22:15 124 H 26 H 98 09/22/25 22:00 35.6 C L 123 H 29 H 100 09/22/25 21:55 37.3 C 123 H 139/48 L 09/22/25 21:45 36.5 C 123 H 29 H 99 09/22/25 21:30 09/22/25 21:30 36.4 C L 124 H 24 99 09/22/25 21:30 124 H 104/41 L 09/22/25 21:15 36.4 C L 124 H 27 H 99 09/22/25 21:15 124 H 112/43 L 09/22/25 21:00 36.7 C 123 H 30 H 92 09/22/25 21:00 123 H 119/46 L 09/22/25 20:45 36.8 C 124 H 22 100 09/22/25 20:45 123 H 123/45 L O2 Del Method O2 Flow Rate 09/23/25 06:30 09/23/25 06:30 09/23/25 06:15 09/23/25 06:00 09/23/25 06:00 09/23/25 05:45 09/23/25 05:30 09/23/25 05:30 09/23/25 05:15 09/23/25 05:00 09/23/25 04:45 09/23/25 04:30 09/23/25 04:30 09/23/25 04:15 09/23/25 04:00 09/23/25 04:00 09/23/25 03:45 09/23/25 03:31 09/23/25 03:30 09/23/25 03:16 09/23/25 03:15 09/23/25 03:11 09/23/25 03:00 09/23/25 02:45 09/23/25 02:30 09/23/25 02:15 09/23/25 02:00 09/23/25 01:45 09/23/25 01:30 09/23/25 01:29 09/23/25 01:15 09/23/25 01:00 09/23/25 00:45 09/23/25 00:30 09/23/25 00:15 09/23/25 00:00 09/22/25 23:52 09/22/25 23:45 09/22/25 23:30 09/22/25 23:15 09/22/25 23:00 09/22/25 22:45 09/22/25 22:30 09/22/25 22:15 09/22/25 22:00 09/22/25 21:55 09/22/25 21:45 09/22/25 21:30 Nasal Cannula 4 09/22/25 21:30 09/22/25 21:30 09/22/25 21:15 09/22/25 21:15 09/22/25 21:00 09/22/25 21:00 09/22/25 20:45 09/22/25 20:45 Coding Level of Care Code 30511 CRITICAL CARE 1ST 30-74M Diagnoses Septic shock A41.9; R65.21 Pancolitis K52.9 C. difficile colitis A04.72 Acute renal failure N17.9 Acute hypoxic respiratory failure J96.01 Pneumonia J18.9 Acute hyponatremia E87.1 Metabolic acidosis E87.20 Lactic acid acidosis E87.20 Pleural effusion J90 COPD (chronic obstructive pulmonary disease) J44.9
--- NOTE | 2025-09-23 10:30 | Hospitalist Progress Note ---
Date of Service September 23, 2025 Assessment & Plan (1) Septic shock: Plan: Secondary to c. diff pancolitis s/p 3L NSS with MAP, ongoing maintenance fluids per ICU Levophed, stop all antihypertensives, aim MAP > 65 Vancomycin 500mg PO q6h + Metronidazole 500mg IV q8h (2) Acute renal failure: Plan: -BEAN 2nd to septic shock -HD as pre-neprology (3) Atrial fibrillation with RVR: Plan: -amiodarone started -anticoagulation held (4) Acute hypoxic respiratory failure: Plan: Baseline: 2LPM O2 at rest, 4LPM O2 on exertion Requiring 4LPM O2 at rest on admission with accessory muscle use and wheezing on exam - consider routine duonebs (deferred to ICU team) Likely exacerbation due to acute illness but also residual consolidation changes and pleural effusion from recent pneumonia - likely to get worse with IV fluids Aim O2 sats 88-92% Continue maintenance inhaler Incentive spirometry (5) Hx of gastric ulcer: Plan: -protonix Plan 84 year old male presents with progressive weakness, diarrhea and shortness of breath. Diagnosed with c. diff as outpatient 2 days prior to admission, started Dificid day prior to admission. Took his usual medications including antihypertensives day of admission. VTE Prophylaxis - heparin 5000 units SQ BID Disposition - admit to ICU Admission and Anticipated Discharge Date Admission Date: September 22, 2025 Subjective Pt still on pressor support overnight. He is awake and alert. Review of Systems Review of Systems: CONST: Negative for fever, body aches and chills. HENT: Negative for neck pain/stiffness, headache, congestion, sore throat, swelling. EYES: Negative for discharge/pain or vision changes. RESP: Negative for cough/hemoptysis and shortness of breath. CV: Negative chest pain, difficulty breathing, palpitations. ABD: Negative pain, nausea, vomiting. : Negative increase frequency, dysuria, blood in urine or stool. MUSC: Negative for muscle aches, edema. SKIN: Negative rash, lesions/sores. NEURO: Negative headache, dizziness, weakness. Physical Exam Physical Exam: GENERAL APPEARANCE NAD, activity normal for age, well developed/ well nourished, no cyanosis, pallor, or diaphoresis. EYES lids/conjunctiva normal. EARS/NOSE/THROAT Mucous membranes moist, nares normal, lips/teeth normal uvula midline without oral pharyngeal erythema, exudate or swelling TMs normal bilaterally. No lymphangitis/lymphedema. HEAD/NECK normocephalic atraumatic, no facial trauma, neck is supple. RESPIRATORY respiratory effort normal, speaks in full sentences, no tripod position, no accessory muscle use. Lungs clear to auscultation without rhonchi, wheezes, rales CARDIAC Regular rate and rhythm, no edema. ABDOMINAL Soft, ND/NT. No evidence of fluid wave. No pulsatile masses on exam, rebound tenderness, Yung sign or pain over Mcburney's point. MUSCLES/EXTREMITIES No abnormal range of motion, no swelling. SKIN Warm, pink and dry. No rashes, dermatoses, petechiae or lesions. NEUROLOGICAL Speech is clear and appropriate. Normal level of consciousness. Gait and coordination are normal. 5/5 strength in all extremities. PSYCH Normal mood and affect. Judgement/competence is appropriate Results & Data Results & Data Vital Signs (Past 12 Hours) Vital Signs Temp Pulse Resp BP Pulse Ox 09/23/25 06:30 98/65 L 09/23/25 06:30 118 H 18 100 09/23/25 06:15 118 H 21 100 09/23/25 06:00 117 H 19 100 09/23/25 06:00 116/64 09/23/25 05:45 118 H 22 100 09/23/25 05:30 116/72 09/23/25 05:30 120 H 20 100 09/23/25 05:15 100 09/23/25 05:00 123 H 25 H 100 09/23/25 04:45 123 H 26 H 100 09/23/25 04:30 121 H 23 100 09/23/25 04:30 114/72 09/23/25 04:15 123 H 14 100 09/23/25 04:00 108/59 L 09/23/25 04:00 122 H 20 100 09/23/25 03:45 138 H 24 100 09/23/25 03:31 114/65 09/23/25 03:30 132 H 27 H 100 09/23/25 03:16 95/59 L 09/23/25 03:15 130 H 26 H 100 09/23/25 03:11 36.8 C 09/23/25 03:00 123 H 20 100 09/23/25 02:45 126 H 22 100 09/23/25 02:30 128 H 27 H 100 09/23/25 02:15 138 H 22 100 09/23/25 02:00 149 H 20 100 09/23/25 01:45 135 H 24 100 09/23/25 01:30 133 H 28 H 95 09/23/25 01:29 125 H 09/23/25 01:15 142 H 23 100 09/23/25 01:00 120 H 19 98 09/23/25 00:45 122 H 21 100 09/23/25 00:30 121 H 20 99 09/23/25 00:15 122 H 18 100 09/23/25 00:00 133 H 21 85 L 09/22/25 23:52 37.1 C 09/22/25 23:45 132 H 27 H 100 09/22/25 23:30 122 H 27 H 98 09/22/25 23:15 121 H 25 H 100 09/22/25 23:00 123 H 25 H 100 09/22/25 22:45 134 H 23 99 09/22/25 22:30 128 H 24 94 PG Care Time/CCT Total # of Minutes Spent Total Time Spent with Patient: Total time spent is greater than 50% in coordination of care (as documented) at patient's floor/unit and/or counseling patient: Coding Level of Care Code 33419 SUB INP/OBS CARE 2/35MIN Diagnoses Septic shock A41.9; R65.21 Acute renal failure N17.9 Atrial fibrillation with RVR I48.91 Acute hypoxic respiratory failure J96.01 Hx of gastric ulcer Z87.11
[2025-09-23] MEDS: HEPARIN SOD (PORCINE) 1000 UNIT/ML IV ONE (10:45)
[2025-09-23] MEDS: HEPARIN SOD (PORCINE) 1000 UNIT/ML IV SCH (12:04)
--- NOTE | 2025-09-23 13:41 | Electrocardiogram Report ---
Test Reason : Blood Pressure : */* mmHG Vent. Rate : 90 BPM Atrial Rate : 96 BPM P-R Int : * ms QRS Dur : 94 ms QT Int : 384 ms P-R-T Axes : * 59 66 degrees QTcB Int : 469 ms Sinus rhythm with a blocked PAC Low voltage QRS Borderline ECG Confirmed by Isaac Marx [id number] on 09/23/2025 1:41:01 PM Referred By: REFERRED SELF Confirmed By: Isaac Marx
[2025-09-23 13:52] LABS: Creatine Kinase 207.0 U/L (30-223)
--- NOTE | 2025-09-23 13:52 | Electrocardiogram Report ---
Test Reason : Blood Pressure : */* mmHG Vent. Rate : 140 BPM Atrial Rate : * BPM P-R Int : * ms QRS Dur : 106 ms QT Int : 342 ms P-R-T Axes : * 46 54 degrees QTcB Int : 522 ms Atrial fibrillation with rapid ventricular response with premature ventricular or aberrantly conducte d complexes Abnormal ECG Confirmed by Isaac Marx ([id number] on 09/23/2025 1:51:47 PM Referred By: REFERRED SELF Confirmed By: Isaac Marx
[2025-09-23] MEDS: AMIODARONE / D5W 360 MG/200 ML BAG IV SCH (13:57)
[2025-09-23 14:23] LABS: Anion Gap 11.0 (3-11); Blood Urea Nitrogen 36.0 mg/dl (6-23); Calcium 7.4 mg/dl (8.6-10.3); Carbon Dioxide 24.0 mmol/L (21-32); Chloride 99.0 mmol/L (98-107); Creatinine Clr Calc Pharmacy 18.1 ml/min; Glucose 164.0 mg/dl (70-99(Fasting)); Potassium 3.7 mmol/L (3.5-5.1); Sodium 134.0 mmol/L (136-145)
[2025-09-23 20:35] LABS: Anion Gap 11.0 (3-11); Blood Urea Nitrogen 44.0 mg/dl (6-23); Calcium 7.3 mg/dl (8.6-10.3); Carbon Dioxide 22.0 mmol/L (21-32); Chloride 100.0 mmol/L (98-107); Creatinine Clr Calc Pharmacy 14.2 ml/min; Glucose 189.0 mg/dl (70-99(Fasting)); Potassium 3.9 mmol/L (3.5-5.1); Sodium 133.0 mmol/L (136-145)
[2025-09-24 05:39] LABS: Hematocrit (blood only) 33.3 % (42.0-52.0); Hemoglobin 12.0 g/dL (14.0-18.0); Immature Granulocytes # (auto) 0.39 K/uL (0.01-0.20); Immature Granulocytes % (auto) 3.3 %; Mean Corpuscular Hemoglobin 32.8 pg (25.0-34.0); Mean Corpuscular Volume 91.0 fL (80.0-100.0); Platelet Count 296 K/uL (130-400); RDW Standard Deviation 47.8 fL (36.4-46.3); Red Blood Count 3.66 M/uL (4.70-6.10); White Blood Count 11.79 K/ul (4.8-10.8)
[2025-09-24 05:59] LABS: Alanine Aminotransferase 28.0 U/L (7-52); Albumin Globulin Ratio 1.0 (0.9-2); Albumin Level 2.2 gm/dl (3.4-5.0); Alkaline Phosphatase 105.0 U/L (34-104); Anion Gap 15.0 (3-11); Bilirubin,Total 0.3 mg/dl (0.2-1.0); Blood Urea Nitrogen 54.0 mg/dl (6-23); Calcium 7.0 mg/dl (8.6-10.3); Carbon Dioxide 21.0 mmol/L (21-32); Chloride 98.0 mmol/L (98-107); Creatinine Clr Calc Pharmacy 12.8 ml/min; Globulin 2.2 gm/dl (2.5-4.0); Glucose 203.0 mg/dl (70-99(Fasting)); Magnesium 2.0 mg/dl (1.7-2.4); Potassium 3.8 mmol/L (3.5-5.1); Sodium 134.0 mmol/L (136-145); Total Protein 4.4 gm/dl (6.0-8.3)
--- NOTE | 2025-09-24 09:58 | Hospitalist Progress Note ---
Date of Service September 24, 2025 Assessment & Plan (1) Septic shock: Plan: Secondary to c. diff pancolitis s/p 3L NSS with MAP, ongoing maintenance fluids per ICU Levophed, stop all antihypertensives, aim MAP > 65 Vancomycin 500mg PO q6h + Metronidazole 500mg IV q8h Surgery consult appreciated-con't medical management Critical care following (2) Acute renal failure: Plan: -BEAN 2nd to septic shock -Nephrology following (3) Atrial fibrillation with RVR: Plan: -amiodarone started -anticoagulation held (4) Acute hypoxic respiratory failure: Plan: Baseline: 2LPM O2 at rest, 4LPM O2 on exertion Requiring 4LPM O2 at rest on admission with accessory muscle use and wheezing on exam - consider routine duonebs (deferred to ICU team) Likely exacerbation due to acute illness but also residual consolidation changes and pleural effusion from recent pneumonia - likely to get worse with IV fluids Aim O2 sats 88-92% Continue maintenance inhaler Incentive spirometry (5) Hx of gastric ulcer: Plan: -protonix Plan 84 year old male presents with progressive weakness, diarrhea and shortness of breath. Diagnosed with c. diff as outpatient 2 days prior to admission, started Dificid day prior to admission. Took his usual medications including antihypertensives day of admission. VTE Prophylaxis - heparin 5000 units SQ BID Disposition - admit to ICU Admission and Anticipated Discharge Date Admission Date: September 22, 2025 Subjective Pt still on pressor support, resting comfortably in bed. No events overnight. Review of Systems Review of Systems: CONST: Negative for fever, body aches and chills. HENT: Negative for neck pain/stiffness, headache, congestion, sore throat, swelling. EYES: Negative for discharge/pain or vision changes. RESP: Negative for cough/hemoptysis and shortness of breath. CV: Negative chest pain, difficulty breathing, palpitations. ABD: Negative pain, nausea, vomiting. : Negative increase frequency, dysuria, blood in urine or stool. MUSC: Negative for muscle aches, edema. SKIN: Negative rash, lesions/sores. NEURO: Negative headache, dizziness, weakness. Physical Exam Physical Exam: GENERAL APPEARANCE NAD, activity normal for age, well developed/ well nourished, no cyanosis, pallor, or diaphoresis. EYES lids/conjunctiva normal. EARS/NOSE/THROAT Mucous membranes moist, nares normal, lips/teeth normal uvula midline without oral pharyngeal erythema, exudate or swelling TMs normal bilaterally. No lymphangitis/lymphedema. HEAD/NECK normocephalic atraumatic, no facial trauma, neck is supple. RESPIRATORY respiratory effort normal, speaks in full sentences, no tripod position, no accessory muscle use. Lungs clear to auscultation without rhonchi, wheezes, rales CARDIAC Regular rate and rhythm, no edema. ABDOMINAL Soft, ND/NT. No evidence of fluid wave. No pulsatile masses on exam, rebound tenderness, Yung sign or pain over Mcburney's point. MUSCLES/EXTREMITIES No abnormal range of motion, no swelling. SKIN Warm, pink and dry. No rashes, dermatoses, petechiae or lesions. NEUROLOGICAL Speech is clear and appropriate. Normal level of consciousness. Gait and coordination are normal. 5/5 strength in all extremities. PSYCH Normal mood and affect. Judgement/competence is appropriate Results & Data Results & Data Vital Signs (Past 12 Hours) Vital Signs Pulse Resp BP Pulse Ox 09/24/25 05:30 105 H 21 96 09/24/25 05:15 106 H 21 96 09/24/25 05:00 103 H 17 97 09/24/25 05:00 118/70 09/24/25 05:00 118/70 09/24/25 05:00 118/70 09/24/25 05:00 118/70 09/24/25 05:00 118/70 09/24/25 04:45 103 H 18 96 09/24/25 04:30 105 H 21 94 09/24/25 04:15 106 H 23 96 09/24/25 04:00 102 H 17 97 09/24/25 04:00 118/68 09/24/25 04:00 118/68 09/24/25 04:00 118/68 09/24/25 04:00 118/68 09/24/25 04:00 118/68 09/24/25 03:45 105 H 21 95 09/24/25 03:30 104 H 19 96 09/24/25 03:15 105 H 21 93 09/24/25 03:00 107 H 23 95 09/24/25 03:00 130/71 09/24/25 03:00 130/71 09/24/25 03:00 130/71 09/24/25 03:00 130/71 09/24/25 03:00 130/71 09/24/25 02:45 106 H 17 92 09/24/25 02:30 112 H 19 94 09/24/25 02:15 117 H 20 94 09/24/25 02:00 122 H 24 92 09/24/25 02:00 117/73 09/24/25 02:00 117/73 09/24/25 02:00 117/73 09/24/25 01:45 106 H 19 94 09/24/25 01:30 110 H 33 H 74 L 09/24/25 01:15 106 H 21 94 09/24/25 01:00 107 H 18 93 09/24/25 01:00 122/72 09/24/25 00:53 143/74 H 09/24/25 00:51 107 H 22 91 09/24/25 00:15 108 H 09/24/25 00:00 111/63 09/24/25 00:00 111/63 09/24/25 00:00 111/63 09/24/25 00:00 111/63 09/24/25 00:00 111/63 09/24/25 00:00 127 H 18 89 L 09/23/25 23:49 102/63 09/23/25 23:49 102/63 09/23/25 23:49 102/63 09/23/25 23:49 102/63 09/23/25 23:49 102/63 09/23/25 23:48 105 H 21 91 09/23/25 23:45 116 H 19 89 L 09/23/25 23:30 103 H 20 93 09/23/25 23:15 125 H 21 91 09/23/25 23:05 112/71 09/23/25 23:05 112/71 09/23/25 23:05 112/71 09/23/25 23:05 112/71 09/23/25 23:05 112/71 09/23/25 23:03 120 H 25 H 91 09/23/25 23:00 125 H 20 86 L 09/23/25 22:45 111 H 21 94 09/23/25 22:30 103 H 19 90 09/23/25 22:15 107 H 18 93 09/23/25 22:00 117 H 21 93 PG Care Time/CCT Total # of Minutes Spent Total Time Spent with Patient: Total time spent is greater than 50% in coordination of care (as documented) at patient's floor/unit and/or counseling patient: Coding Level of Care Code 96311 SUB INP/OBS CARE 2/35MIN Diagnoses Septic shock A41.9; R65.21 Acute renal failure N17.9 Atrial fibrillation with RVR I48.91 Acute hypoxic respiratory failure J96.01 Hx of gastric ulcer Z87.11
--- NOTE | 2025-09-24 10:04 | XRay Report ---
KUB HISTORY: abd dist COMPARISON STUDY: 09/22/2025 FINDINGS: Interval feeding tube tip is likely the distal stomach. There is gaseous distention of the small bowel and the colon measuring up to 9 cm at the colon and 3 cm at the small bowel, stable. No g ross free air seen. IMPRESSION: Stable exam. ACT 112: Negative or not required by law. The above report was generated using voice recognition software. It may contain grammatical, syntax o r spelling errors. Electronically signed by: Ori Sol M.D. 09/24/2025 10:02 AM
--- NOTE | 2025-09-24 10:32 | Critical Care Progress Note ---
Date of Service September 24, 2025 Assessment & Plan (1) Septic shock: (2) Pancolitis: (3) C. 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 He was treated with Rocephin and Zithromax (completed 5 days) and discharged with cefuroxime to complete 5 days. The patient was also discharged at that time with oxygen and followed up with his recovery coordinator. The patient had developed diarrhea in the outpatient setting and was diagnosed with C. difficile in the outpatient setting approximately 2 days prior to presenting to our facility and started on Dificid which he believes helped his symptoms and his diarrhea started slowing down. Today the patient had worsening weakness and shortness of breath. He took all of his home medications as prescribed including his antihypertensives prior to presenting to the hospital. On presentation he was hypoxic with a saturation of 84%. Abdomen was distended but not tender. The patient was significantly hypotensive and was administered 3 L of crystalloid fluid resuscitation with minimal improvement in his blood pressure therefore norepinephrine was started peripherally and he received 200 mg of hydrocortisone. Admission labs were significant for acute renal failure, severe metabolic acidosis, leukocytosis, hyponatremia and lactic acidosis. Imaging of the chest abdomen pelvis showed a right sided pneumonia, right pleural effusion, fluid filled esophagus. Pancolitis with ascites, no abscess or free air was appreciated. Reason Critically Ill: Refractory shock with multiorgan dysfunction, likely septic Atrial fibrillation with RVR Pancolitis with C. difficile Acute renal failure, status post HD cath 09/22/2025 Anion gap metabolic acidosis lactic acidosis (resolved) Hyponatremia Hypoxic respiratory failure Pleural effusion (small to moderate on bedside ultrasound) Neuro: Awake and alert, no deficits at this time. Cardiac: Refractory shock with multiorgan dysfunction [id number] ultrasound showing hyperdynamic LV, grossly preserved EF. IVC dilated. Received 200 hydrocortisone in ER on arrival. Status post 4 L crystalloid for volume resuscitation. Central venous catheter and left IJ (09/22/2025) Right radial arterial line and left radial artery (09/22/2025) Went into A-fib RVR 09/23/2025 Will continue hydrocortisone 50 mg every 6 hours, once he is off vasopressors then we will start weaning this off. Continue norepinephrine, vasopressin is weaned off. Goal MAP 65. We will continue amiodarone, it will finish at 1 PM. Likely just induced due to sepsis. He does not have a history of arrhythmias. It is possible that he could develop this in the future however for now we will hold off on anticoagulation or antiarrhythmics. Respiratory: Acute on chronic hypoxic respiratory failure Pleural effusion Underlying COPD Pneumonia versus atelectasis on CT imaging [id number] ultrasound showing B-lines bilaterally, small effusion on the right. Continue oxygen, goal saturation approximately 90%. [facility] CT imaging was reviewed, looks like pneumonia is resolving, mostly just pleural effusion and atelectasis appreciated. GI: Pancolitis with C. difficile Ascites Recent C. difficile infection treated outpatient, CT showing pancolitis, also distal small bowel affected, ascites is present. Receiving IV Flagyl, p.o. and HI vancomycin. General Surgery consulted, they are following, no immediate indication for surgery. Will monitor with serial abdominal exams. Abdomen is still significantly distended, I got a KUB today, there is gaseous distention of the small bowel in the colon, measuring up to 9 cm. No free air was seen. RENAL/LYTES: Acute renal failure Hyponatremia Anion gap metabolic acidosis with lactic acidosis Sodium is slowly improving, up to 134 today. Nephrology was consulted, emergent dialysis initiated on 09/22/2025. Had another session 09/23/2025 and will have another session today. Metabolic acidosis improving with dialysis. Bicarb infusion stopped 09/22/2025. CT abdomen did not show evidence of hydronephrosis. Keep Ledbetter catheter in place. : Ledbetter catheter in place. ENDO: Type 2 diabetes Hypothyroidism Monitor blood glucose. 200 this morning. Sliding scale as ordered. On Synthroid. On stress dose steroids with hydrocortisone. Will start to wean these after he is off pressors. HEME: Leukocytosis, anemia CBC daily. No evidence of DIC at this time. ID: C. difficile infection with pancolitis Pneumonia (recently treated, resolving on CT) Continue Flagyl IV, p.o. and HI vancomycin Will stop Rocephin. Feeding: NPO, will allow sips and chips today. Fluids: None Analgesia: none Activity: bedrest Thromboprophylaxis: heparin Ulcer prophylaxis: pantoprazole Glycemic control: Sliding scale insulin Bowels: None Indwelling catheters: Ledbetter, Dobbhoff nasogastric feeding tube, FMS, left IJ central venous catheter (inserted 09/22/2025), left radial arterial line (inserted 09/22/2025), right IJ HD catheter (inserted 09/22/2025) Antibiotics: Flagyl IV, p.o. and HI vancomycin Plan: Patient will remain in the ICU. Remains in critical condition however overall improving. Renal function is still poor, making very minimal urine at this time. Nephrology continues to follow, they will do dialysis again today. Continue antibiotics. Pressor requirement is coming down, currently just on norepinephrine. Will continue stress dose steroids for today, will start titrating down once he is off pressors. We did get a repeat KUB today, still significantly dilated bowels, measuring up to 9 cm. Surgery evaluated the patient today. No plan for surgical intervention. I have personally spent 55 minutes of critical care time in the direct management of this patient. This is a life/limb threatening event. This includes time spent evaluating patient, direct bedside care, chart review, placing orders, interpretation of diagnostic studies, discussion with consultants, patient, and family members, as well as other required patient management activities. This time is exclusive of all separately billable procedures, and teaching time and separate from and in addition to any other critical care service time. Admission and Anticipated Discharge Date Admission Date: September 22, 2025 Subjective Past 24-hour events: Had a second session of dialysis yesterday. He tolerated this well. Pressor requirements have come down, he was weaned off of vasopressin. Still had minimal urine output overnight. Did not develop any abdominal pain. Had A-fib RVR and started on amiodarone, converted back to sinus rhythm Rounding: Patient is awake and alert today. Family is at bedside. Patient denies any abdominal pain. He denies any shortness of breath. Abdomen is still distended but less tense. Minimal urine in Ledbetter catheter. Stool output has decreased. FMS is still in place. Intake/output: Intake: 1468 mL Output: 715 mL (only 115 mL was urine) Net: +753 mL Mechanical ventilation: None, on nasal cannula Feeding: NPO, will start sips and chips IV infusions: Norepinephrine running at 0.16, amiodarone infusion Indwelling catheters: Left IJ central venous catheter, right IJ HD catheter, left radial arterial line, Ledbetter catheter, FMS, Dobbhoff nasogastric tube. Laboratory: CBC: WBC 11.8, hemoglobin 12.0, platelet 296 Chemistry: Sodium 134, potassium 3.8, chloride 98, bicarb 21, anion gap 15, BUN 54, creatinine 3.52, glucose 203, calcium 7.0, phosphorus 5.8, AST and ALT normal, procalcitonin 5.0 (slightly downtrending) ABG: None Review of Systems Review of Systems: Negative except as in HPI. Physical Exam Physical Exam: Physical examination: General: Appears ill, resting in bed, on nasal cannula, moderate distress. HEENT: Mucous membranes are dry. Sclera are nonicteric. Extraocular movements intact. No JVD appreciated. Skin: Warm and dry. No jaundice or bruising appreciated. Cardiovascular: A-fib RVR, rate is getting better on amiodarone. Still on pressors. No murmurs appreciated on my exam. Starting to develop some lower extremity edema. Lungs: Mildly tachypneic, on nasal cannula, coarse breath sounds with crackles. Abdomen: Significantly distended and protuberant. No tenderness to deep palpation. No bruising. Musculoskeletal: Some soft tissue swelling appreciated in the right forearm. Likely IV infiltrate. IV was removed. Neurologic: Awake and alert, oriented. CN II through XII are grossly intact. Speech is fluent. Nonfocal exam. Psychiatric: Appropriate cooperative during my exam. Results & Data Results & Data Vital Signs (Past 12 Hours) Vital Signs Pulse Resp BP Pulse Ox O2 Del Method O2 Del Method O2 Flow Rate 09/24/25 10:00 Nasal Cannula 09/24/25 09:45 107 H 16 98 09/24/25 09:30 106 H 25 H 98 12/27/25 09:15 107 H 24 99 09/24/25 09:00 108 H 24 100 09/24/25 09:00 122/78 09/24/25 09:00 122/78 09/24/25 09:00 122/78 09/24/25 09:00 122/78 09/24/25 09:00 122/78 09/24/25 08:45 29 H 09/24/25 08:30 107 H 24 98 09/24/25 08:15 110 H 24 95 09/24/25 08:00 104 H 19 95 09/24/25 08:00 124/75 09/24/25 08:00 124/75 09/24/25 08:00 124/75 09/24/25 08:00 124/75 09/24/25 08:00 124/75 09/24/25 08:00 Nasal Cannula 2 09/24/25 07:45 105 H 19 91 09/24/25 07:30 106 H 20 96 09/24/25 07:15 105 H 22 95 Nasal Cannula 2 09/24/25 07:00 108 H 21 95 09/24/25 07:00 127/74 09/24/25 07:00 127/74 09/24/25 07:00 127/74 09/24/25 07:00 127/74 09/24/25 07:00 127/74 09/24/25 05:30 105 H 21 96 09/24/25 05:15 106 H 21 96 09/24/25 05:00 103 H 17 97 09/24/25 05:00 118/70 09/24/25 05:00 118/70 09/24/25 05:00 118/70 09/24/25 05:00 118/70 09/24/25 05:00 118/70 09/24/25 04:45 103 H 18 96 09/24/25 04:30 105 H 21 94 09/24/25 04:15 106 H 23 96 09/24/25 04:00 102 H 17 97 09/24/25 04:00 118/68 09/24/25 04:00 118/68 09/24/25 04:00 118/68 09/24/25 04:00 118/68 09/24/25 04:00 118/68 09/24/25 03:45 105 H 21 95 09/24/25 03:30 104 H 19 96 09/24/25 03:15 105 H 21 93 09/24/25 03:00 107 H 23 95 09/24/25 03:00 130/71 09/24/25 03:00 130/71 09/24/25 03:00 130/71 09/24/25 03:00 130/71 09/24/25 03:00 130/71 09/24/25 02:45 106 H 17 92 09/24/25 02:30 112 H 19 94 09/24/25 02:15 117 H 20 94 09/24/25 02:00 122 H 24 92 09/24/25 02:00 117/73 09/24/25 02:00 117/73 09/24/25 02:00 117/73 09/24/25 01:45 106 H 19 94 09/24/25 01:30 110 H 33 H 74 L 09/24/25 01:15 106 H 21 94 09/24/25 01:00 107 H 18 93 09/24/25 01:00 122/72 09/24/25 00:53 143/74 H 09/24/25 00:51 107 H 22 91 09/24/25 00:15 108 H 09/24/25 00:00 111/63 09/24/25 00:00 111/63 09/24/25 00:00 111/63 09/24/25 00:00 111/63 09/24/25 00:00 111/63 09/24/25 00:00 127 H 18 89 L 09/23/25 23:49 102/63 09/23/25 23:49 102/63 09/23/25 23:49 102/63 09/23/25 23:49 102/63 09/23/25 23:49 102/63 09/23/25 23:48 105 H 21 91 09/23/25 23:45 116 H 19 89 L 09/23/25 23:30 103 H 20 93 09/23/25 23:15 125 H 21 91 09/23/25 23:05 112/71 09/23/25 23:05 112/71 09/23/25 23:05 112/71 09/23/25 23:05 112/71 09/23/25 23:05 112/71 09/23/25 23:03 120 H 25 H 91 09/23/25 23:00 125 H 20 86 L 09/23/25 22:45 111 H 21 94 09/23/25 22:30 103 H 19 90 Coding Level of Care Code 56556 CRITICAL CARE 1ST 30-74M Diagnoses Septic shock A41.9; R65.21 Pancolitis K52.9 C. difficile colitis A04.72 Acute renal failure N17.9 Acute hypoxic respiratory failure J96.01 Pneumonia J18.9 Acute hyponatremia E87.1 Metabolic acidosis E87.20 Lactic acid acidosis E87.20 Pleural effusion J90 COPD (chronic obstructive pulmonary disease) J44.9
--- NOTE | 2025-09-24 11:47 | Nephrology Progress Note ---
Date of Service September 24, 2025 Assessment & Plan (1) Acute renal failure: (2) Acute hyponatremia: (3) Acute hypoxic respiratory failure: (4) Metabolic acidosis: Plan Mr. Gallarod is a 84-year-old gentleman admitted with septic shock secondary to C. difficile colitis, BEAN, oliguria with multiple electrolyte abnormality including severe metabolic acidosis requiring urgent hemodialysis. Had takq-br-eckd dialysis last 2 days, still remained acidotic and oliguric and kidney function again worsen. --3 hour dialysis today no, aim for 1 L UF if tolerated. --continue to monitor for recovery of kidney function --pressor support as needed. --dose meds for eGFR <10 Admission and Anticipated Discharge Date Admission Date: September 22, 2025 Subjective Mr. Gallardo was seen and evaluated in ICU this morning. He reports feeling better today. Blood pressure better, pressor requirement decreasing. Kidney function however continues care worsen with multiple electrolyte abnormality and remained oliguric. Review of Systems Review of Systems: All systems reviewed & are unremarkable except as noted in Subjective Physical Exam Constitutional: WD/WN, vitals as above no acute distress Eyes: + anicteric sclerae Neck: normal visual inspection Respiratory: Auscultation: lungs clear to auscultation bilaterally Cardiovascular: RRR, no murmur, no edema Skin: no rashes, warm and dry Neurologic: no focal motor deficits Psychiatric: Orientation: alert and oriented x 3 Results & Data Vital Signs (Past 12 Hours) Vital Signs Pulse Resp BP Pulse Ox O2 Del Method O2 Del Method O2 Flow Rate 09/24/25 10:00 Nasal Cannula 09/24/25 09:45 107 H 16 98 09/24/25 09:30 106 H 25 H 98 09/24/25 09:15 107 H 24 99 09/24/25 09:00 108 H 24 100 09/24/25 09:00 122/78 09/24/25 09:00 122/78 09/24/25 09:00 122/78 09/24/25 09:00 122/78 09/24/25 09:00 122/78 09/24/25 08:45 29 H 09/24/25 08:30 107 H 24 98 09/24/25 08:15 110 H 24 95 09/24/25 08:00 104 H 19 95 09/24/25 08:00 124/75 09/24/25 08:00 124/75 09/24/25 08:00 124/75 09/24/25 08:00 124/75 09/24/25 08:00 124/75 09/24/25 08:00 Nasal Cannula 2 09/24/25 07:45 105 H 19 91 09/24/25 07:30 106 H 20 96 09/24/25 07:15 105 H 22 95 Nasal Cannula 2 09/24/25 07:00 108 H 21 95 09/24/25 07:00 127/74 09/24/25 07:00 127/74 09/24/25 07:00 127/74 09/24/25 07:00 127/74 09/24/25 07:00 127/74 09/24/25 05:30 105 H 21 96 09/24/25 05:15 106 H 21 96 09/24/25 05:00 103 H 17 97 09/24/25 05:00 118/70 09/24/25 05:00 118/70 09/24/25 05:00 118/70 09/24/25 05:00 118/70 09/24/25 05:00 118/70 09/24/25 04:45 103 H 18 96 09/24/25 04:30 105 H 21 94 09/24/25 04:15 106 H 23 96 09/24/25 04:00 102 H 17 97 09/24/25 04:00 118/68 09/24/25 04:00 118/68 09/24/25 04:00 118/68 09/24/25 04:00 118/68 09/24/25 04:00 118/68 09/24/25 03:45 105 H 21 95 09/24/25 03:30 104 H 19 96 09/24/25 03:15 105 H 21 93 09/24/25 03:00 107 H 23 95 09/24/25 03:00 130/71 09/24/25 03:00 130/71 09/24/25 03:00 130/71 09/24/25 03:00 130/71 09/24/25 03:00 130/71 09/24/25 02:45 106 H 17 92 09/24/25 02:30 112 H 19 94 09/24/25 02:15 117 H 20 94 09/24/25 02:00 122 H 24 92 09/24/25 02:00 117/73 09/24/25 02:00 117/73 09/24/25 02:00 117/73 09/24/25 01:45 106 H 19 94 09/24/25 01:30 110 H 33 H 74 L 09/24/25 01:15 106 H 21 94 09/24/25 01:00 107 H 18 93 09/24/25 01:00 122/72 09/24/25 00:53 143/74 H 09/24/25 00:51 107 H 22 91 09/24/25 00:15 108 H 09/24/25 00:00 111/63 09/24/25 00:00 111/63 09/24/25 00:00 111/63 09/24/25 00:00 111/63 09/24/25 00:00 111/63 09/24/25 00:00 127 H 18 89 L 09/23/25 23:49 102/63 09/23/25 23:49 102/63 09/23/25 23:49 102/63 09/23/25 23:49 102/63 09/23/25 23:49 102/63 09/23/25 23:48 105 H 21 91 09/23/25 23:45 116 H 19 89 L PG Care Time/CCT Total # of Minutes Spent Total Time Spent with Patient: Total time spent is greater than 50% in coordination of care (as documented) at patient's floor/unit and/or counseling patient: Coding Level of Care Code 59278 SUB INP/OBS CARE 3/50MIN Diagnoses Acute renal failure N17.9 Acute hyponatremia E87.1 Acute hypoxic respiratory failure J96.01 Metabolic acidosis E87.20
--- NOTE | 2025-09-24 12:25 | Surgery Progress Note ---
Date of Service September 24, 2025 Assessment & Plan (1) C. difficile colitis: Plan Pt continues to improve clinically No evidence for perforation, no surgical intervention Conservative care and management per associate professor of archaeology Surgery will follow Admission and Anticipated Discharge Date Admission Date: September 22, 2025 Subjective Pt without complaints. Denies abdominal pain or nausea. Physical Exam Constitutional: cooperative and comfortable; not in distress and not d iaphoretic Feeding tube in place Rectal tube functioning in place Respiratory: normal respiratory effort; no respiratory distress, no labored breathing and does not use accessory muscles Gastrointestinal (Abdomen): Inspection/Auscultation: + abdomen distended Percussion/Palpation: abdomen nontender, no guarding and abdomen not rigid soft Results & Data Vital Signs (Past 12 Hours) Vital Signs Pulse Resp BP Pulse Ox O2 Del Method O2 Del Method O2 Flow Rate 09/24/25 10:00 Nasal Cannula 09/24/25 09:45 107 H 16 98 09/24/25 09:30 106 H 25 H 98 09/24/25 09:15 107 H 24 99 09/24/25 09:00 108 H 24 100 09/24/25 09:00 122/78 09/24/25 09:00 122/78 09/24/25 09:00 122/78 09/24/25 09:00 122/78 09/24/25 09:00 122/78 09/24/25 08:45 29 H 09/24/25 08:30 107 H 24 98 09/24/25 08:15 110 H 24 95 09/24/25 08:00 104 H 19 95 09/24/25 08:00 124/75 09/24/25 08:00 124/75 09/24/25 08:00 124/75 09/24/25 08:00 124/75 09/24/25 08:00 124/75 09/24/25 08:00 Nasal Cannula 2 09/24/25 07:45 105 H 19 91 09/24/25 07:30 106 H 20 96 09/24/25 07:15 105 H 22 95 Nasal Cannula 2 09/24/25 07:00 108 H 21 95 09/24/25 07:00 127/74 09/24/25 07:00 127/74 09/24/25 07:00 127/74 09/24/25 07:00 127/74 09/24/25 07:00 127/74 12/27/25 05:30 105 H 21 96 09/24/25 05:15 106 H 21 96 09/24/25 05:00 103 H 17 97 09/24/25 05:00 118/70 09/24/25 05:00 118/70 09/24/25 05:00 118/70 09/24/25 05:00 118/70 09/24/25 05:00 118/70 09/24/25 04:45 103 H 18 96 09/24/25 04:30 105 H 21 94 09/24/25 04:15 106 H 23 96 09/24/25 04:00 102 H 17 97 09/24/25 04:00 118/68 09/24/25 04:00 118/68 09/24/25 04:00 118/68 09/24/25 04:00 118/68 09/24/25 04:00 118/68 09/24/25 03:45 105 H 21 95 09/24/25 03:30 104 H 19 96 09/24/25 03:15 105 H 21 93 09/24/25 03:00 107 H 23 95 09/24/25 03:00 130/71 09/24/25 03:00 130/71 09/24/25 03:00 130/71 09/24/25 03:00 130/71 09/24/25 03:00 130/71 09/24/25 02:45 106 H 17 92 09/24/25 02:30 112 H 19 94 09/24/25 02:15 117 H 20 94 09/24/25 02:00 122 H 24 92 09/24/25 02:00 117/73 09/24/25 02:00 117/73 09/24/25 02:00 117/73 09/24/25 01:45 106 H 19 94 09/24/25 01:30 110 H 33 H 74 L 09/24/25 01:15 106 H 21 94 09/24/25 01:00 107 H 18 93 09/24/25 01:00 122/72 09/24/25 00:53 143/74 H 09/24/25 00:51 107 H 22 91 PG Care Time/CCT Total # of Minutes Spent Total Time Spent with Patient: Total time spent is greater than 50% in coordination of care (as documented) at patient's floor/unit and/or counseling patient: Coding Level of Care Code 16830 SUB INP/OBS CARE MIN Diagnoses C. difficile colitis A04.72
[2025-09-24] MEDS ORDERED: 0.2 MICRON FILTER SET 1 EACH IV ONE (14:07)
[2025-09-24] MEDS: AMIODARONE / D5W 360 MG/200 ML BAG IV SCH (14:12)
[2025-09-24] MEDS ORDERED: STAT IV Infusion **Titration per Protocol STA (14:36)
[2025-09-24] MEDS: HEPARIN SOD (PORCINE) 1000 UNIT/ML IV ONE (16:03)
[2025-09-24] MEDS: HEPARIN SOD (PORCINE) 1000 UNIT/ML IV SCH (16:03)
[2025-09-24] MEDS: VASOPRESSIN 20 UNITS in SODIUM CHLORIDE 0.9% 100 ML IV SCH (17:06)
[2025-09-24 18:56] LABS: Anion Gap 13.0 (3-11); Blood Urea Nitrogen 30.0 mg/dl (6-23); Calcium 7.2 mg/dl (8.6-10.3); Carbon Dioxide 24.0 mmol/L (21-32); Chloride 99.0 mmol/L (98-107); Creatinine Clr Calc Pharmacy 21.2 ml/min; Glucose 162.0 mg/dl (70-99(Fasting)); Potassium 3.2 mmol/L (3.5-5.1); Sodium 136.0 mmol/L (136-145)
[2025-09-24] MEDS: POTASSIUM CHLORIDE / WTR 20 MEQ/100 ML PLCT IV SCH (20:40)
[2025-09-24] MEDS: POTASSIUM CHLORIDE CRTAB 20 MEQ TABCR PO STA (23:11)
[2025-09-25 05:02] LABS: Hematocrit (blood only) 35.8 % (42.0-52.0); Hemoglobin 12.6 g/dL (14.0-18.0); Immature Granulocytes # (auto) 0.37 K/uL (0.01-0.20); Immature Granulocytes % (auto) 2.6 %; Mean Corpuscular Hemoglobin 32.6 pg (25.0-34.0); Mean Corpuscular Volume 92.7 fL (80.0-100.0); Platelet Count 306 K/uL (130-400); RDW Standard Deviation 50.6 fL (36.4-46.3); Red Blood Count 3.86 M/uL (4.70-6.10); White Blood Count 14.07 K/ul (4.8-10.8)
[2025-09-25 05:21] LABS: Alanine Aminotransferase 26.0 U/L (7-52); Albumin Globulin Ratio 1.0 (0.9-2); Albumin Level 2.1 gm/dl (3.4-5.0); Alkaline Phosphatase 117.0 U/L (34-104); Anion Gap 13.0 (3-11); Bilirubin,Total 0.3 mg/dl (0.2-1.0); Blood Urea Nitrogen 39.0 mg/dl (6-23); Calcium 7.2 mg/dl (8.6-10.3); Carbon Dioxide 22.0 mmol/L (21-32); Chloride 100.0 mmol/L (98-107); Creatinine Clr Calc Pharmacy 16.7 ml/min; Globulin 2.2 gm/dl (2.5-4.0); Glucose 168.0 mg/dl (70-99(Fasting)); Magnesium 2.0 mg/dl (1.7-2.4); Potassium 3.9 mmol/L (3.5-5.1); Sodium 135.0 mmol/L (136-145); Total Protein 4.3 gm/dl (6.0-8.3)
--- NOTE | 2025-09-25 07:19 | Critical Care Progress Note ---
Date of Service September 25, 2025 Assessment & Plan (1) Septic shock: (2) Pancolitis: (3) C. 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 He was treated with Rocephin and Zithromax (completed 5 days) and discharged with cefuroxime to complete 5 days. The patient was also discharged at that time with oxygen and followed up with his tailoring teacher. The patient had developed diarrhea in the outpatient setting and was diagnosed with C. difficile in the outpatient setting approximately 2 days prior to presenting to our facility and started on Dificid which he believes helped his symptoms and his diarrhea started slowing down. Today the patient had worsening weakness and shortness of breath. He took all of his home medications as prescribed including his antihypertensives prior to presenting to the hospital. On presentation he was hypoxic with a saturation of 84%. Abdomen was distended but not tender. The patient was significantly hypotensive and was administered 3 L of crystalloid fluid resuscitation with minimal improvement in his blood pressure therefore norepinephrine was started peripherally and he received 200 mg of hydrocortisone. Admission labs were significant for acute renal failure, severe metabolic acidosis, leukocytosis, hyponatremia and lactic acidosis. Imaging of the chest abdomen pelvis showed a right sided pneumonia (improving), right pleural effusion, fluid filled esophagus. Pancolitis with ascites, no abscess or free air was appreciated. Reason Critically Ill: Refractory shock with multiorgan dysfunction, likely septic in setting of C. difficile colitis Atrial fibrillation with RVR Pancolitis with C. difficile Acute renal failure, status post HD cath 09/22/2025 Anion gap metabolic acidosis lactic acidosis (resolved) Hyponatremia (improving) Hypoxic respiratory failure (improving) Pleural effusion (small to moderate on bedside ultrasound) Neuro: Awake and alert, no deficits at this time. Cardiac: Refractory shock with multiorgan dysfunction [id number] ultrasound showing hyperdynamic LV, grossly preserved EF. IVC dilated. Received 200 hydrocortisone in ER on arrival. Status post 4 L crystalloid for volume resuscitation. Central venous catheter and left IJ (09/22/2025) Right radial arterial line and left radial artery (09/22/2025) Went into A-fib RVR 09/23/2025 Will continue hydrocortisone 50 mg every 6 hours, once he is off vasopressors then we will start weaning this off. Continue norepinephrine, vasopressin is weaned off. Goal MAP 65. We will continue amiodarone for now. Likely just induced due to sepsis. He does not have a history of arrhythmias. It is possible that he could develop this in the future however for now we will hold off on anticoagulation for now. Respiratory: Acute on chronic hypoxic respiratory failure (improving) Pleural effusion Underlying COPD Pneumonia versus atelectasis on CT imaging [id number] ultrasound showing B-lines bilaterally, small effusion on the right. Continue oxygen, goal saturation approximately 90%. Only on 2 L of oxygen now. [facility] CT imaging was reviewed, looks like pneumonia is resolving, mostly just pleural effusion and atelectasis appreciated. GI: Pancolitis with C. difficile Ascites Gaseous distention of bowels Recent C. difficile infection treated outpatient, CT showing pancolitis, also distal small bowel affected, ascites is present. Receiving IV Flagyl, p.o. and OH vancomycin. General Surgery consulted, they are following, no immediate indication for surgery. Will monitor with serial abdominal exams. Abdomen is still significantly distended, slightly more distended today compared to yesterday. I do not appreciate any bowel sounds. Repeat KUB was performed this morning, official read is pending, bowels look more distended from my review. I updated general surgery. Patient has Dobbhoff NG tube, we will try to place a regular nasogastric tube so we can decompress the bowels. RENAL/LYTES: Acute renal failure Hyponatremia Anion gap metabolic acidosis with lactic acidosis Sodium is slowly improving, up to 134 today. Nephrology was consulted, emergent dialysis initiated on 09/22/2025, had sessions on the and . No plan for dialysis today per nephro. Metabolic acidosis improving with dialysis. Bicarb infusion stopped 09/22/2025. CT abdomen did not show evidence of hydronephrosis. Keep Ledbetter catheter in place. Still limited urine output. : Ledbetter catheter in place. ENDO: Type 2 diabetes Hypothyroidism Monitor blood glucose. Sliding scale as ordered. On Synthroid. On stress dose steroids with hydrocortisone. Will start to wean these after he is off pressors. HEME: Leukocytosis, anemia CBC daily. No evidence of DIC at this time. ID: C. difficile infection with pancolitis Pneumonia (recently treated, resolving on CT) Continue Flagyl IV, p.o. and OH vancomycin Feeding: NPO, sips and chips Fluids: None Analgesia: none Activity: bedrest Thromboprophylaxis: heparin Ulcer prophylaxis: pantoprazole Glycemic control: Sliding scale insulin Bowels: None Indwelling catheters: Ledbetter, Dobbhoff nasogastric feeding tube, FMS, left IJ central venous catheter (inserted 09/22/2025), left radial arterial line (inserted 09/22/2025), right IJ HD catheter (inserted 09/22/2025) Antibiotics: Flagyl IV, p.o. and OH vancomycin Plan: Patient will remain in the medical ICU. Remains in critical condition. Norepinephrine at 0.1, improved compared to yesterday. Still off of vaso. Continuing amiodarone infusion, he is sinus tach at this point. Abdomen is slightly more distended, bowels are significantly distended. He needs to decompress. We will try to replace Dobbhoff with regular nasogastric tube for bowel decompression. Can have sips and chips. Continue Flagyl and vancomycin. No plan for HD today per nephrology. General surgery following along. I have personally spent 55 minutes of critical care time in the direct management of this patient. This is a life/limb threatening event. This includes time spent evaluating patient, direct bedside care, chart review, placing orders, interpretation of diagnostic studies, discussion with consultants, patient, and family members, as well as other required patient management activities. This time is exclusive of all separately billable procedures, and teaching time and separate from and in addition to any other critical care service time. Admission and Anticipated Discharge Date Admission Date: September 22, 2025 Subjective Past 24-hour events: Clinically improved over the past 24 hours. Vasopressor requirements have come down. Was hypotensive and went back into A-fib during dialysis. They were pulling fluid. We started back on amiodarone. Vaso was ordered but not turned on. Rounding: Awake and alert this morning. No acute complaints. He says that he did not sleep at all last night. He says his mouth gets dry very quickly. Still no abdominal pain. On exam his belly is slightly more distended to me this morning. No tenderness. I do not appreciate bowel sounds in all quadrants. On norepinephrine running at 0.1. Oxygenating well. He is diminished at both bases. Only on 2 L however. Significant edema appreciated. All extremities. Intake: 1033 mL Output: 60 mL urine, had 1.5 L removed with HD yesterday Net: -527 mL Mechanical ventilation: None, on 2 L via nasal cannula Feeding: Sips and chips IV infusions: Amiodarone, norepinephrine Indwelling catheters: Ledbetter catheter, NG tube with Dobbhoff. Has a right IJ HD cath, left IJ CVC, left radial art line. Laboratory: CBC: WBC 14, hemoglobin 12.6, platelets 306 Chemistry: Sodium 135, potassium 3.9, chloride 100, bicarb 22, anion gap 13, BUN 39, creatinine 3.09, glucose 168, calcium 7.2, phosphorus 5.1, AST 27, ALT 26 ABG: None Review of Systems Review of Systems: Negative except as in HPI. Physical Exam Physical Exam: Physical examination: General: Appears ill, resting in bed, on nasal cannula, comfortable, not in distress. HEENT: Mucous membranes are dry. Sclera are nonicteric. Extraocular movements intact. No JVD appreciated. Skin: Warm and dry. No jaundice or bruising appreciated. Edema of extremities. Cardiovascular: Sinus tachycardia, on norepinephrine and amiodarone, no murmurs appreciated. Edema of lower extremities. Lungs: Diminished at bases, nontachypneic, on 2 L via nasal cannula with saturation of 98%. Abdomen: Significantly distended and protuberant. No tenderness to deep palpation. No bruising. Cannot appreciate any bowel sounds today. They were sluggish yesterday. Musculoskeletal: Normal muscle mass. Normal tone. Moving all extremities. No deformities appreciated. Neurologic: Awake and alert, oriented. CN II through XII are grossly intact. Speech is fluent. Nonfocal exam. Psychiatric: Appropriate cooperative during my exam. Results & Data Results & Data Vital Signs (Past 12 Hours) Vital Signs Temp Pulse Resp BP Pulse Ox O2 Del Method O2 Flow Rate 09/25/25 02:00 89/60 L 09/25/25 02:00 100 H 15 95 09/25/25 01:45 101 H 17 94 09/25/25 01:30 103 H 20 94 09/25/25 01:15 103 H 18 94 09/25/25 01:00 97/58 L 09/25/25 01:00 105 H 21 92 09/25/25 00:45 103 H 22 93 09/25/25 00:30 104 H 21 92 09/25/25 00:15 102 H 20 95 09/25/25 00:00 102 H 18 94 09/24/25 23:45 98 H 15 97 09/24/25 23:30 101 H 16 95 09/24/25 23:15 102 H 17 95 09/24/25 23:12 103 H 09/24/25 23:00 101 H 16 95 09/24/25 22:45 105 H 20 95 09/24/25 22:30 102 H 21 97 09/24/25 22:15 103 H 18 95 09/24/25 22:00 105 H 19 96 09/24/25 21:45 104 H 19 97 09/24/25 21:30 105 H 22 95 09/24/25 21:30 Nasal Cannula 2 09/24/25 21:15 105 H 20 95 09/24/25 21:00 36.8 C 09/24/25 21:00 105 H 19 96 09/24/25 20:45 106 H 20 94 09/24/25 20:30 105 H 22 95 09/24/25 20:15 105 H 19 95 09/24/25 20:00 106 H 21 97 09/24/25 19:45 106 H 20 95 09/24/25 19:30 104 H 18 94 Coding Level of Care Code 73587 CRITICAL CARE 1ST 30-74M Diagnoses Septic shock A41.9; R65.21 Pancolitis K52.9 C. difficile colitis A04.72 Acute renal failure N17.9 Acute hypoxic respiratory failure J96.01 Acute hyponatremia E87.1 Metabolic acidosis E87.20 Pleural effusion J90 COPD (chronic obstructive pulmonary disease) J44.9 Atrial fibrillation with RVR I48.91
--- NOTE | 2025-09-25 08:29 | XRay Report ---
KUB HISTORY: ileus/colitis COMPARISON STUDY: 09/24/2025 FINDINGS: Feeding tube tip is in the mid to distal stomach. Gaseous distention of the small bowel and colon measures up to 3 cm at the small bowel and 9 cm of the colon, stable. No gross free air seen. IMPRESSION: Stable exam. ACT 112: Negative or not required by law. The above report was generated using voice recognition software. It may contain grammatical, syntax o r spelling errors. Electronically signed by: Ori Sol M.D. 09/25/2025 8:26 AM
[2025-09-25] MEDS: CALCIUM GLUCONATE 1,000 MG/60 ML BAG IV SCH (08:33)
--- NOTE | 2025-09-25 11:05 | Nephrology Progress Note ---
Date of Service September 25, 2025 Assessment & Plan (1) Acute renal failure: (2) Acute hyponatremia: (3) Acute hypoxic respiratory failure: (4) Metabolic acidosis: Plan Mr. Gallardo is a 84-year-old gentleman admitted with septic shock secondary to C. difficile colitis, BEAN, oliguria with multiple electrolyte abnormality including severe metabolic acidosis requiring urgent hemodialysis. Had [id number] dialysis last 3 days, still remained oliguric and kidney function again worsen. --Monitor urine output and electrolyte, so far no sign of renal recovery, most likely will need dialysis again tomorrow. If remain oliguric, may need to plan for removing the temporary catheter and placement of tunneled dialysis catheter next week. --continue to monitor for recovery of kidney function --pressor support as needed. --dose meds for eGFR <10 Admission and Anticipated Discharge Date Admission Date: September 22, 2025 Chevy Ledezma was seen and evaluated in ICU this morning. He reports feeling well. Blood pressure better. Kidney function continues to worsen after dialysis and remained oliguric. Physical Exam Constitutional: WD/WN, vitals as above + ill appearing; no acute distress Eyes: + anicteric sclerae Respiratory: Auscultation: lungs clear to auscultation bilaterally Cardiovascular: RRR, no murmur, no edema Gastrointestinal (Abdomen): Inspection/Auscultation: + abdomen distended Percussion/Palpation: + abdomen rigid; abdomen nontender Skin: no rashes, warm and dry Neurologic: no focal motor deficits Psychiatric: Orientation: alert and oriented x 3 Results & Data Vital Signs (Past 12 Hours) Vital Signs Pulse Resp BP Pulse Ox O2 Del Method O2 Del Method O2 Flow Rate 09/25/25 10:00 109 H 15 95 09/25/25 09:45 110 H 17 94 09/25/25 09:42 Nasal Cannula 09/25/25 09:30 112 H 18 93 09/25/25 09:15 111 H 21 94 09/25/25 09:00 108 H 21 91 09/25/25 08:45 107 H 21 94 09/25/25 08:30 107 H 20 92 09/25/25 08:15 108 H 20 95 09/25/25 08:00 106 H 20 94 Nasal Cannula 2 09/25/25 07:45 107 H 18 94 09/25/25 07:30 109 H 20 94 09/25/25 07:15 110 H 19 95 09/25/25 07:00 109 H 19 94 09/25/25 02:00 89/60 L 09/25/25 02:00 100 H 15 95 09/25/25 01:45 101 H 17 94 09/25/25 01:30 103 H 20 94 09/25/25 01:15 103 H 18 94 09/25/25 01:00 97/58 L 09/25/25 01:00 105 H 21 92 09/25/25 00:45 103 H 22 93 09/25/25 00:30 104 H 21 92 09/25/25 00:15 102 H 20 95 09/25/25 00:00 102 H 18 94 09/24/25 23:45 98 H 15 97 09/24/25 23:30 101 H 16 95 09/24/25 23:15 102 H 17 95 09/24/25 23:12 103 H 09/24/25 23:00 101 H 16 95 O2 Flow Rate 09/25/25 10:00 09/25/25 09:45 09/25/25 09:42 2 09/25/25 09:30 09/25/25 09:15 09/25/25 09:00 09/25/25 08:45 09/25/25 08:30 09/25/25 08:15 09/25/25 08:00 09/25/25 07:45 09/25/25 07:30 09/25/25 07:15 09/25/25 07:00 09/25/25 02:00 09/25/25 02:00 09/25/25 01:45 09/25/25 01:30 09/25/25 01:15 09/25/25 01:00 09/25/25 01:00 09/25/25 00:45 09/25/25 00:30 09/25/25 00:15 09/25/25 00:00 09/24/25 23:45 09/24/25 23:30 09/24/25 23:15 09/24/25 23:12 09/24/25 23:00 PG Care Time/CCT Total # of Minutes Spent Total Time Spent with Patient: Total time spent is greater than 50% in coordination of care (as documented) at patient's floor/unit and/or counseling patient: Coding Level of Care Code 91771 SUB INP/OBS CARE 350MIN Diagnoses Acute renal failure N17.9 Acute hyponatremia E87.1 Acute hypoxic respiratory failure J96.01 Metabolic acidosis E87.20
--- NOTE | 2025-09-25 11:34 | Hospitalist Progress Note ---
Date of Service September 25, 2025 Assessment & Plan (1) Septic shock: Plan: Secondary to c. diff pancolitis s/p 3L NSS with MAP, ongoing maintenance fluids per ICU Still on Levophed, vasopressin dc'd Vancomycin 500mg PO q6h + Metronidazole 500mg IV q8h Surgery consult appreciated-con't medical management Critical care following Plan to place NTG for bowel decompression (2) Acute renal failure: Plan: -BEAN 2nd to septic shock -Nephrology following -had HD yesterday (3) Atrial fibrillation with RVR: Plan: -amiodarone drip stop -anticoagulation held (4) Acute hypoxic respiratory failure: Plan: Baseline: 2LPM O2 at rest, 4LPM O2 on exertion Resolved Continue maintenance inhaler Incentive spirometry (5) Hx of gastric ulcer: Plan: -protonix Plan 84 year old male presents with progressive weakness, diarrhea and shortness of breath. Diagnosed with c. diff as outpatient 2 days prior to admission, started Dificid day prior to admission. Took his usual medications including antihypertensives day of admission. VTE Prophylaxis - heparin 5000 units SQ BID Disposition - ICU Admission and Anticipated Discharge Date Admission Date: September 22, 2025 Subjective Pt was weaned off vasopressin, amiodarone drip, currently resting in bed. Review of Systems Review of Systems: CONST: Negative for fever, body aches and chills. HENT: Negative for neck pain/stiffness, headache, congestion, sore throat, swelling. EYES: Negative for discharge/pain or vision changes. RESP: Negative for cough/hemoptysis and shortness of breath. CV: Negative chest pain, difficulty breathing, palpitations. ABD: Negative pain, nausea, vomiting. : Negative increase frequency, dysuria, blood in urine or stool. MUSC: Negative for muscle aches, edema. SKIN: Negative rash, lesions/sores. NEURO: Negative headache, dizziness, weakness. Physical Exam Physical Exam: GENERAL APPEARANCE NAD, activity normal for age, well developed/ well nourished, no cyanosis, pallor, or diaphoresis. EYES lids/conjunctiva normal. EARS/NOSE/THROAT Mucous membranes moist, nares normal, lips/teeth normal uvula midline without oral pharyngeal erythema, exudate or swelling TMs normal bilaterally. No lymphangitis/lymphedema. HEAD/NECK normocephalic atraumatic, no facial trauma, neck is supple. RESPIRATORY respiratory effort normal, speaks in full sentences, no tripod position, no accessory muscle use. Lungs clear to auscultation without rhonchi, wheezes, rales CARDIAC Regular rate and rhythm, no edema. ABDOMINAL Soft, ND/NT. No evidence of fluid wave. No pulsatile masses on exam, rebound tenderness, Yung sign or pain over Mcburney's point. MUSCLES/EXTREMITIES No abnormal range of motion, no swelling. SKIN Warm, pink and dry. No rashes, dermatoses, petechiae or lesions. NEUROLOGICAL Speech is clear and appropriate. Normal level of consciousness. Gait and coordination are normal. 5/5 strength in all extremities. PSYCH Normal mood and affect. Judgement/competence is appropriate Results & Data Results & Data Vital Signs (Past 12 Hours) Vital Signs Pulse Resp BP Pulse Ox O2 Del Method O2 Del Method O2 Flow Rate 09/25/25 10:00 109 H 15 95 09/25/25 09:45 110 H 17 94 09/25/25 09:42 Nasal Cannula 09/25/25 09:30 112 H 18 93 09/25/25 09:15 111 H 21 94 09/25/25 09:00 108 H 21 91 09/25/25 08:45 107 H 21 94 09/25/25 08:30 107 H 20 92 09/25/25 08:15 108 H 20 95 09/25/25 08:00 106 H 20 94 Nasal Cannula 2 09/25/25 07:45 107 H 18 94 09/25/25 07:30 109 H 20 94 09/25/25 07:15 110 H 19 95 09/25/25 07:00 109 H 19 94 09/25/25 02:00 89/60 L 09/25/25 02:00 100 H 15 95 09/25/25 01:45 101 H 17 94 09/25/25 01:30 103 H 20 94 09/25/25 01:15 103 H 18 94 09/25/25 01:00 97/58 L 09/25/25 01:00 105 H 21 92 09/25/25 00:45 103 H 22 93 09/25/25 00:30 104 H 21 92 09/25/25 00:15 102 H 20 95 09/25/25 00:00 102 H 18 94 09/24/25 23:45 98 H 15 97 09/24/25 23:30 101 H 16 95 O2 Flow Rate 09/25/25 10:00 09/25/25 09:45 09/25/25 09:42 2 09/25/25 09:30 09/25/25 09:15 09/25/25 09:00 09/25/25 08:45 09/25/25 08:30 09/25/25 08:15 09/25/25 08:00 09/25/25 07:45 09/25/25 07:30 09/25/25 07:15 09/25/25 07:00 09/25/25 02:00 09/25/25 02:00 09/25/25 01:45 09/25/25 01:30 09/25/25 01:15 09/25/25 01:00 09/25/25 01:00 09/25/25 00:45 09/25/25 00:30 09/25/25 00:15 09/25/25 00:00 09/24/25 23:45 09/24/25 23:30 PG Care Time/CCT Total # of Minutes Spent Total Time Spent with Patient: Total time spent is greater than 50% in coordination of care (as documented) at patient's floor/unit and/or counseling patient: Coding Level of Care Code 52291 SUB INP/OBS CARE 2/35MIN Diagnoses Septic shock A41.9; R65.21 Acute renal failure N17.9 Atrial fibrillation with RVR I48.91 Acute hypoxic respiratory failure J96.01 Hx of gastric ulcer Z87.11
--- NOTE | 2025-09-25 12:05 | Surgery Progress Note ---
Date of Service September 25, 2025 Assessment & Plan (1) C. difficile colitis: Plan KUB this am without evidence for perforation. No evidence for peritonitis on exam. Rectal tube in place Insert NGT if pt able to tolerate to help with suspected SB ileus OOB to chair if possible Admission and Anticipated Discharge Date Admission Date: September 22, 2025 Subjective Pt had some pain o/n controlled with IV analgesic, KUB obtained at that time did not reveal any evidence for perforation. This am has no complaints. Physical Exam Constitutional: + obese; not in distress and not diaphor etic Respiratory: normal respiratory effort; no respiratory distress, no labored breathing and does not use accessory muscles Gastrointestinal (Abdomen): Inspection/Auscultation: + abdomen distended Percussion/Palpation: abdomen soft; abdomen nontender, no guarding and abdomen not rigid Results & Data Vital Signs (Past 12 Hours) Vital Signs Pulse Resp BP Pulse Ox O2 Del Method O2 Del Method O2 Flow Rate 09/25/25 10:00 109 H 15 95 09/25/25 09:45 110 H 17 94 09/25/25 09:42 Nasal Cannula 09/25/25 09:30 112 H 18 93 09/25/25 09:15 111 H 21 94 09/25/25 09:00 108 H 21 91 09/25/25 08:45 107 H 21 94 09/25/25 08:30 107 H 20 92 09/25/25 08:15 108 H 20 95 09/25/25 08:00 106 H 20 94 Nasal Cannula 2 09/25/25 07:45 107 H 18 94 09/25/25 07:30 109 H 20 94 09/25/25 07:15 110 H 19 95 09/25/25 07:00 109 H 19 94 09/25/25 02:00 89/60 L 09/25/25 02:00 100 H 15 95 09/25/25 01:45 101 H 17 94 09/25/25 01:30 103 H 20 94 09/25/25 01:15 103 H 18 94 09/25/25 01:00 97/58 L 09/25/25 01:00 105 H 21 92 09/25/25 00:45 103 H 22 93 09/25/25 00:30 104 H 21 92 09/25/25 00:15 102 H 20 95 O2 Flow Rate 09/25/25 10:00 09/25/25 09:45 09/25/25 09:42 2 09/25/25 09:30 09/25/25 09:15 09/25/25 09:00 09/25/25 08:45 09/25/25 08:30 09/25/25 08:15 09/25/25 08:00 09/25/25 07:45 09/25/25 07:30 09/25/25 07:15 09/25/25 07:00 09/25/25 02:00 09/25/25 02:00 09/25/25 01:45 09/25/25 01:30 09/25/25 01:15 09/25/25 01:00 09/25/25 01:00 09/25/25 00:45 09/25/25 00:30 09/25/25 00:15 PG Care Time/CCT Total # of Minutes Spent Total Time Spent with Patient: Total time spent is greater than 50% in coordination of care (as documented) at patient's floor/unit and/or counseling patient: Coding Level of Care Code 66545 SUB INP/OBS CARE 10/23MIN Diagnoses C. difficile colitis A04.72
[2025-09-26] MEDS: MELATONIN 3 MG TAB PO PRN (00:56)
[2025-09-26 06:11] LABS: Hematocrit (blood only) 37.9 % (42.0-52.0); Hemoglobin 13.4 g/dL (14.0-18.0); Mean Corpuscular Hemoglobin 33.0 pg (25.0-34.0); Mean Corpuscular Volume 93.3 fL (80.0-100.0); Platelet Count 226 K/uL (130-400); RDW Standard Deviation 51.3 fL (36.4-46.3); Red Blood Count 4.06 M/uL (4.70-6.10); White Blood Count 16.82 K/ul (4.8-10.8)
[2025-09-26 06:44] LABS: Anion Gap 17.0 (3-11); Blood Urea Nitrogen 60.0 mg/dl (6-23); Calcium 7.2 mg/dl (8.6-10.3); Carbon Dioxide 20.0 mmol/L (21-32); Chloride 99.0 mmol/L (98-107); Creatinine Clr Calc Pharmacy 11.8 ml/min; Glucose 181.0 mg/dl (70-99(Fasting)); Magnesium 2.1 mg/dl (1.7-2.4); Potassium 3.9 mmol/L (3.5-5.1); Sodium 136.0 mmol/L (136-145)
[2025-09-26 07:01] LABS: Dohle Bodies 1+; Immature Granulocytes # (auto) 0.29 K/uL (0.01-0.20); Immature Granulocytes % (auto) 1.7 %; Polychromasia 1+
--- NOTE | 2025-09-26 07:44 | Critical Care Progress Note ---
Date of Service September 26, 2025 Assessment & Plan (1) Septic shock: (2) Pancolitis: (3) C. 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 He was treated with Rocephin and Zithromax (completed 5 days) and discharged with cefuroxime to complete 5 days. The patient was also discharged at that time with oxygen and followed up with his online content developer. The patient had developed diarrhea in the outpatient setting and was diagnosed with C. difficile in the outpatient setting approximately 2 days prior to presenting to our facility and started on Dificid which he believes helped his symptoms and his diarrhea started slowing down. Today the patient had worsening weakness and shortness of breath. He took all of his home medications as prescribed including his antihypertensives prior to presenting to the hospital. On presentation he was hypoxic with a saturation of 84%. Abdomen was distended but not tender. The patient was significantly hypotensive and was administered 3 L of crystalloid fluid resuscitation with minimal improvement in his blood pressure therefore norepinephrine was started peripherally and he received 200 mg of hydrocortisone. Admission labs were significant for acute renal failure, severe metabolic acidosis, leukocytosis, hyponatremia and lactic acidosis. Imaging of the chest abdomen pelvis showed a right sided pneumonia (improving), right pleural effusion, fluid filled esophagus. Pancolitis with ascites, no abscess or free air was appreciated. The patient was admitted to the medical ICU. He had refractory shock on multiple pressors. Arterial line and central venous catheter were placed. He received aggressive crystalloid resuscitation for hypovolemic and septic shock. Stress dose steroids were continued. He was initiated on IV Flagyl, p.o. and KS vancomycin. General surgery was consulted, they did not recommend any surgical intervention. The patient had worsening renal function with severe metabolic acidosis. Urine output was negligible. Nephrology was consulted, discussion was held between immediate transfer for CRRT versus in-house hemodialysis, nephrology wanted to try hemodialysis here. HD catheter was inserted and emergent dialysis was performed on 09/22/2025. The patient had some improvement after his first session of dialysis. Repeat dialysis was performed on 09/23/2025, during that episode he required more pressors and went into A-fib RVR for which amiodarone was initiated. During his dialysis sessions his blood pressures dropped. Again today dialysis was performed, the plan was to go for 4 hours and pull 2 L of fluid however he required increased vasopressors and did not tolerate that whole session, was in A-fib RVR and significantly hypotensive. I discussed the possibility of transferring for CRRT, the patient is agreeable to this. Reason Critically Ill: Refractory shock with multiorgan dysfunction, likely septic in setting of C. difficile colitis Atrial fibrillation with RVR Pancolitis with C. difficile Acute renal failure, status post HD cath 09/22/2025 Anion gap metabolic acidosis Lactic acidosis (resolved) Hyponatremia (improving) Hypoxic respiratory failure (improving) Pleural effusion (small to moderate on bedside ultrasound) Neuro: Awake and alert, no deficits at this time. Cardiac: Refractory shock with multiorgan dysfunction [id number] ultrasound showing hyperdynamic LV, grossly preserved EF. IVC dilated. Central venous catheter and left IJ (09/22/2025) Went into A-fib RVR 09/23/2025 Will continue hydrocortisone 50 mg every 6 hours, once he is off vasopressors then we will start weaning this off. Continue norepinephrine, adding back vasopressin. Goal MAP 65. We will continue amiodarone for now. Have not initiated anticoagulation therapy. Respiratory: Acute on chronic hypoxic respiratory failure (improving) Pleural effusion Underlying COPD Pneumonia versus atelectasis on CT imaging [id number] ultrasound showing B-lines bilaterally, small effusion on the right. Continue oxygen, goal saturation approximately 90%. Oxygen requirement increasing, 6 L of oxygen via nasal cannula. [facility] CT imaging was reviewed, looks like pneumonia is resolving, mostly just pleural effusion and atelectasis. GI: Pancolitis with C. difficile Ascites Gaseous distention of bowels Recent C. difficile infection treated outpatient, CT showing pancolitis, also distal small bowel affected, ascites is present. Receiving IV Flagyl, p.o. and KS vancomycin. General Surgery consulted, they are following, no immediate indication for surgery. Will monitor with serial abdominal exams. Abdomen is still significantly distended, nasogastric tube is in place, low intermittent suction for bowel decompression. RENAL/LYTES: Acute renal failure Hyponatremia Anion gap metabolic acidosis with lactic acidosis Sodium is slowly improving, up to 134 today. Nephrology was consulted, emergent dialysis initiated on 09/22/2025, had sessions on the and . Did not tolerate dialysis well today, needs continuous renal replacement therapy. Will transfer. Metabolic acidosis improving with dialysis. Bicarb infusion stopped 09/22/2025. CT abdomen did not show evidence of hydronephrosis. Keep Ledbetter catheter in place. Still limited urine output. : Ledbetter catheter in place. ENDO: Type 2 diabetes Hypothyroidism Monitor blood glucose. Sliding scale as ordered. On Synthroid. On stress dose steroids with hydrocortisone. Will start to wean these after he is off pressors. HEME: Leukocytosis, anemia CBC daily. No evidence of DIC at this time. ID: C. difficile infection with pancolitis Pneumonia (recently treated, resolving on CT) Continue Flagyl IV, p.o. and KS vancomycin Feeding: sips and chips Fluids: None Analgesia: none Activity: bedrest Thromboprophylaxis: heparin subcu Ulcer prophylaxis: pantoprazole Glycemic control: Sliding scale insulin Bowels: None Indwelling catheters: Ledbetter, nasogastric tube, FMS, left IJ central venous catheter (inserted 09/22/2025), right IJ HD catheter (inserted 09/22/2025) Antibiotics: Flagyl IV, p.o. and KS vancomycin Plan: Patient will be transferred for higher level of care. He is in need of contin uous renal replacement therapy. Is not tolerating hemodialysis sessions. Developed severe hypotension and tachycardia with atrial fibrillation. I discussed the case with the patient's smart energy specialist Dr. West and she agrees that he would benefit from CRRT. I discussed options for transfer with the patient and his , discussed [facility] and they would prefer not to go there. They would prefer [facility] however bed availability is limited. They are agreeable to go to [facility], [place] has excepted him. He will be transferring tonight. He will go to the medical ICU, Dr. Rehman she was accepting. He will be going to bed [id number]. I have personally spent 70 minutes of critical care time in the direct management of this patient. This is a life/limb threatening event. This includes time spent evaluating patient, direct bedside care, chart review, placing orders, interpretation of diagnostic studies, discussion with consultants, patient, and family members, as well as other required patient management activities. This time is exclusive of all separately billable procedures, and teaching time and separate from and in addition to any other critical care service time. Admission and Anticipated Discharge Date Admission Date: September 22, 2025 Subjective Past 24-hour events: Patient clinically improved over the past 24 hours. Did not receive dialysis yesterday. Levophed requirement continue to trend down. Urine output did not meat pickler. Arterial line was removed overnight. Nasogastric tube was inserted replacing Dobbhoff for bowel decompression. Rounding: Patient is in good spirits this morning. Family is at bedside. and sister are both present. Patient is wanting to try to drink some water, we will give him a small amount of water, however NG tube is to low intermittent suction. Can continue ice chips. Abdomen is soft today, still distended but not as significant as previous exams. KUB looks slightly improved, bowels are less distended. Nephrology perform dialysis today, they were able to run for 3 hours, he had 1.2 L removed. Was tachycardic with A-fib RVR and hypotensive. Phenylephrine was added to norepinephrine. Intake: 1077 mL Output: 80 mL urine, 1.2 L removed with dialysis Net: -203 mL Mechanical ventilation: None, on nasal cannula 6 L. Feeding: Sips and chips IV infusions: Norepinephrine, amiodarone, phenylephrine Indwelling catheters: Ledbetter, FMS, nasogastric tube, hemodialysis catheter, central venous catheter Laboratory: CBC: WBC 16, hemoglobin 13, platelet 226 Chemistry: Sodium 136, potassium 3.9, chloride 99, bicarb 20, anion gap 17, BUN 60, creatinine 4.45, glucose 181, calcium 7.2 (Ca x Phos close to 50, did not replace,) phosphorus 6.7, magnesium 2.1 ABG: None Review of Systems Review of Systems: Negative except as in HPI. Physical Exam Physical Exam: Physical examination: General: Appears ill, resting in bed, on nasal cannula, comfortable, not in distress. HEENT: Mucous membranes are dry. Sclera are nonicteric. Extraocular movements intact. No JVD appreciated. Skin: Warm and dry. No jaundice or bruising appreciated. Edema of extremities. Cardiovascular: Sinus tachycardia, with intermittent atrial fibrillation, on norepinephrine phenylephrine and amiodarone, no murmurs appreciated. Edema of lower extremities. Lungs: Diminished at bases, nontachypneic, on 6 L via nasal cannula with saturation of 98%. Abdomen: Less distended today, no pain to palpation, no bruising, diminished bowel sounds. Musculoskeletal: Normal muscle mass. Normal tone. Moving all extremities. No deformities appreciated. Neurologic: Awake and alert, oriented. CN II through XII are grossly intact. Speech is fluent. Nonfocal exam. Psychiatric: Appropriate cooperative during my exam. Results & Data Results & Data Vital Signs (Past 12 Hours) Vital Signs Temp Pulse Pulse Resp BP BP Pulse Ox 09/26/25 06:25 36.5 C 104 H 19 107/62 94 09/26/25 05:00 108 H 17 92 09/26/25 04:30 103 H 16 110/67 94 09/26/25 04:00 93/63 L 09/26/25 04:00 101 H 26 H 96/63 L 93 09/26/25 03:30 105/63 09/26/25 03:30 105/63 09/26/25 03:30 105/63 09/26/25 03:30 105/63 09/26/25 03:30 105/63 09/26/25 03:30 104 H 14 94 09/26/25 03:21 105 H 16 93 09/26/25 03:12 104 H 23 91 09/26/25 03:00 107 H 19 90 09/26/25 03:00 105/66 09/26/25 03:00 105/66 09/26/25 03:00 105/66 09/26/25 03:00 105/66 09/26/25 02:51 106 H 18 88 L 09/26/25 02:42 105 H 19 92 09/26/25 02:30 113 H 21 95 09/26/25 02:30 92/68 L 09/26/25 02:30 92/68 L 09/26/25 02:30 92/68 L 09/26/25 02:30 92/68 L 09/26/25 02:30 92/68 L 09/26/25 02:21 111 H 10 L 96 09/26/25 02:12 115 H 11 L 95 09/26/25 02:07 86/59 L 09/26/25 02:07 86/59 L 09/26/25 02:07 86/59 L 09/26/25 02:07 86/59 L 09/26/25 02:07 86/59 L 09/26/25 02:06 112 H 18 95 09/26/25 02:04 79/51 L 09/26/25 02:04 79/51 L 09/26/25 02:04 79/51 L 09/26/25 02:03 112 H 17 95 09/26/25 02:00 78/49 L 09/26/25 02:00 78/49 L 09/26/25 01:30 104 H 18 89/51 L 90 09/26/25 01:12 110 H 15 94 09/26/25 01:00 99/67 L 09/26/25 00:00 116 H 09/25/25 22:00 09/25/25 21:30 97 H 16 97 09/25/25 21:00 101 H 15 95 09/25/25 20:30 103 H 18 95 09/25/25 20:00 36.4 C L 102 H 21 94 09/25/25 19:45 103 H 16 104/54 L 94 O2 Del Method O2 Flow Rate 09/26/25 06:25 Nasal Cannula 09/26/25 05:00 Nasal Cannula 4 09/26/25 04:30 Nasal Cannula 4 09/26/25 04:00 09/26/25 04:00 Nasal Cannula 4 09/26/25 03:30 09/26/25 03:30 09/26/25 03:30 09/26/25 03:30 09/26/25 03:30 09/26/25 03:30 09/26/25 03:21 09/26/25 03:12 09/26/25 03:00 09/26/25 03:00 09/26/25 03:00 09/26/25 03:00 09/26/25 03:00 09/26/25 02:51 09/26/25 02:42 09/26/25 02:30 09/26/25 02:30 09/26/25 02:30 09/26/25 02:30 09/26/25 02:30 09/26/25 02:30 09/26/25 02:21 09/26/25 02:12 09/26/25 02:07 09/26/25 02:07 09/26/25 02:07 09/26/25 02:07 09/26/25 02:07 09/26/25 02:06 09/26/25 02:04 09/26/25 02:04 09/26/25 02:04 09/26/25 02:03 09/26/25 02:00 09/26/25 02:00 09/26/25 01:30 Nasal Cannula 4 09/26/25 01:12 Nasal Cannula 4 09/26/25 01:00 09/26/25 00:00 09/25/25 22:00 Nasal Cannula 4 09/25/25 21:30 Nasal Cannula 4 09/25/25 21:00 Nasal Cannula 4 09/25/25 20:30 Nasal Cannula 4 09/25/25 20:00 Nasal Cannula 4 09/25/25 19:45 Nasal Cannula 4 Coding Level of Care Code 09721 CRITICAL CARE 1ST 30-74M Diagnoses Septic shock A41.9; R65.21 Pancolitis K52.9 C. difficile colitis A04.72 Acute renal failure N17.9 Acute hypoxic respiratory failure J96.01 Acute hyponatremia E87.1 Metabolic acidosis E87.20 Pleural effusion J90 COPD (chronic obstructive pulmonary disease) J44.9 Atrial fibrillation with RVR I48.91
[2025-09-26] MEDS ORDERED: CALCIUM GLUCONATE 1,000 MG/60 ML BAG IV SCH (07:45)
--- NOTE | 2025-09-26 08:33 | XRay Report ---
KUB HISTORY: ilius COMPARISON STUDY: 09/25/2025 FINDINGS: Nasogastric tube tip is in the proximal stomach just beyond the GE junction. There is stabl e mild small bowel and colonic distention. No gross free air seen. IMPRESSION: 1. Nasogastric tube tip is in the proximal stomach just beyond the GE junction. 2. Stable mild diffuse bowel distention. ACT 112: Negative or not required by law. The above report was generated using voice recognition software. It may contain grammatical, syntax o r spelling errors. Electronically signed by: Ori Sol M.D. 09/26/2025 8:31 AM
--- NOTE | 2025-09-26 09:34 | Surgery Progress Note ---
Date of Service September 26, 2025 Assessment & Plan (1) C. difficile colitis: Plan: -Rectal tube remains in place -Continue antibiotic coverage . WBC slightly elevated today at 16.8, however is receiving steroids. No reported fevers. Continue to monitor -NGT placed yesterday for decompression due to suspected small bowel ileus on KUB. -Patient less distended on exam this morning, has no complaint of abdominal pain with palpation, denies any nausea or vomiting. Recommend keeping NG tube in place for today. May be clamped for meds. -No plans for surgical intervention at this time, will continue to treat conservatively for now. Admission and Anticipated Discharge Date Admission Date: September 22, 2025 Subjective Patient seen and evaluated this morning, states that he is feeling well this morning. Denies any abdominal pain NGT was placed yesterday for decompression for suspected small bowel ileus Abdomen appears to be less firm than previously and is nontender on exam Physical Exam Constitutional: WD/WN, vitals as above Respiratory: normal respiratory effort; no respiratory distress and no labored breathing Cardiovascular: Rate/Rhythm: + tachycardic (HR low 100s during exam ) Gastrointestinal (Abdomen): Abdomen less distended than previous. Soft, nontender to palpation, no rebound or guarding. No signs of peritonitis NGT in place (clamped for meds during time of exam) Results & Data Vital Signs (Past 12 Hours) Vital Signs Temp Pulse Resp BP Pulse Ox O2 Del Method O2 Flow Rate 09/26/25 06:25 36.5 C 104 H 19 107/62 94 Nasal Cannula 09/26/25 05:00 108 H 17 92 Nasal Cannula 4 09/26/25 04:30 103 H 16 110/67 94 Nasal Cannula 4 09/26/25 04:00 93/63 L 09/26/25 04:00 101 H 26 H 96/63 L 93 Nasal Cannula 4 09/26/25 03:30 105/63 09/26/25 03:30 105/63 09/26/25 03:30 105/63 09/26/25 03:30 105/63 09/26/25 03:30 105/63 09/26/25 03:30 104 H 14 94 09/26/25 03:21 105 H 16 93 09/26/25 03:12 104 H 23 91 09/26/25 03:00 107 H 19 90 09/26/25 03:00 105/66 09/26/25 03:00 105/66 09/26/25 03:00 105/66 09/26/25 03:00 105/66 09/26/25 02:51 106 H 18 88 L 09/26/25 02:42 105 H 19 92 09/26/25 02:30 113 H 21 95 09/26/25 02:30 92/68 L 09/26/25 02:30 92/68 L 09/26/25 02:30 92/68 L 09/26/25 02:30 92/68 L 09/26/25 02:30 92/68 L 09/26/25 02:21 111 H 10 L 96 09/26/25 02:12 115 H 11 L 95 09/26/25 02:07 86/59 L 09/26/25 02:07 86/59 L 09/26/25 02:07 86/59 L 09/26/25 02:07 86/59 L 09/26/25 02:07 86/59 L 09/26/25 02:06 112 H 18 95 09/26/25 02:04 79/51 L 09/26/25 02:04 79/51 L 09/26/25 02:04 79/51 L 09/26/25 02:03 112 H 17 95 09/26/25 02:00 78/49 L 09/26/25 02:00 78/49 L 09/26/25 01:30 104 H 18 89/51 L 90 Nasal Cannula 4 09/26/25 01:12 110 H 15 94 Nasal Cannula 4 09/26/25 01:00 99/67 L 09/26/25 00:00 116 H 09/25/25 22:00 Nasal Cannula 4 09/25/25 21:30 97 H 16 97 Nasal Cannula 4 PG Care Time/CCT Total # of Minutes Spent Total Time Spent with Patient: Total time spent is greater than 50% in coordination of care (as documented) at patient's floor/unit and/or counseling patient: [place] [address] SUB INP/OBS CARE 10/23MIN Patient Type Established History Problem Focused Exam Problem Focused Medical Decision Making Straight Forward Diagnoses C. difficile colitis A04.72
[2025-09-26] MEDS: PHENYLEPHRINE/NSS 25 MG/250 ML BAG IV SCH (10:45)
[2025-09-26] MEDS ORDERED: STAT IV Infusion **Titration per Protocol STA ×2 (10:53→13:52)
--- NOTE | 2025-09-26 10:54 | Hospitalist Progress Note ---
Date of Service September 26, 2025 Assessment & Plan (1) Septic shock: Plan: Secondary to c. diff pancolitis s/p 3L NSS with MAP, ongoing maintenance fluids per ICU Still on Levophed, vasopressin dc'd Vancomycin 500mg PO q6h + Metronidazole 500mg IV q8h Surgery consult appreciated-con't medical management Critical care following Plan to place NTG for bowel decompression (2) Acute renal failure: Plan: -BEAN 2nd to septic shock -Nephrology following -had HD yesterday (3) Atrial fibrillation with RVR: Plan: -amiodarone drip stop -anticoagulation held (4) Acute hypoxic respiratory failure: Plan: Baseline: 2LPM O2 at rest, 4LPM O2 on exertion Resolved Continue maintenance inhaler Incentive spirometry (5) Hx of gastric ulcer: Plan: -protonix Plan 84 year old male presents with progressive weakness, diarrhea and shortness of breath. Diagnosed with c. diff as outpatient 2 days prior to admission, started Dificid day prior to admission. Took his usual medications including antihypertensives day of admission. VTE Prophylaxis - heparin 5000 units SQ BID Disposition - ICU Admission and Anticipated Discharge Date Admission Date: September 22, 2025 Results & Data Results & Data Vital Signs (Past 12 Hours) Vital Signs Temp Pulse Pulse Resp BP Pulse Ox O2 Del Method 09/26/25 10:30 121 H 81/47 L 09/26/25 10:15 117 H 97/51 L 09/26/25 10:00 125 H 68/50 L 09/26/25 09:48 102 H 96/63 L 09/26/25 09:37 36.9 C 105 H 09/26/25 09:27 37.2 C 09/26/25 09:00 104 H 18 91 09/26/25 09:00 97/59 L 09/26/25 09:00 97/59 L 09/26/25 09:00 97/59 L 09/26/25 09:00 97/59 L 09/26/25 09:00 97/59 L 09/26/25 08:30 107/68 09/26/25 08:30 107/68 09/26/25 08:30 107/68 09/26/25 08:30 107/68 09/26/25 08:30 107/68 09/26/25 08:30 105 H 19 91 09/26/25 08:00 107 H 25 H 92 09/26/25 08:00 114/68 09/26/25 08:00 114/68 09/26/25 08:00 114/68 09/26/25 08:00 114/68 09/26/25 08:00 114/68 09/26/25 07:30 108 H 16 93 09/26/25 07:30 109/64 09/26/25 07:30 109/64 09/26/25 07:30 109/64 09/26/25 07:30 109/64 09/26/25 07:00 106 H 18 90 09/26/25 07:00 102/61 09/26/25 07:00 102/61 09/26/25 07:00 102/61 09/26/25 07:00 102/61 09/26/25 06:25 36.5 C 104 H 19 107/62 94 Nasal Cannula 09/26/25 05:00 108 H 17 92 Nasal Cannula 09/26/25 04:30 103 H 16 110/67 94 Nasal Cannula 09/26/25 04:00 93/63 L 09/26/25 04:00 101 H 26 H 96/63 L 93 Nasal Cannula 09/26/25 03:30 105/63 09/26/25 03:30 105/63 09/26/25 03:30 105/63 09/26/25 03:30 105/63 09/26/25 03:30 105/63 09/26/25 03:30 104 H 14 94 09/26/25 03:21 105 H 16 93 09/26/25 03:12 104 H 23 91 09/26/25 03:00 107 H 19 90 09/26/25 03:00 105/66 09/26/25 03:00 105/66 09/26/25 03:00 105/66 09/26/25 03:00 105/66 09/26/25 02:51 106 H 18 88 L 09/26/25 02:42 105 H 19 92 09/26/25 02:30 113 H 21 95 09/26/25 02:30 92/68 L 09/26/25 02:30 92/68 L 09/26/25 02:30 92/68 L 09/26/25 02:30 92/68 L 09/26/25 02:30 92/68 L 09/26/25 02:21 111 H 10 L 96 09/26/25 02:12 115 H 11 L 95 09/26/25 02:07 86/59 L 09/26/25 02:07 86/59 L 09/26/25 02:07 86/59 L 09/26/25 02:07 86/59 L 09/26/25 02:07 86/59 L 09/26/25 02:06 112 H 18 95 09/26/25 02:04 79/51 L 09/26/25 02:04 79/51 L 09/26/25 02:04 79/51 L 09/26/25 02:03 112 H 17 95 09/26/25 02:00 78/49 L 09/26/25 02:00 78/49 L 09/26/25 01:30 104 H 18 89/51 L 90 Nasal Cannula 09/26/25 01:12 110 H 15 94 Nasal Cannula 09/26/25 01:00 99/67 L 09/26/25 00:00 116 H O2 Flow Rate 09/26/25 10:30 09/26/25 10:15 09/26/25 10:00 09/26/25 09:48 09/26/25 09:37 09/26/25 09:27 09/26/25 09:00 09/26/25 09:00 09/26/25 09:00 09/26/25 09:00 09/26/25 09:00 09/26/25 09:00 09/26/25 08:30 09/26/25 08:30 09/26/25 08:30 09/26/25 08:30 09/26/25 08:30 09/26/25 08:30 09/26/25 08:00 09/26/25 08:00 09/26/25 08:00 09/26/25 08:00 09/26/25 08:00 09/26/25 08:00 09/26/25 07:30 09/26/25 07:30 09/26/25 07:30 09/26/25 07:30 09/26/25 07:30 09/26/25 07:00 09/26/25 07:00 09/26/25 07:00 09/26/25 07:00 09/26/25 07:00 09/26/25 06:25 09/26/25 05:00 4 09/26/25 04:30 4 09/26/25 04:00 09/26/25 04:00 4 09/26/25 03:30 09/26/25 03:30 09/26/25 03:30 09/26/25 03:30 09/26/25 03:30 09/26/25 03:30 09/26/25 03:21 09/26/25 03:12 09/26/25 03:00 09/26/25 03:00 09/26/25 03:00 09/26/25 03:00 09/26/25 03:00 09/26/25 02:51 09/26/25 02:42 09/26/25 02:30 09/26/25 02:30 09/26/25 02:30 09/26/25 02:30 09/26/25 02:30 09/26/25 02:30 09/26/25 02:21 09/26/25 02:12 09/26/25 02:07 09/26/25 02:07 09/26/25 02:07 09/26/25 02:07 09/26/25 02:07 09/26/25 02:06 09/26/25 02:04 09/26/25 02:04 09/26/25 02:04 09/26/25 02:03 09/26/25 02:00 09/26/25 02:00 09/26/25 01:30 4 09/26/25 01:12 4 09/26/25 01:00 09/26/25 00:00 Laboratory Results Laboratory Results - last 24 hr 09/25/25 09/25/25 09/26/25 12:46 18:35 00:30 WBC RBC Hgb Hct MCV MCH MCHC RDW Std Deviation RDW Coeff of Vanessa Plt Count MPV Immature Gran % (Auto) Neut % (Auto) Lymph % (Auto) Craig % (Auto) Eos % (Auto) Baso % (Auto) Neut # (Auto) Lymph # (Auto) Craig # (Auto) Eos # (Auto) Baso # (Auto) Immature Gran # (Auto) Dohle Bodies Polychromasia Echinocytes Sodium Potassium Chloride Carbon Dioxide Anion Gap BUN Creatinine Est Cr Clr Drug Dosing eGFR BUN/Creatinine Ratio Glucose POC Glucose 158 H POC Glucose (other) 174 H 161 H Calcium Phosphorus Magnesium 09/26/25 09/26/25 05:51 05:58 WBC 16.82 H RBC 4.06 L Hgb 13.4 L Hct 37.9 L MCV 93.3 MCH 33.0 MCHC 35.4 RDW Std Deviation 51.3 H RDW Coeff of Vanessa 15.0 H Plt Count 226 MPV 9.7 Immature Gran % (Auto) 1.7 Neut % (Auto) 90.8 Lymph % (Auto) 2.7 Craig % (Auto) 4.5 Eos % (Auto) 0.1 Baso % (Auto) 0.2 Neut # (Auto) 15.28 H Lymph # (Auto) 0.45 L Craig # (Auto) 0.75 H Eos # (Auto) 0.01 Baso # (Auto) 0.04 Immature Gran # (Auto) 0.29 H Dohle Bodies 1+ Polychromasia 1+ Echinocytes 2+ Sodium 136 Potassium 3.9 Chloride 99 Carbon Dioxide 20 L Anion Gap 17 H BUN 60 H D Creatinine 4.45 H D Est Cr Clr Drug Dosing 11.8 eGFR 12.45 BUN/Creatinine Ratio 13.5 Glucose 181 H POC Glucose 142 H POC Glucose (other) Calcium 7.2 L Phosphorus 6.7 H Magnesium 2.1 Diagnostic Findings KUB X-Ray 09/26/25 07:39 KUB HISTORY: ilius COMPARISON STUDY: 09/25/2025 FINDINGS: Nasogastric tube tip is in the proximal stomach just beyond the GE junction. There is stable mild small bowel and colonic distention. No gross free air seen. IMPRESSION: 1. Nasogastric tube tip is in the proximal stomach just beyond the GE junction. 2. Stable mild diffuse bowel distention. ACT 112: Negative or not required by law. The above report was generated using voice recognition software. It may contain grammatical, syntax or spelling errors. Electronically signed by: Ori Sol M.D. 09/26/2025 8:31 AM PG Care Time/CCT Total # of Minutes Spent Total Time Spent with Patient: Total time spent is greater than 50% in coordination of care (as documented) at patient's floor/unit and/or counseling patient: Coding Diagnoses Septic shock A41.9; R65.21 Acute renal failure N17.9 Atrial fibrillation with RVR I48.91 Acute hypoxic respiratory failure J96.01 Hx of gastric ulcer Z87.11
--- NOTE | 2025-09-26 12:56 | Nephrology Progress Note ---
Date of Service September 26, 2025 Assessment & Plan (1) Acute renal failure: (2) Acute hyponatremia: (3) Acute hypoxic respiratory failure: (4) Metabolic acidosis: Plan Mr. Gallardo is a 84-year-old gentleman admitted with septic shock secondary to C. difficile colitis, BEAN, oliguria with multiple electrolyte abnormality including severe metabolic acidosis requiring urgent hemodialysis. Had [id number] dialysis last 3 days, still remained oliguric and kidney function worsen off dialysis. --Dialysis today, continue to monitor urine output and electrolyte, so far no sign of renal recovery. Will need tunneled dialysis catheter to continue on dialysis while waiting for renal recovery. --continue to monitor for recovery of kidney function, improvement in urine output. --pressor support as needed. --dose meds for eGFR <10 --Dr. West will take over the Nephrology care going forward as she has been seeing Mr. Gallardo in her office. It was a pleasure to see Mr. Gallardo. Admission and Anticipated Discharge Date Admission Date: September 22, 2025 Chevy Ledezma was seen and evaluated in ICU this morning. He reports feeling better, abdomen feels less distended. Blood pressure still low, on pressor. Kidney function continues to worsen off dialysis and remained oliguric. Review of Systems Review of Systems: All systems reviewed & are unremarkable except as noted in Subjective Physical Exam Constitutional: WD/WN, vitals as above + ill appearing; no acute distress Eyes: + anicteric sclerae Respiratory: Auscultation: lungs clear to auscultation bilaterally Cardiovascular: RRR, no murmur, no edema Gastrointestinal (Abdomen): Inspection/Auscultation: + abdomen distended Percussion/Palpation: + abdomen rigid; abdomen nontender Skin: no rashes, warm and dry Neurologic: no focal motor deficits Psychiatric: Orientation: alert and oriented x 3 Results & Data Vital Signs (Past 12 Hours) Vital Signs Temp Pulse Pulse Resp BP Pulse Ox Pulse Ox 09/26/25 12:45 125 H 9 L 97 09/26/25 12:45 77/55 L 09/26/25 12:45 77/55 L 09/26/25 12:45 77/55 L 09/26/25 12:30 126 H 29 H 95 09/26/25 12:30 78/48 L 09/26/25 12:30 78/48 L 09/26/25 12:30 78/48 L 09/26/25 12:30 78/48 L 09/26/25 12:30 78/48 L 09/26/25 12:30 126 H 78/48 L 09/26/25 12:15 123 H 81/50 L 09/26/25 12:00 135 H 78/49 L 09/26/25 11:45 110 H 72/47 L 09/26/25 11:30 112 H 76/50 L 09/26/25 11:15 139 H 80/51 L 09/26/25 11:00 134 H 73/56 L 09/26/25 10:45 129 H 75/59 L 09/26/25 10:30 121 H 81/47 L 09/26/25 10:15 117 H 97/51 L 09/26/25 10:00 90 09/26/25 10:00 125 H 68/50 L 09/26/25 09:48 102 H 96/63 L 09/26/25 09:37 36.9 C 105 H 09/26/25 09:27 37.2 C 09/26/25 09:00 104 H 18 91 09/26/25 09:00 97/59 L 09/26/25 09:00 97/59 L 09/26/25 09:00 97/59 L 09/26/25 09:00 97/59 L 09/26/25 09:00 97/59 L 09/26/25 08:30 107/68 09/26/25 08:30 107/68 09/26/25 08:30 107/68 09/26/25 08:30 107/68 09/26/25 08:30 107/68 09/26/25 08:30 105 H 19 91 09/26/25 08:00 09/26/25 08:00 104 H 09/26/25 08:00 107 H 25 H 92 09/26/25 08:00 114/68 09/26/25 08:00 114/68 09/26/25 08:00 114/68 09/26/25 08:00 114/68 09/26/25 08:00 114/68 09/26/25 07:30 108 H 16 93 09/26/25 07:30 109/64 09/26/25 07:30 109/64 09/26/25 07:30 109/64 09/26/25 07:30 109/64 09/26/25 07:00 106 H 18 90 09/26/25 07:00 102/61 09/26/25 07:00 102/61 09/26/25 07:00 102/61 09/26/25 07:00 102/61 09/26/25 06:25 36.5 C 104 H 19 107/62 94 09/26/25 05:00 108 H 17 92 09/26/25 04:30 103 H 16 110/67 94 09/26/25 04:00 93/63 L 09/26/25 04:00 101 H 26 H 96/63 L 93 09/26/25 03:30 105/63 09/26/25 03:30 105/63 09/26/25 03:30 105/63 09/26/25 03:30 105/63 09/26/25 03:30 105/63 09/26/25 03:30 104 H 14 94 09/26/25 03:21 105 H 16 93 09/26/25 03:12 104 H 23 91 09/26/25 03:00 107 H 19 90 09/26/25 03:00 105/66 09/26/25 03:00 105/66 09/26/25 03:00 105/66 09/26/25 03:00 105/66 09/26/25 02:51 106 H 18 88 L 09/26/25 02:42 105 H 19 92 09/26/25 02:30 113 H 21 95 09/26/25 02:30 92/68 L 09/26/25 02:30 92/68 L 09/26/25 02:30 92/68 L 09/26/25 02:30 92/68 L 09/26/25 02:30 92/68 L 09/26/25 02:21 111 H 10 L 96 09/26/25 02:12 115 H 11 L 95 09/26/25 02:07 86/59 L 09/26/25 02:07 86/59 L 09/26/25 02:07 86/59 L 09/26/25 02:07 86/59 L 09/26/25 02:07 86/59 L 09/26/25 02:06 112 H 18 95 09/26/25 02:04 79/51 L 09/26/25 02:04 79/51 L 09/26/25 02:04 79/51 L 09/26/25 02:03 112 H 17 95 09/26/25 02:00 78/49 L 09/26/25 02:00 78/49 L 09/26/25 01:30 104 H 18 89/51 L 90 09/26/25 01:12 110 H 15 94 09/26/25 01:00 99/67 L O2 Del Method O2 Del Method O2 Flow Rate O2 Flow Rate 09/26/25 12:45 09/26/25 12:45 09/26/25 12:45 09/26/25 12:45 09/26/25 12:30 09/26/25 12:30 09/26/25 12:30 09/26/25 12:30 09/26/25 12:30 09/26/25 12:30 09/26/25 12:30 09/26/25 12:15 09/26/25 12:00 09/26/25 11:45 09/26/25 11:30 09/26/25 11:15 09/26/25 11:00 09/26/25 10:45 09/26/25 10:30 09/26/25 10:15 09/26/25 10:00 Nasal Cannula 6 09/26/25 10:00 09/26/25 09:48 09/26/25 09:37 09/26/25 09:27 09/26/25 09:00 09/26/25 09:00 09/26/25 09:00 09/26/25 09:00 09/26/25 09:00 09/26/25 09:00 09/26/25 08:30 09/26/25 08:30 09/26/25 08:30 09/26/25 08:30 09/26/25 08:30 09/26/25 08:30 09/26/25 08:00 Nasal Cannula 4 09/26/25 08:00 09/26/25 08:00 09/26/25 08:00 09/26/25 08:00 09/26/25 08:00 09/26/25 08:00 09/26/25 08:00 09/26/25 07:30 09/26/25 07:30 09/26/25 07:30 09/26/25 07:30 09/26/25 07:30 09/26/25 07:00 09/26/25 07:00 09/26/25 07:00 09/26/25 07:00 09/26/25 07:00 09/26/25 06:25 Nasal Cannula 09/26/25 05:00 Nasal Cannula 4 09/26/25 04:30 Nasal Cannula 4 09/26/25 04:00 09/26/25 04:00 Nasal Cannula 4 09/26/25 03:30 09/26/25 03:30 09/26/25 03:30 09/26/25 03:30 09/26/25 03:30 09/26/25 03:30 09/26/25 03:21 09/26/25 03:12 09/26/25 03:00 09/26/25 03:00 09/26/25 03:00 09/26/25 03:00 09/26/25 03:00 09/26/25 02:51 09/26/25 02:42 09/26/25 02:30 09/26/25 02:30 09/26/25 02:30 09/26/25 02:30 09/26/25 02:30 09/26/25 02:30 09/26/25 02:21 09/26/25 02:12 09/26/25 02:07 09/26/25 02:07 09/26/25 02:07 09/26/25 02:07 09/26/25 02:07 09/26/25 02:06 09/26/25 02:04 09/26/25 02:04 09/26/25 02:04 09/26/25 02:03 09/26/25 02:00 09/26/25 02:00 09/26/25 01:30 Nasal Cannula 4 09/26/25 01:12 Nasal Cannula 4 09/26/25 01:00 PG Care Time/CCT Total # of Minutes Spent Total Time Spent with Patient: Total time spent is greater than 50% in coordination of care (as documented) at patient's floor/unit and/or counseling patient: Coding Level of Care Code 65039 SUB INP/OBS CARE 2/35MIN Diagnoses Acute renal failure N17.9 Acute hyponatremia E87.1 Acute hypoxic respiratory failure J96.01 Metabolic acidosis E87.20
[2025-09-26] MEDS: VASOPRESSIN 20 UNITS in SODIUM CHLORIDE 0.9% 100 ML IV SCH (14:13)
[2025-09-26] MEDS ORDERED: Nursing to Pharmacy Communication SCH (14:30)
--- NOTE | 2025-09-26 15:09 | Discharge Summary ---
Discharge Summary Date of Service September 26, 2025 Principal Dx & Hospital Course #1 = Principal Diagnosis (1) Septic shock: Secondary to C. difficile pancolitis Surgery saw the patient Patient has NG tube for decompression As per advisory software engineer, patient has been on IV hydrocortisone for septic shock along with pressors Patient has been receiving IV Flagyl, p.o. and OH vancomycin Abdominal still distended but no abdominal pain and NG tube on low intermittent suction for bowel decompression Will need surgical follow-up at [facility] (2) Acute renal failure: Anion gap metabolic acidosis with lactic acidosis Sodium is slowly improving, up to 134 today. Nephrology was consulted, emergent dialysis initiated on 09/22/2025, had sessions on the and . Did not tolerate dialysis well today, needs continuous renal replacement therapy. Financial Business Analyst Dr. Conte has arranged for patient to be transferred to [facility] for CRRT Metabolic acidosis improving with dialysis. Bicarb infusion stopped 08/30. CT abdomen did not show evidence of hydronephrosis. Keep Ledbetter catheter in place. Still limited urine output. (3) Atrial fibrillation with RVR: Central venous catheter and left IJ (09/22/2025) Went into A-fib RVR 09/23/2025 Continue norepinephrine, advisory software engineer added vasopressin. Goal MAP 65. We will continue amiodarone for now. Anticoagulation has not been added (4) Acute hypoxic respiratory failure: Patient has underlying COPD DuoNebs as needed CT imaging reviewed by advisory software engineer and appears pneumonia is improving Continue oxygen via nasal cannula (5) Hx of gastric ulcer: Continue PPI (6) C. difficile colitis: As above Plan Financial Business Analyst has arranged for patient to be transferred to [facility] for CRRT Admission HPI Per Admitting Provider Darien Gallardo is an 84 year old male who presents to the ER with 6 days of fatigue, shortness of breath and watery diarrhea. He notes symptoms have got worse during that time and this morning he was too weak to get out of bed, appeared cold, clammy therefore EMS were called to bring him to the ER. During the course of the illness he contacted his PCP for something to slow down the diarrhea but recommended a stool sample first for c. diff which he completed on Friday and was subsequently positive. However his pharmacy didn't have Dificid in stock until yesterday when he first picked it up and took the first dose around 3pm. His diarrhea has improved since starting the Dificid and he has not had a bowel movement since coming to the ER. No nausea, vomiting or abdominal pain. He reports normal urination at home without any urinary symptoms. No fever but having intermittent chills. He has never previously had c. diff but was recently on ceftriaxone/cefuroxime + azithromycin at the end of July for a diagnosis of pneumonia. Of note he did have a rash over his entire body a week after this which cleared up in 4-5 days. Since his pneumonia diagnosis he has required 2-4LPM O2 but was on room air prior to this. Discharge Exam General: Ill-appearing, nasal cannula in place, NG tube in place Psych: Awake and alert HEENT: Anicteric sclera, NG tube in place CVS: Irregular rate and rhythm Lungs: Diminished breath sounds at bases, no wheezing noted Abdomen: Soft, distended, nontender Ext: Edema noted, bilateral SCDs noted Discharge Plan Discharge Items Patient Disposition: Transfer Acute Care Hospital Reason For Visit: SEPSIS, C. DIFF, BENA Discharge Diagnosis: C. difficile pancolitis Septic shock secondary to C. difficile pancolitis New onset atrial fibrillation Acute kidney injury Metabolic acidosis Condition on Discharge: Fair Activity: As commented below Activity Comment: As per [facility] Non-emergency contact: Primary Care Provider Call non-emergency contact if: you have any medication questions Follow-up/Referrals: Silvestre Bee MD [Primary Care Provider] - Diet: Other - See Diet Comment Diet Comment: N.p.o. Addtl Attending Provider Instructions: You are being transferred to [facility] for CRRT. Pending Studies at Discharge: No Stand-Alone Forms: My [facility] Skilled Items Patient informed of condition?: Yes DNR: Yes Discharge Level of Care: Other Communicable Disease: No Discharge Prognosis: Other Lines: Peripheral IV Urinary Catheter: Yes Medications and DC Order Prescriptions: New vancomycin 1,000 mg Recon Soln 500 mg OH Q6H Qty: 10 0RF vancomycin 1,000 mg Recon Soln 500 mg PO Q6 Qty: 10 0RF Continued umeclidinium-vilanterol [Anoro Ellipta] 62.5-25 mcg/actuation blister with device 1 inh inhalation DAILY Qty: 60 3RF citalopram [Celexa] 20 mg Tablet 20 mg PO QAM pantoprazole [Protonix] 40 mg Tablet,Delayed Release (Dr/Ec) 40 mg PO DAILY [id number] Tablet 1 tab PO QAM cyclosporine [Restasis] 0.05 % Dropperette 1 drp OPB BID levothyroxine 75 mcg Capsule 75 mcg PO DAILYBB Patient Comments: HALF HR BEFORE BREAKFAST lorazepam [Ativan] 0.5 mg Tablet 0.5 mg PO Q8H PRN (Reason: Anxiety) Flarex 0.1 % Drops,Suspension 1 drp OPB QAM Systane (propylene glycol) 0.4-0.3 % Drops 1 drp OPB DIRECTED PRN (Reason: Dry Eyes) Held atorvastatin [Lipitor] 40 mg Tablet 40 mg PO QAM Hold Instructions: Resume on 10/06/25. To be reviewed on discharge from [facility] lisinopril 20 mg Tablet 20 mg PO QAM Hold Instructions: Resume on 10/06/25. To be reviewed on discharge from [facility] amlodipine [Norvasc] 2.5 mg Tablet 2.5 mg PO BID Hold Instructions: Resume on 10/06/25. To be reviewed on discharge from [facility] tamsulosin [Flomax] 0.4 mg Capsule 0.4 mg PO QAM Hold Instructions: Resume on 10/06/25. To be reviewed on discharge from [facility] Patient Comments: AFTERNOON dutasteride 0.5 mg Capsule 0.5 mg PO QAM Hold Instructions: Resume on 10/06/25. To be reviewed on discharge from [facility] Patient Comments: AFTERNOON diphenhydramine HCl [Benadryl] 25 mg Capsule 25 mg PO DIRECTED PRN (Reason: NEEDED) Hold Instructions: Resume on 10/05/25. To be reviewed on discharge from [facility] acetaminophen [Tylenol Extra Strength] 500 mg Tablet 500 mg PO Q6H PRN (Reason: PAIN/FEVER) Hold Instructions: Resume on 10/06/25. To be reviewed on discharge from [facility] sildenafil 100 mg Tablet 100 mg PO DAILY PRN (Reason: Sexual Activity) Hold Instructions: Resume on 10/06/25. To be reviewed on discharge from [facility] Rx Instructions: administer 30 minutes to 4 hours before activity Discharge Orders: Discharge Order (Routine); Ordered 09/26/25 Ordered By: Hamlet Ahn Admission Data Admit Date/Time: 09/22/25 09:26 Attending Provider: Hamlet Ahn Admit Provider: Jay Owen Primary Care Provider: Silvestre Bee Other Providers: Jay Owen; Cricket Nelson; Coral Conte; Avtar [facility] Hospital Stay Data Consultations 09/22/25 09:09 ED Decision to Admit Stat 09/22/25 09:39 Consult General Surgery Stat 09/22/25 10:53 Consult Financial Business Analyst Routine 09/22/25 17:07 Consult Nephrology Routine 09/26/25 14:29 Burn CD for patient Stat Procedures Performed Laboratory Results - last 72 hr 09/23/25 09/23/25 09/24/25 17:37 20:05 00:53 WBC RBC Hgb Hct MCV MCH MCHC RDW Std Deviation RDW Coeff of Vanessa Plt Count MPV Immature Gran % (Auto) Neut % (Auto) Lymph % (Auto) Wilson % (Auto) Eos % (Auto) Baso % (Auto) Neut # (Auto) Lymph # (Auto) Wilson # (Auto) Eos # (Auto) Baso # (Auto) Immature Gran # (Auto) Absolute Nucleated RBC Nucleated RBC % (auto) Dohle Bodies Polychromasia Echinocytes Sodium 133 L Potassium 3.9 Chloride 100 Carbon Dioxide 22 Anion Gap 11 BUN 44 H Creatinine 3.17 H D Est Cr Clr Drug Dosing 14.2 eGFR 18.70 BUN/Creatinine Ratio 13.9 Glucose 189 H POC Glucose POC Glucose (other) 179 H 194 H Calcium 7.3 L Phosphorus Magnesium Total Bilirubin AST ALT Alkaline Phosphatase B-Natriuretic Peptide Total Protein Albumin Globulin Albumin/Globulin Ratio Procalcitonin 09/24/25 09/24/25 09/24/25 05:12 05:28 11:49 WBC 11.79 H RBC 3.66 L Hgb 12.0 L Hct 33.3 L MCV 91.0 MCH 32.8 MCHC 36.0 RDW Std Deviation 47.8 H RDW Coeff of Vanessa 14.4 Plt Count 296 MPV 9.4 Immature Gran % (Auto) 3.3 Neut % (Auto) 84.8 Lymph % (Auto) 3.2 Wilson % (Auto) 8.4 Eos % (Auto) 0.0 Baso % (Auto) 0.3 Neut # (Auto) 10.00 H Lymph # (Auto) 0.38 L Wilson # (Auto) 0.99 H Eos # (Auto) 0.00 Baso # (Auto) 0.03 Immature Gran # (Auto) 0.39 H Absolute Nucleated RBC 0.03 Nucleated RBC % (auto) 0.3 Dohle Bodies Polychromasia Echinocytes Sodium 134 L Potassium 3.8 Chloride 98 Carbon Dioxide 21 Anion Gap 15 H BUN 54 H Creatinine 3.52 H D Est Cr Clr Drug Dosing 12.8 eGFR 16.49 BUN/Creatinine Ratio 15.3 Glucose 203 H POC Glucose POC Glucose (other) 191 H Calcium 7.0 L Phosphorus 5.8 H Magnesium 2.0 Total Bilirubin 0.3 AST 27 ALT 28 Alkaline Phosphatase 105 H B-Natriuretic Peptide 456 H Total Protein 4.4 L Albumin 2.2 L Globulin 2.2 L Albumin/Globulin Ratio 1.0 Procalcitonin 5.00 H 09/24/25 09/24/25 09/24/25 11:51 18:15 18:18 WBC RBC Hgb Hct MCV MCH MCHC RDW Std Deviation RDW Coeff of Vanessa Plt Count MPV Immature Gran % (Auto) Neut % (Auto) Lymph % (Auto) Wilson % (Auto) Eos % (Auto) Baso % (Auto) Neut # (Auto) Lymph # (Auto) Wilson # (Auto) Eos # (Auto) Baso # (Auto) Immature Gran # (Auto) Absolute Nucleated RBC Nucleated RBC % (auto) Dohle Bodies Polychromasia Echinocytes Sodium 136 Potassium 3.2 L Chloride 99 Carbon Dioxide 24 Anion Gap 13 H BUN 30 H D Creatinine 2.44 H D Est Cr Clr Drug Dosing 21.2 eGFR 25.61 BUN/Creatinine Ratio 12.3 Glucose 162 H POC Glucose 185 H 139 H POC Glucose (other) Calcium 7.2 L Phosphorus Magnesium Total Bilirubin AST ALT Alkaline Phosphatase B-Natriuretic Peptide Total Protein Albumin Globulin Albumin/Globulin Ratio Procalcitonin 09/24/25 09/25/25 09/25/25 23:49 04:19 12:46 WBC 14.07 H RBC 3.86 L Hgb 12.6 L Hct 35.8 L MCV 92.7 MCH 32.6 MCHC 35.2 RDW Std Deviation 50.6 H RDW Coeff of Vanessa 14.9 H Plt Count 306 MPV 9.8 Immature Gran % (Auto) 2.6 Neut % (Auto) 85.9 Lymph % (Auto) 3.6 Wilson % (Auto) 7.5 Eos % (Auto) 0.0 Baso % (Auto) 0.4 Neut # (Auto) 12.09 H Lymph # (Auto) 0.50 L Wilson # (Auto) 1.06 H Eos # (Auto) 0.00 Baso # (Auto) 0.05 Immature Gran # (Auto) 0.37 H Absolute Nucleated RBC 0.03 Nucleated RBC % (auto) 0.2 Dohle Bodies Polychromasia Echinocytes Sodium 135 L Potassium 3.9 D Chloride 100 Carbon Dioxide 22 Anion Gap 13 H BUN 39 H Creatinine 3.09 H D Est Cr Clr Drug Dosing 16.7 eGFR 19.29 BUN/Creatinine Ratio 12.6 Glucose 168 H POC Glucose POC Glucose (other) 149 H 174 H Calcium 7.2 L Phosphorus 5.1 H Magnesium 2.0 Total Bilirubin 0.3 AST 27 ALT 26 Alkaline Phosphatase 117 H B-Natriuretic Peptide Total Protein 4.3 L Albumin 2.1 L Globulin 2.2 L Albumin/Globulin Ratio 1.0 Procalcitonin 09/25/25 09/26/25 09/26/25 18:35 00:30 05:51 WBC 16.82 H RBC 4.06 L Hgb 13.4 L Hct 37.9 L MCV 93.3 MCH 33.0 MCHC 35.4 RDW Std Deviation 51.3 H RDW Coeff of Vanessa 15.0 H Plt Count 226 MPV 9.7 Immature Gran % (Auto) 1.7 Neut % (Auto) 90.8 Lymph % (Auto) 2.7 Wilson % (Auto) 4.5 Eos % (Auto) 0.1 Baso % (Auto) 0.2 Neut # (Auto) 15.28 H Lymph # (Auto) 0.45 L Wilson # (Auto) 0.75 H Eos # (Auto) 0.01 Baso # (Auto) 0.04 Immature Gran # (Auto) 0.29 H Absolute Nucleated RBC Nucleated RBC % (auto) Dohle Bodies 1+ Polychromasia 1+ Echinocytes 2+ Sodium 136 Potassium 3.9 Chloride 99 Carbon Dioxide 20 L Anion Gap 17 H BUN 60 H D Creatinine 4.45 H D Est Cr Clr Drug Dosing 11.8 eGFR 12.45 BUN/Creatinine Ratio 13.5 Glucose 181 H POC Glucose 158 H POC Glucose (other) 161 H Calcium 7.2 L Phosphorus 6.7 H Magnesium 2.1 Total Bilirubin AST ALT Alkaline Phosphatase B-Natriuretic Peptide Total Protein Albumin Globulin Albumin/Globulin Ratio Procalcitonin 09/26/25 09/26/25 05:58 11:40 WBC RBC Hgb Hct MCV MCH MCHC RDW Std Deviation RDW Coeff of Vanessa Plt Count MPV Immature Gran % (Auto) Neut % (Auto) Lymph % (Auto) Wilson % (Auto) Eos % (Auto) Baso % (Auto) Neut # (Auto) Lymph # (Auto) Wilson # (Auto) Eos # (Auto) Baso # (Auto) Immature Gran # (Auto) Absolute Nucleated RBC Nucleated RBC % (auto) Dohle Bodies Polychromasia Echinocytes Sodium Potassium Chloride Carbon Dioxide Anion Gap BUN Creatinine Est Cr Clr Drug Dosing eGFR BUN/Creatinine Ratio Glucose POC Glucose 142 H 116 H POC Glucose (other) Calcium Phosphorus Magnesium Total Bilirubin AST ALT Alkaline Phosphatase B-Natriuretic Peptide Total Protein Albumin Globulin Albumin/Globulin Ratio Procalcitonin 09/26/25 09/26/25 09/26/25 11:40 05:58 05:51 WBC 16.82 H RBC 4.06 L Hgb 13.4 L Hct 37.9 L MCV 93.3 MCH 33.0 MCHC 35.4 RDW Std Deviation 51.3 H RDW Coeff of Vanessa 15.0 H Plt Count 226 MPV 9.7 Immature Gran % (Auto) 1.7 Neut % (Auto) 90.8 Lymph % (Auto) 2.7 Wilson % (Auto) 4.5 Eos % (Auto) 0.1 Baso % (Auto) 0.2 Neut # (Auto) 15.28 H Lymph # (Auto) 0.45 L Wilson # (Auto) 0.75 H Eos # (Auto) 0.01 Baso # (Auto) 0.04 Immature Gran # (Auto) 0.29 H Dohle Bodies 1+ Polychromasia 1+ Echinocytes 2+ Sodium 136 Potassium 3.9 Chloride 99 Carbon Dioxide 20 L Anion Gap 17 H BUN 60 H D Creatinine 4.45 H D Est Cr Clr Drug Dosing 11.8 eGFR 12.45 BUN/Creatinine Ratio 13.5 Glucose 181 H POC Glucose 116 H 142 H POC Glucose (other) Calcium 7.2 L Phosphorus 6.7 H Magnesium 2.1 09/26/25 09/25/25 00:30 18:35 WBC RBC Hgb Hct MCV MCH MCHC RDW Std Deviation RDW Coeff of Vanessa Plt Count MPV Immature Gran % (Auto) Neut % (Auto) Lymph % (Auto) Wilson % (Auto) Eos % (Auto) Baso % (Auto) Neut # (Auto) Lymph # (Auto) Wilson # (Auto) Eos # (Auto) Baso # (Auto) Immature Gran # (Auto) Dohle Bodies Polychromasia Echinocytes Sodium Potassium Chloride Carbon Dioxide Anion Gap BUN Creatinine Est Cr Clr Drug Dosing eGFR BUN/Creatinine Ratio Glucose POC Glucose 158 H POC Glucose (other) 161 H Calcium Phosphorus Magnesium Diagnostic Imagining Performed Chest X-Ray 09/22/25 07:28 EXAM: Radiograph of the Chest 1 View INDICATION: Sepsis TECHNIQUE: Frontal view of the chest. COMPARISON: 08/25/2025 FINDINGS: Lungs and pleural spaces: Increased small right pleural effusion and right basilar airspace consolidation. New coarse bandlike atelectasis noted in the left base and right Ravindra hilum. Improved right upper lobe infiltrate. No pneumothorax. Heart: Stable prominent shadow. Mediastinum: Normal contour. Bones/joints: No fracture, erosion or dislocation. Soft tissues: No abnormality noted. No radiopaque foreign body noted. Vasculature: Stable ectatic aorta. Upper abdomen: No abnormality noted. IMPRESSION: 1. New right basilar infiltrate concerning for pneumonia and increased small right pleural effusion. 2. Improved right upper lobe infiltrate. ACT 112: N/A Electronically signed by Merari Arana 09-22-2025 08:31 AM KUB X-Ray 09/22/25 07:43 EXAM: Radiograph of the Abdomen 1 View INDICATION: Sepsis. Diarrhea. TECHNIQUE: Frontal supine view of the abdomen/pelvis. COMPARISON: No relevant prior studies available. FINDINGS: Limitations: None. Lower thorax: Patchy basilar infiltrates noted. Gastrointestinal tract: Air scattered throughout non-dilated intestinal loops. Organs: Catheter projects over the urinary bladder. Bones/joints: No fracture, erosion or dislocation. Soft tissues: Edematous colonic loops noted with gasless rectum. IMPRESSION: Edematous colon most concerning for colitis. CT abdomen and pelvis recommended preferably with IV contrast. ACT 112: N/A Electronically signed by Merari Arana 09-22-2025 08:33 AM Abdomen/Pelvis CT 09/22/25 08:42 EXAM: CT Abdomen and Pelvis Without Intravenous Contrast INDICATION: C. difficile colitis. Acute renal failure. Sepsis. TECHNIQUE: Axial computed tomography images of the abdomen and pelvis without intravenous contrast. Sagittal and coronal reformatted images were created and reviewed. This CT exam was performed using one or more of the following dose reduction techniques: automated exposure control, adjustment of the mA and/or kV according to patient size, and/or use of iterative reconstruction technique. COMPARISON: No relevant prior studies available. FINDINGS: Limitations: None. Lung bases: See separately dictated chest CT report. ABDOMEN: Liver: Lack of intravenous contrast limits detection of some masses. No abnormality noted. Gallbladder and bile ducts: No calcified stones or surrounding fluid. No ductal dilation. Pancreas: No pancreatic mass, calcification, inflammation or ductal dilation noted. Spleen: No acute abnormality noted. Adrenals: No acute abnormality noted. Kidneys and ureters: Simple bilateral renal cysts noted. No follow-up necessary. No stones or hydronephrosis. Stomach and bowel: There is moderate thickening and inflammation of the entire colon. There is thickening of distal small bowel loops. No small bowel obstruction. No visible pneumatosis. PELVIS: Appendix: The appendix is not distinctly defined. Bladder: Catheter balloon inflated in the urinary bladder which is collapsed and not optimally assessed. No stone noted. Reproductive: No abnormalities noted. ABDOMEN and PELVIS: Intraperitoneal space: Small amounts of free fluid in the abdomen and pelvis. No free air. No loculated collection. Bones/joints: Degenerative changes noted throughout the spine. No acute osseous abnormality seen. Soft tissues: No acute abnormality noted. Vasculature: Atherosclerotic calcification of the aorta and branches. No aneurysm. Lymph nodes: No pathologically enlarged lymph nodes. IMPRESSION: 1. Moderate to severe pancolitis with probable backwash ileitis. 2. Mild ascites without abscess. ACT 112: N/A Electronically signed by Merari Arana 09-22-2025 09:[address] 09/22/25 08:42 EXAM: CT Chest Without Intravenous Contrast INDICATION: Sepsis. C. difficile colitis. Shortness of breath. TECHNIQUE: Axial computed tomography images of the chest without intravenous contrast. Sagittal and coronal reformatted images were created and reviewed. This CT exam was performed using one or more of the following dose reduction techniques: automated exposure control, adjustment of the mA and/or kV according to patient size, and/or use of iterative reconstruction technique. COMPARISON: 08/25/2025 t physical FINDINGS: Limitations: None. Lungs and pleural spaces: Increased small layering right pleural effusion with maximal thickness in the right posterior costophrenic sulcus of 5.2 cm. Stable trace left pleural effusion and thickening. No pneumothorax. Stable right upper lobe irregular segmental airway thickening and bronchiectasis. Increasing consolidation in the apical and posterior right upper lobe. Underlying ground glass infiltrate is improved. There is increased dependent atelectasis in the lower lobes. Heart: Stable enlargement. There is some iatrogenically introduced air in the right ventricle which is not an atypical finding. Mediastinum: The soft distal half of the esophagus is distended with fluid and mildly thickened. Thyroid: No abnormality noted. Bones/joints: No acute changes. Soft tissues: No acute abnormality noted. Vasculature: No abnormality noted. No thoracic aortic aneurysm. Lymph nodes: No enlarged lymph nodes. Intraperitoneal space: Free fluid noted in the upper abdomen. No free air in the upper abdomen. IMPRESSION: 1. Increased right pleural effusion. 2. Increased consolidation in the right upper lobe with stable irregular segmental upper lobe airway thickening. 3. Distended, thickened esophagus with fluid. 4. Free fluid noted in the upper abdomen. ACT 112: N/A Electronically signed by Merari Arana 09-22-2025 09:30 AM Chest X-Ray 09/22/25 11:49 EXAM: Radiograph of the Chest 1 View INDICATION: Line placement TECHNIQUE: Frontal view of the chest. Image obtained at 12:19 PM COMPARISON: CT chest earlier the same day FINDINGS: Lungs and pleural spaces: Small subpulmonic right pleural effusion. Stable basilar airspace consolidation. Heart: Shape and configuration within normal limits allowing for technique. Mediastinum: Normal contour. Bones/joints: Degenerative changes noted throughout the spine. No acute osseous abnormality seen. Soft tissues: No abnormality noted. No radiopaque foreign body noted. Tubes, lines and devices: Left internal jugular central venous line has been placed. As it enters the SVC it courses cranially and terminates in the proximal SVC. Upper abdomen: No abnormality noted. IMPRESSION: 1. Left internal jugular central venous line has been placed. As it enters the SVC it courses cranially and terminates in the proximal SVC. 2. Stable pulmonary infiltrates and pleural effusion. ACT 112: N/A Electronically signed by Merari Arana 09-22-2025 12:41 PM Chest X-Ray 09/22/25 12:51 EXAM: Radiograph of the Chest 1 View INDICATION: Line placement. TECHNIQUE: Frontal view of the chest. Image obtained at 1:05 PM COMPARISON: Image approximately 1 hour earlier. FINDINGS: Lungs and pleural spaces: Shallow inspiration with stable coarse infiltrates in both lungs. Small right pleural effusion layers posteriorly. No pneumothorax. Heart: Shape and configuration within normal limits allowing for technique. Mediastinum: Normal contour. Bones/joints: No fracture, erosion or dislocation. Soft tissues: No abnormality noted. No radiopaque foreign body noted. Tubes, lines and devices: Left internal jugular catheter again noted. Tip at the brachiocephalic caval junction. Upper abdomen: No abnormality noted. IMPRESSION: 1. Central line as above. 2. Grossly stable airspace disease and small right pleural effusion. ACT 112: N/A Electronically signed by Merari Arana 09-22-2025 13:45 PM Chest X-Ray 09/22/25 14:43 EXAM: Radiograph of the Chest 1 View INDICATION: Feeding tube placement. TECHNIQUE: Frontal view of the lower chest and upper abdomen obtained for the purposes of localizing the feeding tube. COMPARISON: No relevant prior studies available. FINDINGS: Lungs and pleural spaces: Small basilar pleural effusions and patchy infiltrates noted. Heart: Shape and configuration within normal limits allowing for technique. Mediastinum: Normal contour. Bones/joints: No fracture, erosion or dislocation. Soft tissues: No abnormality noted. No radiopaque foreign body noted. Tubes, lines and devices: Radiopaque tip of the feeding tube is in the expected location of the pyloric channel. Upper abdomen: Nonspecific aeration of bowel loops in the upper abdomen noted. IMPRESSION: 1. Radiopaque tip of the feeding tube is in the expected location of the pyloric channel. 2. Small pleural effusions and mild patchy basilar infiltrates. ACT 112: N/A Electronically signed by Merari Arana 09-22-2025 3:57 PM Chest X-Ray 09/22/25 18:13 EXAM: Radiograph of the Chest 1 View INDICATION: Evaluate right jugular dialysis catheter. TECHNIQUE: Frontal view of the chest. COMPARISON: 1:05 PM the same day FINDINGS: Lungs and pleural spaces: Persistent but improved patchy airspace disease in the lung bases. No pneumothorax. Heart: Shape and configuration within normal limits allowing for technique. Mediastinum: Normal contour. Bones/joints: No fracture, erosion or dislocation. Soft tissues: No abnormality noted. No radiopaque foreign body noted. Tubes, lines and devices: Insert right internal jugular central venous catheter tip in the distal superior vena cava. Left internal jugular central venous catheter terminates in the transverse brachiocephalic. NG tip. Upper abdomen: No abnormality noted. IMPRESSION: 1. Lines and tubes as above. 2. Persistent but improved patchy airspace disease in the lung bases. ACT 112: N/A Electronically signed by Merari Arana 09-22-2025 8:07 PM KUB X-Ray 09/24/25 09:03 KUB HISTORY: abd dist COMPARISON STUDY: 09/22/2025 FINDINGS: Interval feeding tube tip is likely the distal stomach. There is gaseous distention of the small bowel and the colon measuring up to 9 cm at the colon and 3 cm at the small bowel, stable. No gross free air seen. IMPRESSION: Stable exam. ACT 112: Negative or not required by law. The above report was generated using voice recognition software. It may contain grammatical, syntax or spelling errors. Electronically signed by: Ori Sol M.D. 09/24/2025 10:02 AM KUB X-Ray 09/25/25 07:14 KUB HISTORY: ileus/colitis COMPARISON STUDY: 09/24/2025 FINDINGS: Feeding tube tip is in the mid to distal stomach. Gaseous distention of the small bowel and colon measures up to 3 cm at the small bowel and 9 cm of the colon, stable. No gross free air seen. IMPRESSION: Stable exam. ACT 112: Negative or not required by law. The above report was generated using voice recognition software. It may contain grammatical, syntax or spelling errors. Electronically signed by: Ori Sol M.D. 09/25/2025 8:26 AM KUB X-Ray 09/26/25 07:39 KUB HISTORY: ilius COMPARISON STUDY: 09/25/2025 FINDINGS: Nasogastric tube tip is in the proximal stomach just beyond the GE junction. There is stable mild small bowel and colonic distention. No gross free air seen. IMPRESSION: 1. Nasogastric tube tip is in the proximal stomach just beyond the GE junction. 2. Stable mild diffuse bowel distention. ACT 112: Negative or not required by law. The above report was generated using voice recognition software. It may contain grammatical, syntax or spelling errors. Electronically signed by: Ori Sol M.D. 09/26/2025 8:31 AM 09/22/25 08:42 CT abd pelvis wo con Stat CT chest diagnostic wo con Stat Pending Results Patient Have Any Pending Studies at Discharge: No Discharge Instructions Given to Patient (Per Discharging Provider) You are being transferred to [facility] for CRRT. Total Time Total Time Spent Total Time Spent (In Minutes): 40 minutes Coding Level of Care Code 66444 INP/OBS DISCH >30 MIN Diagnoses Septic shock A41.9; R65.21 Acute renal failure N17.9 Atrial fibrillation with RVR I48.91 Acute hypoxic respiratory failure J96.01 Hx of gastric ulcer Z87.11 C. difficile colitis A04.72
[2025-09-26 16:21] VITALS: BP 105/77; PULSE 111; RESP 18; O2SAT 96
[2025-09-26 16:22] VITALS: TEMP 97.9
== END 2025-09-26 17:07 | disposition short-term general hospital (02) | DRG 871 ==
LOC: ED 07:20 → 1E 09:26 → SUATTDRO 09:26 → 1E 09:56